=== PATIENT | female | born 1940 | race Caucasian/White ===

== ENCOUNTER → 2016-11-22 | Outpatient (CLI) | payer OTHER ==
[~2016-11-22] MED LIST: CMD/1; CMD1 PO; CTP2 PO; LEVO25TA5; LEVO25TA5 PO; LSX40 PO; METO100T14 PO; POTA20TA13 PO; SIMV80TA2 PO; TRIA0.02 TD; WARF1TAB PO; WARF4TAB44 PO
== END | disposition home or self-care (01) ==
LOC: C.LAB1850 09:23
PROVIDERS: ATTEND Internal Medicine
DX: E03.9 Hypothyroidism, unspecified (principal)

== ENCOUNTER → 2016-12-20 | Outpatient (CLI) | payer OTHER ==
[~2016-12-20] MED LIST changes: +IPRA1AER2 INH
== END | disposition home or self-care (01) ==
LOC: C.LAB1850 10:37
PROVIDERS: ATTEND Physician Assistant Medical
DX: E03.9 Hypothyroidism, unspecified (principal)

== ENCOUNTER → 2017-02-14 | Outpatient (CLI) | payer OTHER | END | disposition home or self-care (01) | LOC: C.LAB1850 09:42 | PROVIDERS: ATTEND Physician Assistant Medical | DX: E03.9 Hypothyroidism, unspecified (principal) ==

== ENCOUNTER → 2017-04-11 | Outpatient (CLI) | payer OTHER | END | disposition home or self-care (01) | LOC: C.LAB1850 10:21 | PROVIDERS: ATTEND Physician Assistant Medical | DX: E03.9 Hypothyroidism, unspecified (principal) ==

== ENCOUNTER 2017-04-20 22:58 | Emergency (ER) | payer OTHER ==
[~2017-04-20] VITALS: Ht 160 cm; Wt 62.9 kg
[~2017-04-20 22:58] MED LIST changes: -CMD/1; -IPRA1AER2 INH; -LEVO25TA5; -LEVO25TA5 PO; -WARF4TAB44 PO
[2017-04-20 23:04] VITALS: TEMP 36.7; Ht 160 cm; Wt 62.9 kg
[2017-04-20] MEDS ORDERED: KETOROLAC TROMETHAMINE 30 MG/ML VIAL IV STA (23:34)
[2017-04-20] MEDS ORDERED: CMD/1 (23:42)
[2017-04-20] MEDS ORDERED: LEVO25TA5 (23:42)
[2017-04-20] MEDS ORDERED: CTP2 PO (23:42)
--- NOTE | 2017-04-20 23:44 | EMERGENCY ROOM VISIT NOTE ---
History Report prepared by Phillip: Wes Hoyos Under the Supervision of: Dr. Carol Gilmore D.O. First contact with patient: 23:09 Chief Complaint: HIP PAIN Stated Complaint: LEFT HIP PAIN History of Present Illness The patient is a 76 year old female who presents to the Emergency Room with complaints of constant left hip pain that started around 1800. She rates her pain as an 8/10 in severity and admits the pain is worsened with movement. The patient states she felt fine today until around 1800 when she was walking through her mobile home and felt her left leg give out. She states that someone caught her before she had a chance to fall on the ground. The patient states that she tried to ambulate following the incident, but she could not ambulate without someone holding her up. She reports that she has had a history of hip problems in the past when she broke her right hip following a falling incident two weeks ago. Per the patient's history, she normally has a walker due to her history of visual impairment. She admits to a history of pneumonia, kidney problems, and thyroid problems. The patient reports that she has been eating and drinking her normal amount. She states that she typically sees Dr. Dickinson, James Sorto, and Dr. Hartmann for medical problems. The patient denies any abdominal pain, groin pain, fevers, and chills. Source of History: patient Onset: 1800 Position: leg (left) Symptom Intensity: 8/10 Timing: constant Modifying Factors (Worsening): movement Associated Symptoms: No fevers, No chills, No abdominal pain Review of Systems See HPI for pertinent positives & negatives. A total of 10 systems reviewed and were otherwise negative. Past Medical & Surgical Medical Problems: (1) Blind (2) Coumadin therapy (3) HTN (hypertension) (4) PE (5) Skin problems Surgical Problems: (1) H/O breast surgery (2) H/O: hysterectomy (3) History of appendectomy (4) History of hip surgery Family History Heart disease Hypertension Lung disease Social History Smoking Status: Former Smoker Alcohol Use: none Marital Status: Housing Status: lives with family Occupation Status: unemployed Current/Historical Medications Scheduled Clonidine HCl (Clonidine HCl), 0.2 MG PO Q12 Furosemide (Furosemide), 40 MG PO DAILY Levothyroxine Sodium (Levothyroxine Sodium), 75 MCG PO 3XWK Levothyroxine Sodium (Levothyroxine Sodium), 50 MCG PO 4XWK Metoprolol Tartrate (Lopressor) (Lopressor), 100 MG PO BID Potassium Chloride Microencaps (Potassium Chloride Er), 20 MEQ PO BID Simvastatin (Zocor), 80 MG PO QPM Warfarin Sodium (Warfarin Sodium), 1 TAB PO 3XWK Warfarin Sodium (Warfarin Sodium), 0.5 TAB PO 4XWK Allergies Coded Allergies: Aspirin (Verified Adverse Reaction, Mild, VOMITING, 04/20/17) Physical Exam Vital Signs Date Time Temp Pulse Resp B/P (MAP) Pulse Ox O2 Delivery O2 Flow Rate FiO2 04/21/17 00:47 72 18 160/89 96 Room Air 04/20/17 23:04 36.7 80 18 182/103 94 Room Air Physical Exam HEENT: Head - normocephalic and atraumatic Pupils are equal, round, and reactive to light. Extraocular eye muscles are intact, and sclera are anicteric. Nose - moist nasal mucosa without discharge. Mouth - moist buccal mucosa. Oropharynx is nonerythematous and there is no tonsillar exudate or edema noted. Neck: Supple; no JVD, nuchal rigidity, cervical lymphadenopathy. Heart: Regular rate and rhythm. There is a normal S1 and S2 with no murmurs, clicks, or gallops appreciated. Lungs: Clear to auscultation bilaterally with no wheezes, rales, or rhonchi. Abdomen: Soft, completely nontender, nondistended, with good bowel sounds. There are no palpable pulsatile masses or hepatosplenomegaly. There is no guarding, rigidity, or rebound noted. Extremities: No evidence of cyanosis, clubbing, or edema. There are easily palpable peripheral pulses. Limited range of motion to left hip secondary to pain. No significant pain with palpation. Skin: warm and dry with good turgor and no rashes. Medical Decision & Procedures ER Provider Diagnostic Interpretation: X-ray results as stated below per interpretation by me: LEFT HIP X-RAY: No obvious fractures, no joint effusion. Laboratory Results 04/20/17 23:40 Red Blood Count 4.41, Mean Corpuscular Volume 92.1, Mean Corpuscular Hemoglobin 29.9, Mean Corpuscular Hemoglobin Concent 32.5, Mean Platelet Volume 10.6, Neutrophils (%) (Auto) 77.3, Lymphocytes (%) (Auto) 13.4, Monocytes (%) (Auto) 8.3, Eosinophils (%) (Auto) 0.5, Basophils (%) (Auto) 0.3, Neutrophils # (Auto) 7.32, Lymphocytes # (Auto) 1.27, Monocytes # (Auto) 0.79, Eosinophils # (Auto) 0.05, Basophils # (Auto) 0.03 04/20/17 23:40 Test 04/20/17 23:40 White Blood Count 9.48 K/uL (4.8-10.8) Red Blood Count 4.41 M/uL (4.2-5.4) Hemoglobin 13.2 g/dL (12.0-16.0) Hematocrit 40.6 % (37-47) Mean Corpuscular Volume 92.1 fL (80-100) Mean Corpuscular Hemoglobin 29.9 pg (25-34) Mean Corpuscular Hemoglobin Concent 32.5 g/dl (32-36) Platelet Count 185 K/uL (130-400) Mean Platelet Volume 10.6 fL (7.4-10.4) Neutrophils (%) (Auto) 77.3 % Lymphocytes (%) (Auto) 13.4 % Monocytes (%) (Auto) 8.3 % Eosinophils (%) (Auto) 0.5 % Basophils (%) (Auto) 0.3 % Neutrophils # (Auto) 7.32 K/uL (1.4-6.5) Lymphocytes # (Auto) 1.27 K/uL (1.2-3.4) Monocytes # (Auto) 0.79 K/uL (0.11-0.59) Eosinophils # (Auto) 0.05 K/uL (0-0.5) Basophils # (Auto) 0.03 K/uL (0-0.2) RDW Standard Deviation 41.9 fL (36.4-46.3) RDW Coefficient of Variation 12.3 % (11.5-14.5) Immature Granulocyte % (Auto) 0.2 % Immature Granulocyte # (Auto) 0.02 K/uL (0.00-0.02) Erythrocyte Sedimentation Rate 39 mm/hr (0-21) Anion Gap 3.0 mmol/L (3-11) Est Creatinine Clear Calc Drug Dose 48.5 ml/min Estimated GFR () 72.0 Estimated GFR (Non- 62.2 BUN/Creatinine Ratio 12.4 (10-20) Calcium Level 9.3 mg/dl (8.5-10.1) C-Reactive Protein < 0.29 mg/dl (0-0.29) Laboratory results per my review. Medications Administered Medications (Trade) Dose Ordered Sig/Dominique Route Start Time Stop Time Status Last Admin Dose Admin Ketorolac Tromethamine (Toradol Inj) 30 mg NOW STAT IV 04/20/17 23:34 04/20/17 23:36 DC 04/20/17 23:45 30 MG Procedure Toradol Injection 30 mg IV ED Course 2325: Past medical records reviewed. The patient was evaluated in room B07. A complete history and physical exam was performed. Laboratory studies were drawn as above. 2334: Toradol Injection 30 mg IV. The patient went for plain films of the left hip as described above. 0058: I reevaluated the patient and she is experiencing significant improvement in pain with the Toradol administration. She will be ambulated soon. I discussed the results and treatment plan with the patient. She agreed and will able to be discharged home if she is able to ambulate. 0103: Nursing informed me that the patient was able to ambulate normally. She was discharged home. Medical Decision The patient is a 76 year old female who presents to the ED with complaints of constant left leg pain that began around 1800. Differential diagnosis includes occult fracture of the hip, tenosynovitis, bursitis, septic joint, hip strain. Lab results showed: Erythrocyte Sedimentation Rate 39, No Leukocytosis, Stable H &H, Glucose 114, Normal Renal function, Normal C reactive protein. The patient had a sudden onset of left hip pain. She denies any trauma. We considered the possibility of tenosynovitis and septic joint. The patient's sedimentation rate is slightly elevated with a normal C-reactive protein. There is no fever or leukocytosis. The patient's symptoms have resolved after Toradol. I've asked the patient to follow-up with her PCP if the discomfort continues. She was told to return here to the emergency department if she developed a fever. Medication Reconcilliation Current Medication List: was personally reviewed by me Blood Pressure Screening Patient's blood pressure: Elevated blood pressure Blood pressure disposition: Elevated BP felt to be situational Secondary to pain. Impression Primary Impression: Left hip pain Scribe Attestation The scribe's documentation has been prepared under my direction and personally reviewed by me in its entirety. I confirm that the note above accurately reflects all work, treatment, procedures, and medical decision making performed by me. Departure Information Dispostion Home / Self-Care Referrals No Doctor, Assigned (PCP) Forms HOME CARE DOCUMENTATION FORM, IMPORTANT VISIT INFORMATION, WORK / SCHOOL INSTRUCTIONS Patient Instructions My [facility] Additional Instructions Rest. Take motrin 600mg every 6 hours with food for pain Follow up with PCP by Monday if pain persists. Return to the ER if pain worsens or you develop a fever.
[2017-04-20] MEDS ORDERED: LEVO25TA5 PO ×2 (23:45)
[2017-04-20] MEDS ORDERED: WARF4TAB44 PO ×2 (23:47)
[2017-04-21 00:06] LABS: BASO % 0.3 %; BASO ABS # 0.03 K/uL (0-0.2); COMPLETE YES; EOS % 0.5 %; HEMATOCRIT 40.6 % (37-47); IG% 0.2 %; LYMPH % 13.4 %; LYMPH ABS # 1.27 K/uL (1.2-3.4); MEAN CELL VOLUME 92.1 fL (80-100); MEAN CORPUSCULAR HEMOGLOBIN 29.9 pg (25-34); MEAN CORPUSCULAR HGB CONC 32.5 g/dl (32-36); MEAN PLATELET VOLUME 10.6 fL (7.4-10.4); MONO % 8.3 %; NEUT % 77.3 %; PLATELET COUNT 185 K/uL (130-400); RED BLOOD COUNT 4.41 M/uL (4.2-5.4); WHITE BLOOD COUNT 9.48 K/uL (4.8-10.8)
[2017-04-21 00:24] LABS: BLOOD UREA NITROGEN 11 mg/dl (7-18); BUN/CREATININE RATIO 12.4 (10-20); CALCIUM 9.3 mg/dl (8.5-10.1); CARBON DIOXIDE 32 mmol/L (21-32); CHLORIDE 105 mmol/L (98-107); CREATININE 0.91 mg/dl (0.60-1.20); GLUCOSE 114 mg/dl (70-99); POTASSIUM 4.3 mmol/L (3.5-5.1); SODIUM 140 mmol/L (136-145)
[2017-04-21 00:25] LABS: C-REACTIVE PROTEIN < 0.29 mg/dl (0-0.29)
[2017-04-21 00:47] VITALS: BP 160/89; PULSE 72; O2SAT 96
--- NOTE | 2017-04-21 07:13 | DIAGNOSTIC IMAGING REPORT ---
LEFT HIP 2 VIEWS CLINICAL HISTORY: Left hip pain. FINDINGS: AP and frog-leg views of left hip are obtained. No prior studies are available for comparison at the time of dictation. The skeletal structures are osteopenic. There is no radiographic evidence of fracture in the left hip or the visualized left hemipelvis. Minimal arthritic change is noted in the left hip. Sclerotic change is seen in the left sacroiliac joint. The overlying soft tissues are within normal limits. Mild atherosclerotic calcification is seen in the left femoral artery. IMPRESSION: 1. There is no radiographic evidence of left hip fracture. 2. Osteopenia and mild arthritic change as above. Electronically signed by: Ruben Collins M.D. 04/21/2017 7:12 AM Dictated Date/Time: 04/21/2017 7:11 AM
== END 2017-04-21 01:09 | disposition home or self-care (01) ==
LOC: EDBD 22:58 → C.EDB 22:59
DX: M25.552 Pain in left hip (principal); H54.0 Blindness, both eyes; I10 Essential (primary) hypertension; Z79.01 Long term (current) use of anticoagulants; I26.99 Other pulmonary embolism without acute cor pulmonale; Z82.49 Family history of ischemic heart disease and other diseases of the circulatory system; Z87.891 Personal history of nicotine dependence

== ENCOUNTER 2017-06-18 23:15 | Inpatient (IN) | payer OTHER ==
[~2017-06-18] VITALS: Ht 165.1 cm; Wt 60.9 kg
[~2017-06-18 23:15] MED LIST changes: -CMD1 PO; +LEVO25TA5 PO; -TRIA0.02 TD; -WARF1TAB PO; +WARF4TAB44 PO
--- NOTE | 2017-06-18 23:43 | EMERGENCY ROOM VISIT NOTE ---
History Report prepared by Phillip: Lex Jean Baptiste Under the Supervision of: Dr. Carol Gilmore D.O. First contact with patient: 23:23 Chief Complaint: RECTAL BLEEDING Stated Complaint: VAGINAL BLEEDING History of Present Illness The patient is a 76 year old female who presents to the Emergency Room for a rectal bleed that she experience shortly prior to arrival. The patient states that she felt like she was going to have a diarrhea-like bowel movement this evening. After going to the restroom she was told by her that there was blood in the toilet, as the patient is blind. She denies having experienced any bloody stools in the past. She has never had a colonoscopy performed. The patient is on Coumadin due to a history of pulmonary emboli. She had her INR checked two weeks ago and it was slightly elevated, but she could not recall the specific number. She has had trouble with her INR levels since she started a new thyroid medication 1 month ago. Source of History: patient Onset: Shortly SCALLOPER Position: other (Gastrointestinal ) Quality: other (GI Bleeding) Associated Symptoms: + diarrhea Review of Systems See HPI for pertinent positives & negatives. A total of 10 systems reviewed and were otherwise negative. Past Medical & Surgical Medical Problems: (1) Blind (2) Coumadin therapy (3) HTN (hypertension) (4) Lower GI bleed (5) PE (6) Skin problems Surgical Problems: (1) H/O breast surgery (2) H/O: hysterectomy (3) History of appendectomy (4) History of hip surgery Family History Heart disease Hypertension Lung disease Social History Smoking Status: Former Smoker Alcohol Use: none Marital Status: Housing Status: lives with family Occupation Status: unemployed Current/Historical Medications Scheduled Clonidine HCl (Clonidine HCl), 0.2 MG PO Q12 Furosemide (Furosemide), 40 MG PO DAILY Levothyroxine Sodium (Levothyroxine Sodium), 75 MCG PO 3XWK Levothyroxine Sodium (Levothyroxine Sodium), 50 MCG PO 4XWK Metoprolol Tartrate (Lopressor) (Lopressor), 100 MG PO BID Potassium Chloride Microencaps (Potassium Chloride Er), 20 MEQ PO BID Simvastatin (Zocor), 80 MG PO QPM Warfarin Sodium (Warfarin Sodium), 1 TAB PO DAILY Allergies Coded Allergies: Aspirin (Verified Adverse Reaction, Mild, VOMITING, 06/18/17) Physical Exam Vital Signs Date Time Temp Pulse Resp B/P (MAP) Pulse Ox O2 Delivery O2 Flow Rate FiO2 06/19/17 01:39 83 23 145/86 93 Room Air 06/19/17 00:34 86 23 154/81 94 Room Air 06/18/17 23:21 36.5 85 24 177/99 95 Room Air Physical Exam HEENT: Head - normocephalic and atraumatic Pupils are equal, round, and reactive to light. Extraocular eye muscles are intact, and sclera are anicteric. Nose - moist nasal mucosa without discharge. Mouth - moist buccal mucosa. Oropharynx is nonerythematous and there is no tonsillar exudate or edema noted. Neck: Supple; no JVD, nuchal rigidity, cervical lymphadenopathy. Heart: Regular rate and rhythm. There is a normal S1 and S2 with no murmurs, clicks, or gallops appreciated. Lungs: Clear to auscultation bilaterally with no wheezes, rales, or rhonchi. Abdomen: Soft, completely nontender, nondistended, with good bowel sounds. There are no palpable pulsatile masses or hepatosplenomegaly. There is no guarding, rigidity, or rebound noted. Extremities: No evidence of cyanosis, clubbing, or edema. There are easily palpable peripheral pulses. Skin: Pale. warm and dry with good turgor and no rashes. Rectal: Moderate amount of blood at the rectum. Obvious external hemorrhoids. Medical Decision & Procedures Laboratory Results 06/18/17 23:49 06/18/17 23:49 Test 06/18/17 23:49 Red Blood Count 4.20 M/uL (4.2-5.4) Mean Corpuscular Volume 92.4 fL (80-100) Mean Corpuscular Hemoglobin 31.9 pg (25-34) Mean Corpuscular Hemoglobin Concent 34.5 g/dl (32-36) RDW Standard Deviation 42.5 fL (36.4-46.3) RDW Coefficient of Variation 12.6 % (11.5-14.5) Mean Platelet Volume 10.7 fL (7.4-10.4) Prothrombin Time 28.6 SECONDS (9.0-12.0) Prothromb Time International Ratio 2.6 (0.9-1.1) Activated Partial Thromboplast Time 36.7 SECONDS (21.0-31.0) Partial Thromboplastin Ratio 1.4 Anion Gap 8.0 mmol/L (3-11) Estimated GFR () 57.3 Estimated GFR (Non- 49.4 BUN/Creatinine Ratio 14.5 (10-20) Calcium Level 9.1 mg/dl (8.5-10.1) Laboratory results per my review. Medications Administered Medications (Trade) Dose Ordered Sig/Dominique Route Start Time Stop Time Status Last Admin Dose Admin Phytonadione 5 mg/ Sodium Chloride 50.5 ml @ 101 mls/hr ONE ONCE IV 06/19/17 01:30 06/19/17 01:59 DC 06/19/17 01:39 101 MLS/HR ECG Indication: other (GI Bleed) Rate (beats per minute): 86 Rhythm: normal sinus Findings: no acute ischemic change, no ectopy ED Course 2325: Past medical records reviewed. The patient was evaluated in room B12. A complete history and physical exam was performed. An IV lock was initiated and labs were drawn as above. 0055: I reevaluated the patient at this time. She is doing well. I discussed her laboratory results. The patient had a large bowel movement with significant amount of blood and blood clots. 0101: I discussed the case with Dr. [facility] Hospitalist, he will evaluate the patient for further treatment. Medical Decision The patient is a 76 year old female who presents to the Emergency Department for a rectal bleed. Differential Diagnosis includes; Hemorrhoidal bleeding, lower gastrointestinal bleeding, supratherapeutic INR, anemia, upper gastrointestinal bleeding. Laboratory results were reviewed and show; Normal white count, normal hemoglobin and hematocrit, normal renal function, normal glucose, and an INR of 2.6. The patient denies any abdominal pain or cramping. She had what she thought was normal bowel movements night with a little bit of diarrhea while in reality there was hematochezia. The patient has never had a colonoscopy. Her H&H are stable. She was hemodynamically stable. I discussed the case with the [facility] Hospitalist and they will evaluate for further management. Medication Reconcilliation Current Medication List: was personally reviewed by me Blood Pressure Screening Patient's blood pressure: Elevated blood pressure Will be evaluated during impatient stay. Consults Time Called: 57 Consulting Physician: Dr. Janusz BRUNO Hospitalist Returned Call: 0101 I discussed the case with Dr. Janusz BRUNO Hospitalist, he will evaluate the patient for further treatment. Impression Primary Impression: Rectal bleeding Scribe Attestation The scribe's documentation has been prepared under my direction and personally reviewed by me in its entirety. I confirm that the note above accurately reflects all work, treatment, procedures, and medical decision making performed by me. Departure Information Dispostion Being Evaluated By Hospitalist Referrals Nemesio Dickinson M.D. (PCP) Patient Instructions My [facility]
[2017-06-18 23:56] LABS: HEMATOCRIT 38.8 % (37-47); MEAN CELL VOLUME 92.4 fL (80-100); MEAN CORPUSCULAR HEMOGLOBIN 31.9 pg (25-34); MEAN CORPUSCULAR HGB CONC 34.5 g/dl (32-36); MEAN PLATELET VOLUME 10.7 fL (7.4-10.4); PLATELET COUNT 176 K/uL (130-400); WHITE BLOOD COUNT 8.13 K/uL (4.8-10.8)
[2017-06-19] VITALS (8 sets, daily range): BP systolic 92–172; BP diastolic 54–98; PULSE 69–86; TEMP 36.4–36.8; O2SAT 94–96; Ht 165.1 cm; Wt 60.9 kg
[2017-06-19 00:07] LABS: INR 2.6 (0.9-1.1); PARTIAL THROMBOPLASTIN RATIO 1.4; PROTHROMBIN TIME (PATIENT) 28.6 SECONDS (9.0-12.0)
[2017-06-19 00:15] LABS: BLOOD UREA NITROGEN 16 mg/dl (7-18); BUN/CREATININE RATIO 14.5 (10-20); CALCIUM 9.1 mg/dl (8.5-10.1); CARBON DIOXIDE 30 mmol/L (21-32); CHLORIDE 103 mmol/L (98-107); GLUCOSE 105 mg/dl (70-99); POTASSIUM 4.2 mmol/L (3.5-5.1); SODIUM 141 mmol/L (136-145)
[2017-06-19] MEDS ORDERED: PHYTONADIONE INJ 5 MG in SODIUM CHLORIDE 0.9% 50ML 50 ML IV ONE (01:30)
--- NOTE | 2017-06-19 01:50 | History and Physical ---
History & Physical Date & Time of Service: Jun 19, 2017 at 01:33 Chief Complaint: Vaginal Bleeding Primary Care Physician: James Sorto P.AEddie History of Present Illness Source: patient, family, spouse 76 y/o F Hx HTN, HPL, CAD, protein S deficiency- PE - on Coumadin. Pt was helped off the toilet by her padmini menezes who noted that the bowl was full of blood and brought her into the hospital therefore. She denies preceding diarrhea, abdominal pain, nausea, vomiting, SOB or lightheadedness. Two additional episodes of hematochezia - bright red blood - were noted while she was in the ER. 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 Coumadin therapy 2) HTN 3) HPL 4) COPD - does not require daily treatment 5) Macular degeneration - legally blind 6) CAD - nonocclusive 7) Psoriasis 8) Chronic lower extremity edema Surgical Problems: (1) H/O breast surgery Status: Resolved (2) H/O: hysterectomy Status: Resolved (3) History of appendectomy Status: Resolved (4) History of hip surgery Status: Resolved Family History Heart disease Hypertension Lung disease Macular degeneration, CAD, COPD Social History Quit smoking 7 years ago - 30 pack history - does not drink - lives with family Smoking Status: Former Smoker Marital Status: Housing status: lives with family Occupational Status: unemployed Immunizations History of Influenza Vaccine: No History of Tetanus Vaccine?: Unknown History of Pneumococcal: No History of Hepatitis B Vaccine: No Multi-Drug Resistant Organisms History of MDRO: No Allergies Coded Allergies: Aspirin (Verified Adverse Reaction, Mild, VOMITING, 06/18/17) Home Medications Scheduled Clonidine HCl (Clonidine HCl), 0.2 MG PO Q12 Furosemide (Furosemide), 40 MG PO DAILY Levothyroxine Sodium (Levothyroxine Sodium), 75 MCG PO 3XWK Levothyroxine Sodium (Levothyroxine Sodium), 50 MCG PO 4XWK Metoprolol Tartrate (Lopressor) (Lopressor), 100 MG PO BID Potassium Chloride Microencaps (Potassium Chloride Er), 20 MEQ PO BID Simvastatin (Zocor), 80 MG PO QPM Warfarin Sodium (Warfarin Sodium), 1 TAB PO DAILY Review of Systems Constitutional: No fever, No chills, No sweats Eyes: + worsening of vision (legally blind) ENT: No hearing loss, No unusual epistaxis, No nasal symptoms Respiratory: No cough, No sputum, No wheezing Cardiovascular: No chest pain, No orthopnea, No PND Abdomen: + GI bleeding, No pain, No nausea, No vomiting Musculoskeletal: No joint pain Genitourinary - Female: No dysuria Neurologic: No memory loss, No paralysis, No weakness Psychiatric: No depression symptoms Endocrine: No fatigue Hematologic / Lymphatic: No abnormal bleeding/bruising Integumentary: + problem reported (Psoriasis is apparent on legs) Allergic / Immunologic: No environmental allergies Physical Exam Vital Signs Date Time Temp Pulse Resp B/P (MAP) Pulse Ox O2 Delivery O2 Flow Rate FiO2 06/19/17 00:34 86 23 154/81 94 Room Air 06/18/17 23:21 36.5 85 24 177/99 95 Room Air General Appearance: WD/WN, no apparent distress Head: normocephalic Eyes: + pertinent finding (lrgally blind) ENT: normal ENT inspection, pharynx normal Neck: supple, no JVD Respiratory/Chest: chest non-tender, lungs clear Cardiovascular: regular rate, rhythm, no edema, no gallop Abdomen/GI: normal bowel sounds, non tender, soft Back: normal inspection, no CVA tenderness, no muscle spasm, normal range of motion Extremities/Musculoskelatal: no calf tenderness, normal capillary refill, normal range of motion, + pedal edema Neurologic/Psych: practice specialist II-XII nml as tested, no motor/sensory deficits, alert, oriented x 3 Skin: warm/dry, + pertinent finding (Area of psoriasis - mild - on lower extrems) Diagnostics Laboratory Results Results Past 24 Hours Test 06/18/17 23:49 Range/Units White Blood Count 8.13 4.8-10.8 K/uL Red Blood Count 4.20 4.2-5.4 M/uL Hemoglobin 13.4 12.0-16.0 g/dL Hematocrit 38.8 37-47 % Mean Corpuscular Volume 92.4 80-100 fL Mean Corpuscular Hemoglobin 31.9 25-34 pg Mean Corpuscular Hemoglobin Concent 34.5 32-36 g/dl RDW Standard Deviation 42.5 36.4-46.3 fL RDW Coefficient of Variation 12.6 11.5-14.5 % Platelet Count 176 130-400 K/uL Mean Platelet Volume 10.7 7.4-10.4 fL Prothrombin Time 28.6 9.0-12.0 SECONDS Prothromb Time International Ratio 2.6 0.9-1.1 Activated Partial Thromboplast Time 36.7 21.0-31.0 SECONDS Partial Thromboplastin Ratio 1.4 Sodium Level 141 136-145 mmol/L Potassium Level 4.2 3.5-5.1 mmol/L Chloride Level 103 98-107 mmol/L Carbon Dioxide Level 30 21-32 mmol/L Anion Gap 8.0 3-11 mmol/L Blood Urea Nitrogen 16 7-18 mg/dl Creatinine 1.10 0.60-1.20 mg/dl Estimated GFR () 57.3 Estimated GFR (Non- 49.4 BUN/Creatinine Ratio 14.5 10-20 Random Glucose 105 70-99 mg/dl Calcium Level 9.1 8.5-10.1 mg/dl Impression Assessment and Plan 76 y/o F Hx HTN, HPL, CAD, protein S deficiency- PE - on Coumadin. Pt was helped off the toilet by her padmini menezes who noted that the bowl was full of blood and brought her into the hospital therefore. She denies preceding diarrhea, abdominal pain, nausea, vomiting, SOB or lightheadedness. Two additional episodes of hematochezia - bright red blood - were noted while she was in the ER. 1) GI bleed - Provided initial dose of vitamin K, serial hemoglobin ordered, GI consult requested - consent for transfusion obtained. Pt kept NPO pending GI eval. Receiving IVF. 2) Protein S deficiency - history of PE - will apply SCDS - should resume anticoagulation at the earliest time as PE was apparently life-threatening. 3) HTN - cont Bblocker, Clonindine with parameters - Lasix held. 4) HPL - cont statin 5) CAD - nonocclusive - cont Statin, Bblocker Full code - SCDs Total time for this admit including review of labs, meds, records - discussion with pt, family, ER attending - 35 min
[2017-06-19] MEDS ORDERED: MoRPHine SULFATE 2 MG/ML CARP IV PRN (02:00)
[2017-06-19] MEDS ORDERED: ONDANSETRON INJ 2 MG/ML 2 ML VIAL IV PRN (02:00)
[2017-06-19] MEDS ORDERED: D5W AND NSS 1,000 ML IV SCH (02:30)
[2017-06-19] MEDS ORDERED: LEVOTHYROXINE 50 MCG TAB PO SCH (06:00)
[2017-06-19] MEDS ORDERED: INFLUENZA ADMINISTRATION CHARGE ONE (08:00)
[2017-06-19] MEDS ORDERED: PNEUMOCOCCAL POLYSACCHARIDES 25 MCG/0.5 ML VIAL/SYR IM. ONE (08:00)
[2017-06-19] MEDS ORDERED: INFLUENZA VACCINE HIGH DOSE 65+ 0.5 ML SYR IM. ONE (08:00)
[2017-06-19] MEDS ORDERED: PNEUMOCOCCAL ADMINISTRATION CHARGE ONE (08:00)
[2017-06-19] MEDS ORDERED: METOPROLOL TARTRATE 100 MG TAB PO SCH (09:00)
[2017-06-19] MEDS ORDERED: CLONIDINE HCL 0.1 MG TAB PO SCH (09:00)
--- NOTE | 2017-06-19 11:47 | Gastrointestinal Consultation ---
Gastrointestinal Consultation Date of Consultation: Jun 19, 2017 Attending Physician: Steve Conn Consulting Physician: Melanie Tenorio Reason for Consultation: Lower GI bleed History of Present Illness Patient is a 76 year old female w PMHx of HTN, hyperlipidemia, CAD, protein S deficiency, PE on Coumadin who presented to ED w rectal bleeding. She was going to take a bath at 11PM, felt the urge to defecate. After having BM, she was helped off toilet by who noticed bowl full of bright red blood and also stool mixed. She denies any associated abd pain, n/v, CP, SOB, light headedness or presyncopal episodes. She was brought to ED and noted 2 more episodes of bloody BMs by 2AM. Labs showed Hgb 13 initially, then dropped to 11.8, but stayed stable in last few hours. CMP unremarkable. INR 2.6 on Coumadin. She denies any family hx of IBD, colorectal ca. She never had a colonoscopy before. Past Medical/Surgical History Medical Problems: (1) Basal pneumonia Status: Acute (2) Left hip pain Status: Acute (3) Rectal bleeding Status: Acute (4) Renal insufficiency Status: Acute (5) Right lower lobe pneumonia Status: Acute (6) URI (upper respiratory infection) Status: Acute Past Medical History: See above. Past Surgical History: Breast sx, hysterectomy, appendectomy, hip surgery Family History Heart disease Hypertension Lung disease Social History Smoking Status: Former Smoker Alcohol Use: none Marital Status: Housing Status: lives with family Occupation Status: unemployed Allergies Coded Allergies: Aspirin (Verified Adverse Reaction, Mild, VOMITING, 06/18/17) Current Medications Home Meds and Scripts Medications Dose Route/Sig Max Daily Dose Days Date Category Dose Instructions Warfarin Sodium 1 Mg Tab 1 Tab PO DAILY 04/20/17 Reported Levothyroxine Sodium 25 Mcg Tab 50 Mcg PO 4XWK 04/20/17 Reported take 2 tablets daily on mon//mon/mon Levothyroxine Sodium 25 Mcg Tab 75 Mcg PO 3XWK 04/20/17 Reported take 3 tablets daily on mon/mon/mon Clonidine HCl 0.2 Mg Tab 0.2 Mg PO Q12 04/20/17 Reported Potassium Chloride Er (Potassium Chloride Microencaps) 20 Meq Tab 20 Meq PO BID 12/11/15 Rx Furosemide 40 Mg Tab 40 Mg PO DAILY 09/24/14 Reported Lopressor (Metoprolol Tartrate) 100 Mg Tab 100 Mg PO BID 03/31/11 Reported Zocor (Simvastatin) 80 Mg Tab 80 Mg PO QPM 03/31/11 Reported Review of Systems Constitutional: No fever, No chills Respiratory: No cough, No shortness of breath Cardiac: No chest pain Abdomen: + see HPI, + GI bleeding, No pain, No nausea, No vomiting Physical Exam Date Time Temp Pulse Resp B/P (MAP) Pulse Ox O2 Delivery O2 Flow Rate FiO2 06/19/17 11:13 36.8 69 15 92/54 (67) 95 Room Air 06/19/17 08:30 94 Room Air 06/19/17 07:48 36.7 84 16 115/75 (88) 94 Room Air 06/19/17 04:19 36.4 79 17 119/68 (85) 96 Room Air 06/19/17 04:00 Room Air 06/19/17 02:22 36.4 86 18 172/98 95 Room Air 06/19/17 02:12 83 23 145/86 94 06/19/17 01:39 83 23 145/86 93 Room Air 06/19/17 00:34 86 23 154/81 94 Room Air 06/18/17 23:21 36.5 85 24 177/99 95 Room Air General Appearance: WD/WN, no apparent distress Eyes: normal inspection, PERRL, EOMI Neck: supple, no JVD, trachea midline Respiratory/Chest: normal breath sounds, no respiratory distress, no accessory muscle use Cardiovascular: regular rate, rhythm, no gallop, no murmur Abdomen: normal bowel sounds, non tender, soft, + pertinent finding (Rectal exam: small non thrombosed ext hemorrhoids, internal exam w/o obvious mass, + dried dark red colored stools) Extremities: normal inspection, no pedal edema, no calf tenderness Neurologic/Psych: alert, normal mood/affect, oriented x 3 Skin: normal color, no jaundice, no rash Laboratory Results Last 24 Hours Test 06/18/17 23:49 06/19/17 04:18 06/19/17 07:36 White Blood Count 8.13 K/uL Red Blood Count 4.20 M/uL Hemoglobin 13.4 g/dL 11.8 g/dL 11.8 g/dL Hematocrit 38.8 % Mean Corpuscular Volume 92.4 fL Mean Corpuscular Hemoglobin 31.9 pg Mean Corpuscular Hemoglobin Concent 34.5 g/dl RDW Standard Deviation 42.5 fL RDW Coefficient of Variation 12.6 % Platelet Count 176 K/uL Mean Platelet Volume 10.7 fL Prothrombin Time 28.6 SECONDS Prothromb Time International Ratio 2.6 Activated Partial Thromboplast Time 36.7 SECONDS Partial Thromboplastin Ratio 1.4 Sodium Level 141 mmol/L Potassium Level 4.2 mmol/L Chloride Level 103 mmol/L Carbon Dioxide Level 30 mmol/L Anion Gap 8.0 mmol/L Blood Urea Nitrogen 16 mg/dl Creatinine 1.10 mg/dl Estimated GFR () 57.3 Estimated GFR (Non- 49.4 BUN/Creatinine Ratio 14.5 Random Glucose 105 mg/dl Calcium Level 9.1 mg/dl Impression Patient is a 76 year old female w painless rectal bleeding last night, none since ED around 2AM. Hgb stayed stable since last few hours. Suspect diverticular bleed vs hemorrhoidal bleed though no signs of obvious ext/int hemorrhoids that had signs of previous bleed. Plan - Monitor H/H and transfuse prn - Advance diet as tolerated - No contraindication for DC by tomorrow if continues to be stable. Will help arrange for outpt colonoscopy eval
--- NOTE | 2017-06-19 14:57 | Discharge Instructions ---
Discharge Instructions Date of Service Jun 19, 2017. Admission Reason for Admission: Lower Gi Bleed Discharge Discharge Diagnosis / Problem: Blood in bowel movements Discharge Goals Goal(s): Improve disease control Activity Recommendations Activity Limitations: resume your previous activity . Instructions / Follow-Up Instructions / Follow-Up You were admitted to [facility] because you passed a large amount of blood in your bowel movements. Because of this, your hemoglobin levels dropped from 13 to 11 while you were here, but have held steady since, and therefore you did not require a blood transfusion. We stopped your warfarin at this time, and would recommend you do not take it until you have had your follow up colonoscopy and appointment with the GI doctors so that they can determine ths source of the bleeding. We also recommend you decrease your home dose of Lasix to 20mg instead of 40mg as your blood pressure was on the lower side during your time here. You can continue all other home medications as prescribed. Please follow up with your PCP as well to monitor your hemoglobin levels. Current Hospital Diet Patient's current hospital diet: AHA Diet (Heart Healthy) Discharge Diet Recommended Diet: AHA Diet (Heart Healthy) Pending Studies Studies pending at discharge: no Medical Emergencies . Who to Call and When: Medical Emergencies: If at any time you feel your situation is an emergency, please call 911 immediately. . Non-Emergent Contact Non-Emergency issues call your: Primary Care Provider . . "Provider Documentation" section prepared by Tuyet Arreola. . VTE Core Measure Inpt VTE Proph given/why not?: SCD's
[2017-06-19] MEDS ORDERED: LSX40 PO (16:25)
--- NOTE | 2017-06-19 16:35 | Discharge Summary ---
Discharge Summary Date of Service Jun 19, 2017. (Tuyet Arreola M.D.) Discharge Summary Admission Date: Jun 19, 2017 at 01:52 Discharge Date: Jun 19, 2017 Discharge Disposition: Home Principal Diagnosis: Hematochezia Immunizations: Have You Had Influenza Vaccine: No History of Tetanus Vaccine?: Unknown History of Pneumococcal: No History of Hepatitis B Vaccine: No (Tuyet Arreola M.D.) Medication Reconciliation Changed Medications: Furosemide (Furosemide) 40 Mg Tab 20 MG PO DAILY, #90 TABS (Changed from: 40 MG) Continued Medications: Clonidine HCl (Clonidine HCl) 0.2 Mg Tab 0.2 MG PO Q12 Levothyroxine Sodium (Levothyroxine Sodium) 25 Mcg Tab 75 MCG PO 3XWK, 1 Refill take 3 tablets daily on mon/mon/mon Levothyroxine Sodium (Levothyroxine Sodium) 25 Mcg Tab 50 MCG PO 4XWK, 3 Refills take 2 tablets daily on mon//mon/mon Metoprolol Tartrate (Lopressor) (Lopressor) 100 Mg Tab 100 MG PO BID, 0 Refills Potassium Chloride Microencaps (Potassium Chloride Er) 20 Meq Tab 20 MEQ PO BID, #60 Simvastatin (Zocor) 80 Mg Tab 80 MG PO QPM, 0 Refills Discontinued Medications: Warfarin Sodium (Warfarin Sodium) 1 Mg Tab 1 TAB PO DAILY Discharge Exam Ms. Ospina reports that she feels well today. She denies any abdominal pain, SOB, chest pain, n/v, or fevers. She states that she has not had any bowel movements since last night, and that she is happy to be followed up in the outpatient setting. Review of Systems: Constitutional: No fever, No chills, No sweats Eyes: + problem reported (longstanding loss of vision - able to see shadows) Respiratory: No cough, No sputum, No shortness of breath, No dyspnea on exertion, No dyspnea at rest Cardiovascular: No chest pain, No orthopnea, No PND Abdomen: + GI bleeding, No pain, No nausea, No vomiting, No diarrhea Genitourinary - Female: No dysuria, No hematuria Physical Exam: General Appearance: WD/WN, no apparent distress Respiratory/Chest: chest non-tender, lungs clear, normal breath sounds, no respiratory distress, no accessory muscle use Cardiovascular: regular rate, rhythm, no gallop, no JVD, no murmur, normal peripheral pulses, + pertinent finding (1+ edema bilaterally in legs) Abdomen / GI: normal bowel sounds, non tender, soft, no organomegaly, no pulsatile mass (Tuyet Arreola M.D.) Hospital Course Ms. Ospina was admitted to [facility] following an episode of hematochezia. She subsequently passed two more bowel movements with the presence of blood and clots. Her hemoglobin dropped from 13.4 to 11 while she was in the hospital, but has held steady at 11, and she has not had any more bowel movements during the day. She was seen by gastroenterology who recommended an outpatient colonoscopy. Her warfarin (for prior PE in 2006 & Protein S deficiency) will be held at this time until she sees gastroenterology in the outpatient setting. Her Lasix dose was also reduced to 20mg daily. She can follow up with her PCP this week to monitor her symptoms and hemoglobin levels. Total Time Spent: Less than 30 minutes This includes examination of the patient, discharge planning, medication reconciliation, and communication with other providers. (Tuyte Arreola M.D.) Resident Physician Supervision Note: I interviewed and examined the patient. Discussed with Dr. Arreola and agree with findings and plan as documented in the note. Any exceptions or clarifications are listed here: None Documented By: Steve Conn feeling better. wants to go home. no further GI bleeding. discussed case w GI - agreed w scope as outpt. pt did not have regular PCP - followed with cardiology regularly but no primary - set up w residency team for f/u. vitals noted nad breathing unlabored no pallor or icterus GI bleed w coumadin likely as amplifying factor, mild acute blood loss anemia -stable -ok to hold coumadin for now - only has ever had one clot - appears to have been in 2010 after knee surgery (and it appears she was still smoking at the time), so despite protein S deficiency, somewhat controversial as to whether she should be on [employer] anticoagulation - will defer to outpt decision making , but certainly appears for all those reasons to be safer to hold anticoagulation for now. bleeding has stopped both clinically and with stability in blood counts. pt wants to go home, and with no time at which she lost hemodynamic stability, appears safe and reasonable for now -PCP on monday, CBC as outpt then -GI f/u and endoscopic w/u over next 1-2 weeks Total Time Spent: Less than 30 minutes (Steve Conn D.O.) Discharge Instructions Please refer to the electronic Patient Visit Report (Discharge Instructions) for additional information. (Tuyet Arreola M.D.) Additional Copies To Melanie Tenorio, DO; Tuyet Arreola M.D. Resident Tracking Resident Involvement: Resident Care Provided Care Provided: [facility] (Tuyet Arreola M.D.)
[2017-06-19] MEDS ORDERED: SIMVASTATIN 80 MG TAB PO SCH (21:00)
== END 2017-06-19 17:01 | disposition home or self-care (01) | DRG 813 ==
LOC: EDBD 23:15 → C.EDB 23:16 → C.2E 06-19 01:52 → EDBEDREQ 06-19 01:55 → ENRESERV 06-19 02:02
PROVIDERS: ADMIT Internal Medicine; ATTEND Family Medicine
DX: D68.32 Hemorrhagic disorder due to extrinsic circulating anticoagulants (principal); K92.1 Melena; D62 Acute posthemorrhagic anemia; D68.59 Other primary thrombophilia; T45.515A Adverse effect of anticoagulants, initial encounter; I10 Essential (primary) hypertension; E78.5 Hyperlipidemia, unspecified; I25.10 Atherosclerotic heart disease of native coronary artery without angina pectoris; Z87.891 Personal history of nicotine dependence; Z86.711 Personal history of pulmonary embolism; Z79.01 Long term (current) use of anticoagulants; Z79.899 Other long term (current) drug therapy; Z82.49 Family history of ischemic heart disease and other diseases of the circulatory system; Z82.5 Family history of asthma and other chronic lower respiratory diseases; Z83.518 Family history of other specified eye disorder

== ENCOUNTER → 2017-06-23 | Outpatient (CLI) | payer OTHER ==
[~2017-06-23] MED LIST changes: +IPRA1AER2 INH; -WARF4TAB44 PO
[2017-06-23 12:10] LABS: HEMATOCRIT 36.5 % (37-47); MEAN CELL VOLUME 92.6 fL (80-100); MEAN CORPUSCULAR HGB CONC 33.4 g/dl (32-36); MEAN PLATELET VOLUME 10.9 fL (7.4-10.4); PLATELET COUNT 172 K/uL (130-400); RED BLOOD COUNT 3.94 M/uL (4.2-5.4); WHITE BLOOD COUNT 7.43 K/uL (4.8-10.8)
== END | disposition home or self-care (01) ==
LOC: C.LAB1850 10:41
PROVIDERS: ATTEND Student in an Organized Health Care Education/Training Program
DX: K92.1 Melena (principal)

== ENCOUNTER 2017-06-28 08:15 | Emergency (ER) | payer OTHER ==
[~2017-06-28 08:15] MED LIST changes: -IPRA1AER2 INH
[2017-06-28 08:16] VITALS: PULSE 90; TEMP 36.7; O2SAT 92
[2017-06-28] MEDS ORDERED: IPRA1AER2 INH (08:51)
--- NOTE | 2017-06-28 09:02 | DIAGNOSTIC IMAGING REPORT ---
CHEST ONE VIEW PORTABLE HISTORY: EVALUATE GI BLEED COMPARISON: Chest 12/10/2015. FINDINGS: The lungs are clear. Cardiac silhouette is normal in size. No pleural effusions. No pneumothorax. Stable blunting of the right lateral costophrenic sulcus. Mild emphysema. Dextroscoliosis of the thoracolumbar spine. IMPRESSION: No significant change compared to the prior study. No acute process. Electronically signed by: Tima Leon M.D. 06/28/2017 9:00 AM Dictated Date/Time: 06/28/2017 8:56 AM
[2017-06-28 09:41] LABS: BASO % 0.7 %; BASO ABS # 0.05 K/uL (0-0.2); COMPLETE YES; HEMATOCRIT 37.8 % (37-47); IG% 0.3 %; LYMPH % 21.4 %; MEAN CORPUSCULAR HEMOGLOBIN 31.6 pg (25-34); MEAN CORPUSCULAR HGB CONC 34.4 g/dl (32-36); MEAN PLATELET VOLUME 10.5 fL (7.4-10.4); MONO % 8.7 %; NEUT % 67.9 %; PLATELET COUNT 184 K/uL (130-400); RED BLOOD COUNT 4.11 M/uL (4.2-5.4); WHITE BLOOD COUNT 7.02 K/uL (4.8-10.8)
[2017-06-28 09:57] VITALS: BP 170/93
[2017-06-28 09:59] LABS: PROTHROMBIN TIME (PATIENT) 10.6 SECONDS (9.0-12.0)
[2017-06-28 10:02] LABS: ALT/SGPT 19 U/L (12-78); AST/SGOT 21 U/L (15-37); BLOOD UREA NITROGEN 11 mg/dl (7-18); BUN/CREATININE RATIO 12.5 (10-20); CALCIUM 9.4 mg/dl (8.5-10.1); CARBON DIOXIDE 31 mmol/L (21-32); CHLORIDE 105 mmol/L (98-107); CREATININE 0.89 mg/dl (0.60-1.20); GLUCOSE 94 mg/dl (70-99); POTASSIUM 3.8 mmol/L (3.5-5.1); SODIUM 143 mmol/L (136-145)
[2017-06-28 10:10] LABS: ALKALINE PHOSPHATASE 120 U/L (45-117)
--- NOTE | 2017-06-28 11:21 | EMERGENCY ROOM VISIT NOTE ---
History Report prepared by Phillip: Cheryl Au Under the Supervision of: Dr. Rebel Oreilly D.O. First contact with patient: 08:26 Stated Complaint: GI ASSESSEMENT History of Present Illness The patient is a 76 year old female who presents to the Emergency Room with complaints of persistent rectal bleeding that began this morning around 0700. The patient states that she has a history of this in the past, noting that she was evaluated in the hospital for it. She states that earlier this morning she had a bowel movement that was diarrhea in consistency. 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 She states that she was previously on Warfarin, but notes that after her previous episode of rectal bleeding, she stopped her Warfarin. The patient states that she is scheduled for a colonoscopy on Monday. She states that she has not taken her normal medications this morning including her blood pressure medications. Source of History: patient Onset: this morning around 0700 Position: other (rectal) Quality: other (bleeding) Timing: other (persistent) Associated Symptoms: + diarrhea Review of Systems See HPI for pertinent positives & negatives. A total of 10 systems reviewed and were otherwise negative. Past Medical & Surgical Medical Problems: (1) Blind (2) Coumadin therapy (3) HTN (hypertension) (4) Lower GI bleed (5) PE (6) Skin problems Surgical Problems: (1) H/O breast surgery (2) H/O: hysterectomy (3) History of appendectomy (4) History of hip surgery Family History Heart disease Hypertension Lung disease Social History Smoking Status: Former Smoker Alcohol Use: none Marital Status: Housing Status: lives with family Occupation Status: unemployed Current/Historical Medications Scheduled Clonidine HCl (Clonidine HCl), 0.2 MG PO Q12 Furosemide (Furosemide), 20 MG PO DAILY Ipratropium-Albuterol (Combivent Respimat), 1 PUFFS INH QID Levothyroxine Sodium (Levothyroxine Sodium), 75 MCG PO 3XWK Levothyroxine Sodium (Levothyroxine Sodium), 50 MCG PO 4XWK Metoprolol Tartrate (Lopressor) (Lopressor), 100 MG PO BID Potassium Chloride Microencaps (Potassium Chloride Er), 20 MEQ PO BID Simvastatin (Zocor), 80 MG PO QPM Allergies Coded Allergies: Aspirin (Verified Adverse Reaction, Mild, VOMITING, 06/28/17) Physical Exam Vital Signs Date Time Temp Pulse Resp B/P (MAP) Pulse Ox O2 Delivery O2 Flow Rate FiO2 06/28/17 09:57 170/93 06/28/17 08:16 36.7 90 20 185/103 92 Room Air Physical Exam CONSTITUTIONAL/VITAL SIGNS: Reviewed / noted above. GENERAL: Non-toxic in appearance. INTEGUMENTARY: Warm, dry, and [place]. HEAD: Normocephalic. EYES: without scleral icterus or trauma. ENT/OROPHARYNX: clear and moist. LYMPHADENOPATHY/NECK: Is supple without lymphadenopathy or meningismus. RESPIRATORY: Lungs clear and equal. CARDIOVASCULAR: Regular rate and rhythm. GI/ABDOMEN: Soft and nontender. No organomegaly or pulsatile mass. No rebound or guarding. Normal bowel sounds. RECTAL: Guaiac positive light brown stool. EXTREMITIES: Warm and well perfused. BACK: No CVA tenderness. NEUROLOGICAL: Intact without focal deficits. PSYCHIATRIC: normal affect. MUSCULOSKELETAL: Normally developed with good muscle tone. Medical Decision & Procedures ER Provider Diagnostic Interpretation: X ray results and stated below per my interpretation and radiology interpretation. CHEST ONE VIEW PORTABLE HISTORY: EVALUATE GI BLEED COMPARISON: Chest 12/10/2015. FINDINGS: The lungs are clear. Cardiac silhouette is normal in size. No pleural effusions. No pneumothorax. Stable blunting of the right lateral costophrenic sulcus. Mild emphysema. Dextroscoliosis of the thoracolumbar spine. IMPRESSION: No significant change compared to the prior study. No acute process. Electronically signed by: Tima Leon M.D. 06/28/2017 9:00 AM Dictated Date/Time: 06/28/2017 8:56 AM Laboratory Results 06/28/17 09:24 Red Blood Count 4.11, Mean Corpuscular Volume 92.0, Mean Corpuscular Hemoglobin 31.6, Mean Corpuscular Hemoglobin Concent 34.4, Mean Platelet Volume 10.5, Neutrophils (%) (Auto) 67.9, Lymphocytes (%) (Auto) 21.4, Monocytes (%) (Auto) 8.7, Eosinophils (%) (Auto) 1.0, Basophils (%) (Auto) 0.7, Neutrophils # (Auto) 4.77, Lymphocytes # (Auto) 1.50, Monocytes # (Auto) 0.61, Eosinophils # (Auto) 0.07, Basophils # (Auto) 0.05 06/28/17 09:24 Test 06/28/17 09:24 White Blood Count 7.02 K/uL (4.8-10.8) Red Blood Count 4.11 M/uL (4.2-5.4) Hemoglobin 13.0 g/dL (12.0-16.0) Hematocrit 37.8 % (37-47) Mean Corpuscular Volume 92.0 fL (80-100) Mean Corpuscular Hemoglobin 31.6 pg (25-34) Mean Corpuscular Hemoglobin Concent 34.4 g/dl (32-36) Platelet Count 184 K/uL (130-400) Mean Platelet Volume 10.5 fL (7.4-10.4) Neutrophils (%) (Auto) 67.9 % Lymphocytes (%) (Auto) 21.4 % Monocytes (%) (Auto) 8.7 % Eosinophils (%) (Auto) 1.0 % Basophils (%) (Auto) 0.7 % Neutrophils # (Auto) 4.77 K/uL (1.4-6.5) Lymphocytes # (Auto) 1.50 K/uL (1.2-3.4) Monocytes # (Auto) 0.61 K/uL (0.11-0.59) Eosinophils # (Auto) 0.07 K/uL (0-0.5) Basophils # (Auto) 0.05 K/uL (0-0.2) RDW Standard Deviation 42.0 fL (36.4-46.3) RDW Coefficient of Variation 12.5 % (11.5-14.5) Immature Granulocyte % (Auto) 0.3 % Immature Granulocyte # (Auto) 0.02 K/uL (0.00-0.02) Prothrombin Time 10.6 SECONDS (9.0-12.0) Prothromb Time International Ratio 1.0 (0.9-1.1) Activated Partial Thromboplast Time 25.9 SECONDS (21.0-31.0) Partial Thromboplastin Ratio 1.0 Anion Gap 7.0 mmol/L (3-11) Estimated GFR () 74.0 Estimated GFR (Non- 63.8 BUN/Creatinine Ratio 12.5 (10-20) Calcium Level 9.4 mg/dl (8.5-10.1) Total Bilirubin 0.7 mg/dl (0.2-1) Direct Bilirubin 0.2 mg/dl (0-0.2) Aspartate Amino Transf (AST/SGOT) 21 U/L (15-37) Alanine Aminotransferase (ALT/SGPT) 19 U/L (12-78) Alkaline Phosphatase 120 U/L (45-117) Total Creatine Kinase 43 U/L (26-192) Creatine Kinase MB < 0.5 ng/ml (0.5-3.6) Creatine Kinase MB Ratio (0-3.0) Troponin I < 0.015 ng/ml (0-0.045) Total Protein 7.8 gm/dl (6.4-8.2) Albumin 3.5 gm/dl (3.4-5.0) Lipase 850 U/L (73-393) Laboratory results as stated above per my review. ECG Indication: other (rectal bleeding) Rate (beats per minute): 78 Rhythm: normal sinus Findings: no acute ischemic change, no ectopy ED Course 0905: Previous medical records were reviewed. The patient was evaluated in room B5. A complete history and physical examination was performed. 1122: I reevaluated the patient and she is resting comfortably. I discussed the exam findings with her and I discussed the treatment plan. She verbalized complete understanding and agreement. She is ready to go home. Medical Decision Differential diagnosis: Etiologies such as diverticulosis, AVM, coagulopathy, colitis, inflammatory bowel disease, malignancy, Maria D-Fink tear, esophagitis, peptic ulcer disease , variceal bleed, gastritis, epistaxis, fissure, hemorrhoids, as well as others were entertained. This is a 76-year-old female who presents to the ED with a chief complaint of some rectal bleeding. The patient states that at 7 AM she had a watery bowel movement. She states that her checked and it was a small amount of blood. She states that she cannot see and therefore the told her that he saw blood. The patient has no active bleeding on her rectal exam today. She did have a bowel movement that was light brown and nonbloody. It was guaiac positive according to the nurse. My rectal exam revealed a no gross blood, light brown stool and guaiac positive. The patient is scheduled to have a colonoscopy on Monday. She had previously been on Coumadin but this is been held for the past 2 weeks for she was in the hospital for the same thing. The patient denies any other symptoms. She states that she feels fine. Her EKG shows a sinus rhythm. Chest x-ray was negative for acute disease. CBC is normal, complete metabolic panel was normal, troponin was negative. The patient was told the results. She is felt to be stable for discharge and outpatient follow-up. Medication Reconcilliation Current Medication List: was personally reviewed by me Blood Pressure Screening Patient's blood pressure: Elevated blood pressure Blood pressure disposition: Elevated BP felt to be situational, Did not require urgent referral Impression Primary Impression: GI bleed Additional Impression: Guaiac + stool Scribe Attestation The scribe's documentation has been prepared under my direction and personally reviewed by me in its entirety. I confirm that the note above accurately reflects all work, treatment, procedures, and medical decision making performed by me. Departure Information Dispostion Home / Self-Care Referrals Tuyet Arreola M.D. (PCP) Forms HOME CARE DOCUMENTATION FORM, IMPORTANT VISIT INFORMATION, WORK / SCHOOL INSTRUCTIONS Patient Instructions My [facility] Additional Instructions Follow-up with your doctors for recheck and for your colonoscopy on Monday. Follow-up with your doctor for further care and evaluation in 1-2 days. Return to the emergency department for worsening or new symptoms or any concerns. You have been examined and treated today on an emergency basis only. This is not a substitute for, or an effort to provide, complete comprehensive medical care. It is impossible to recognize and treat all injuries or illnesses in a single emergency department visit. It is therefore important that you follow up closely with your doctor. Call as soon as possible for an appointment. Problem Qualifiers
== END 2017-06-28 11:42 | disposition home or self-care (01) ==
LOC: EDBD 08:15 → C.EDB 08:16
DX: K92.2 Gastrointestinal hemorrhage, unspecified (principal); R19.5 Other fecal abnormalities; H54.7 Unspecified visual loss; I10 Essential (primary) hypertension; Z86.711 Personal history of pulmonary embolism; Z87.891 Personal history of nicotine dependence; Z82.49 Family history of ischemic heart disease and other diseases of the circulatory system

== ENCOUNTER → 2017-09-14 | Outpatient (CLI) | payer OTHER ==
[~2017-09-14] MED LIST changes: +IPRA1AER2 INH
[2017-09-14 15:14] LABS: BASO % 0.5 %; BASO ABS # 0.04 K/uL (0-0.2); COMPLETE YES; EOS % 1.3 %; HEMATOCRIT 40.3 % (37-47); IG% 0.1 %; LYMPH % 22.9 %; MEAN CELL VOLUME 92.4 fL (80-100); MEAN CORPUSCULAR HEMOGLOBIN 31.4 pg (25-34); MEAN PLATELET VOLUME 11.1 fL (7.4-10.4); MONO % 10.5 %; NEUT % 64.7 %; PLATELET COUNT 154 K/uL (130-400); RED BLOOD COUNT 4.36 M/uL (4.2-5.4); WHITE BLOOD COUNT 8.29 K/uL (4.8-10.8)
[2017-09-14 15:31] LABS: BLOOD UREA NITROGEN 14 mg/dl (7-18); BUN/CREATININE RATIO 18.2 (10-20); CALCIUM 9.2 mg/dl (8.5-10.1); CARBON DIOXIDE 33 mmol/L (21-32); CHLORIDE 103 mmol/L (98-107); CREATININE 0.77 mg/dl (0.60-1.20); GLUCOSE 93 mg/dl (70-99); POTASSIUM 3.9 mmol/L (3.5-5.1); SODIUM 139 mmol/L (136-145)
[2017-09-14 15:49] LABS: CHOLESTEROL 150 mg/dl (0-200); CHOLESTEROL/HDL RATIO 2.1; HDL CHOLESTEROL 72 mg/dl; LDL CHOLESTEROL CALCULATED 61 mg/dl; TRIGLYCERIDES 85 mg/dl (0-150); VERY LOW DENSITY LIPOPROT CALC 17 mg/dl
== END | disposition home or self-care (01) ==
LOC: C.LAB1850 14:20
PROVIDERS: ATTEND Nurse Practitioner Adult Health
DX: I10 Essential (primary) hypertension (principal); I26.99 Other pulmonary embolism without acute cor pulmonale; Z79.01 Long term (current) use of anticoagulants; E78.00 Pure hypercholesterolemia, unspecified; E03.9 Hypothyroidism, unspecified

== ENCOUNTER 2017-11-18 01:54 | Emergency (ER) | payer OTHER ==
[~2017-11-18] VITALS: Ht 165.1 cm; Wt 63.8 kg
[2017-11-18 01:56] VITALS: TEMP 36.7; Ht 165.1 cm; Wt 63.8 kg
[2017-11-18] MEDS ORDERED: ACETAMINOPHEN 500 MG TAB PO STA (02:03)
--- NOTE | 2017-11-18 02:07 | EMERGENCY ROOM VISIT NOTE ---
History Report prepared by Phillip: Wes Hoyos Under the Supervision of: Dr. Gerson Sharp M.D. First contact with patient: 01:56 Chief Complaint: SHORTNESS OF BREATH Stated Complaint: BACK PAIN/BREATHING DIFFICULTY History of Present Illness The patient is a 77 year old female who presents to the Emergency Room with complaints of constant lower back pain that began yesterday. She rates her discomfort as a 2/10 in severity. She reports that upon movement, she becomes short of breath. The patient states that she has also been experiencing rhinorrhea. She denies abdominal pain, chest pain, taking medication for her pain, and a cough. She reports that she has a history of blood clots in her lungs, which she takes Warfarin for. The patient reports she had a colonoscopy a month ago. Source of History: patient Onset: yesterday Position: back (lower) Symptom Intensity: 2/10 Timing: constant Associated Symptoms: + SOB, No cough, No chest pain, No abdominal pain Review of Systems See HPI for pertinent positives & negatives. A total of 10 systems reviewed and were otherwise negative. Past Medical & Surgical Medical Problems: (1) Blind (2) Coumadin therapy (3) HTN (hypertension) (4) Lower GI bleed (5) PE (6) Skin problems Surgical Problems: (1) H/O breast surgery (2) H/O: hysterectomy (3) History of appendectomy (4) History of hip surgery Family History Heart disease Hypertension Lung disease Social History Smoking Status: Former Smoker Alcohol Use: none Marital Status: Housing Status: lives with family Occupation Status: unemployed Current/Historical Medications Scheduled Clonidine HCl (Clonidine HCl), 0.2 MG PO Q12 Furosemide (Lasix), 40 MG PO DAILY Levothyroxine Sodium (Levothyroxine Sodium), 75 MCG PO 3XWK Levothyroxine Sodium (Levothyroxine Sodium), 50 MCG PO 4XWK Metoprolol Tartrate (Lopressor) (Lopressor), 100 MG PO BID Potassium Chloride (Potassium Chloride ER), 20 MEQ PO BID Simvastatin (Zocor), 80 MG PO QPM Warfarin Sod (Coumadin), 1 MG PO 3XWK Warfarin Sod (Coumadin), 0.5 MG PO 4XWK Allergies Coded Allergies: Aspirin (Verified Adverse Reaction, Mild, VOMITING, 06/28/17) Physical Exam Vital Signs Date Time Temp Pulse Resp B/P (MAP) Pulse Ox O2 Delivery O2 Flow Rate FiO2 11/18/17 05:10 77 20 130/78 95 11/18/17 04:07 78 20 139/79 93 Room Air 11/18/17 03:14 81 20 164/100 95 Room Air 11/18/17 01:56 36.7 89 20 171/105 95 Room Air Physical Exam GENERAL: Patient is elderly, well appearing and in mild distress. HEENT: No acute trauma, normocephalic atraumatic, mucous membranes moist, no nasal congestion, no scleral icterus, mild runny nose. NECK: No stridor, no adenopathy, no meningismus, trachea is midline. LUNGS: No dyspnea. Clear to auscultation and equal bilaterally. No wheeze, no rhonchi. HEART: Regular rate and rhythm. No murmurs, rubs, gallops appreciated. ABDOMEN: Soft, nontender, bowel sounds positive, no masses appreciated, no peritonitis. BACK: Sever kyphoscoliosis. No midline tenderness, Vague tenderness of bilateral lower perispinal muscle, no CVA tenderness EXTREMITIES: Normal motion all extremities, no cyanosis, no edema. NEUROLOGIC: Alert and oriented, no acute motor or sensory deficits, no focal weakness, cranial nerves grossly intact. SKIN: No rash, no jaundice, no diaphoresis. Medical Decision & Procedures ER Provider Diagnostic Interpretation: Radiology results and stated below per my interpretation: Lumbar spine 3 view Severe scoliosis with mild compressions throughout. Severe osteoarthritic changes. CHEST 2 VIEW Severe scoliosis/kyphosis. No infiltrate or effusion STAT RAD reviewed by me: CT ABDOMEN & PELVIS With Contrast: Limited by artifact and suboptimal positioning. Axial images only. There is an indeterminate linear density in the distal colon image 53/2. Foreign body not excluded. Distal colon is decompressed. There is fecal distention of the more proximal colon which may represent findings of constipation. No bowel obstruction. Appendix is not identified with confidence. Volume averaging in the pericecal region limits evaluation. Left renal cyst, dilatation of portion of pancreatic duct, postoperative changes right hip and other nonemergent/incidental findings. CT L SPINE: Endplate deformities. These are seen at lower T-spine and L-spine to varying degrees except for L2. May be degenerative though compression deformities of uncertain acuity not excluded. If compression deformities are present, favor these are chronic. No retropulsion Degenerative changes. Scoliosis. Radiologist: Conrad Acosta M.D. Laboratory Results 11/18/17 02:10 Red Blood Count 4.42, Mean Corpuscular Volume 91.0, Mean Corpuscular Hemoglobin 31.4, Mean Corpuscular Hemoglobin Concent 34.6, Mean Platelet Volume 10.6, Neutrophils (%) (Auto) 75.7, Lymphocytes (%) (Auto) 13.4, Monocytes (%) (Auto) 9.3, Eosinophils (%) (Auto) 0.9, Basophils (%) (Auto) 0.4, Neutrophils # (Auto) 8.01, Lymphocytes # (Auto) 1.41, Monocytes # (Auto) 0.98, Eosinophils # (Auto) 0.09, Basophils # (Auto) 0.04 11/18/17 02:10 Test 11/18/17 02:10 11/18/17 02:15 11/18/17 03:05 White Blood Count 10.56 K/uL (4.8-10.8) Red Blood Count 4.42 M/uL (4.2-5.4) Hemoglobin 13.9 g/dL (12.0-16.0) Hematocrit 40.2 % (37-47) Mean Corpuscular Volume 91.0 fL (80-100) Mean Corpuscular Hemoglobin 31.4 pg (25-34) Mean Corpuscular Hemoglobin Concent 34.6 g/dl (32-36) Platelet Count 164 K/uL (130-400) Mean Platelet Volume 10.6 fL (7.4-10.4) Neutrophils (%) (Auto) 75.7 % Lymphocytes (%) (Auto) 13.4 % Monocytes (%) (Auto) 9.3 % Eosinophils (%) (Auto) 0.9 % Basophils (%) (Auto) 0.4 % Neutrophils # (Auto) 8.01 K/uL (1.4-6.5) Lymphocytes # (Auto) 1.41 K/uL (1.2-3.4) Monocytes # (Auto) 0.98 K/uL (0.11-0.59) Eosinophils # (Auto) 0.09 K/uL (0-0.5) Basophils # (Auto) 0.04 K/uL (0-0.2) RDW Standard Deviation 41.0 fL (36.4-46.3) RDW Coefficient of Variation 12.3 % (11.5-14.5) Immature Granulocyte % (Auto) 0.3 % Immature Granulocyte # (Auto) 0.03 K/uL (0.00-0.02) Prothrombin Time 29.0 SECONDS (9.0-12.0) Prothromb Time International Ratio 2.8 (0.9-1.1) Activated Partial Thromboplast Time 38.5 SECONDS (21.0-31.0) Partial Thromboplastin Ratio 1.5 Anion Gap 7.0 mmol/L (3-11) Est Creatinine Clear Calc Drug Dose 43.7 ml/min Estimated GFR () 63.8 Estimated GFR (Non- 55.1 BUN/Creatinine Ratio 18.3 (10-20) Calcium Level 9.3 mg/dl (8.5-10.1) Troponin I < 0.015 ng/ml (0-0.045) Influenza Type A Antigen Neg for Influ A (NEG) Influenza Type B Antigen Neg for Influ B (NEG) Urine Color YELLOW Urine Appearance CLEAR (CLEAR) Urine pH 5.0 (4.5-7.5) Urine Specific [place] 1.017 (1.000-1.030) Urine Protein NEG (NEG) Urine Glucose (UA) NEG (NEG) Urine Ketones NEG (NEG) Urine Occult Blood 1+ (NEG) Urine Nitrite NEG (NEG) Urine Bilirubin NEG (NEG) Urine Urobilinogen NEG (NEG) Urine Leukocyte Esterase NEG (NEG) Urine WBC (Auto) 1-5 /hpf (0-5) Urine RBC (Auto) 0-4 /hpf (0-4) Urine Hyaline Casts (Auto) 1-5 /lpf (0-5) Urine Epithelial Cells (Auto) 5-10 /lpf (0-5) Urine Bacteria (Auto) NEG (NEG) Laboratory results as reviewed by me. Medications Administered Medications (Trade) Dose Ordered Sig/Dominique Route Start Time Stop Time Status Last Admin Dose Admin Acetaminophen (Tylenol Tab) 1,000 mg NOW STAT PO 11/18/17 02:03 11/18/17 02:05 DC 11/18/17 02:18 1,000 MG ECG Per My Interpretation Indication: SOB/dyspnea Rate (beats per minute): 81 Findings: no acute ischemic change, no ectopy, other (Normal QTC of 429) ED Course 0158: The patient was evaluated in room B03B. A complete history and physical exam was performed. 0315: I reevaluated the patient and her is now in the room. He states the pain started yesterday and worsened over the last 48 hours. He states the patient usually sits for long amounts of time does not complain of back pain. Medical Decision Elderly appearing 77 yr old female with severe kyphoscoliosis arrives for evaluation of worsening low back pain over last 48 hours which her relates to her having been sitting for too long one day. Also notes mild shob/ runny nose. Flu negative, lung clear and CXR clear thus I feel this is likely viral URI. With therapeutic INR I do not feel this is PE. No evidence this was ACS related as EKG OK as well. UA clear. Lumbar xrays poor and with coumadin use and sudden onset low back pain felt ct reasonable. Constipation noted and arthritic changes in lumbar spine. No acute findings. Suspect this is lumbar strain/pain from her severe arthritic issues. She had resolution of pain with Tylenol which I have advised she continue at home as needed. I have stressed follow up with PCP in next few days. Patient and note that constipation is normal for patient and without abdominal pain/vomiting I do not feel that laxative necessary at this time. Both she and happy with this plan. Medication Reconcilliation Current Medication List: was personally reviewed by me Blood Pressure Screening Patient's blood pressure: Elevated blood pressure Impression Primary Impression: Acute low back pain Additional Impressions: Constipation Shortness of breath Scribe Attestation The scribe's documentation has been prepared under my direction and personally reviewed by me in its entirety. I confirm that the note above accurately reflects all work, treatment, procedures, and medical decision making performed by me. Departure Information Dispostion Home / Self-Care Referrals Yoli Zhang CRNP (PCP) Patient Instructions My [facility] Additional Instructions Rest though avoid sitting in one position for long periods of time. Avoid falls, injuries, trauma. Use Tylenol as needed for discomfort. If severe worsening of pain, weakness in legs, or loss of bowel/bladder control , return for further evaluation. Monitor for worsening cough, difficulty breathing, fevers, or other concerns as well and return or call 911 if these develop. Follow up with your primary provider in the next few days for repeat evaluation. We are always here to help. Problem Qualifiers
[2017-11-18 02:19] LABS: BASO % 0.4 %; BASO ABS # 0.04 K/uL (0-0.2); EOS % 0.9 %; EOS ABS # 0.09 K/uL (0-0.5); HEMATOCRIT 40.2 % (37-47); HEMOGLOBIN 13.9 g/dL (12.0-16.0); IG# 0.03 K/uL (0.00-0.02); LYMPH % 13.4 %; LYMPH ABS # 1.41 K/uL (1.2-3.4); MEAN CORPUSCULAR HEMOGLOBIN 31.4 pg (25-34); MEAN CORPUSCULAR HGB CONC 34.6 g/dl (32-36); MEAN PLATELET VOLUME 10.6 fL (7.4-10.4); MONO % 9.3 %; MONO ABS # 0.98 K/uL (0.11-0.59); NEUT % 75.7 %; NEUT ABS # 8.01 K/uL (1.4-6.5); PLATELET COUNT 164 K/uL (130-400); RED CELL DISTRIBUTION WIDTH CV 12.3 % (11.5-14.5); WHITE BLOOD COUNT 10.56 K/uL (4.8-10.8)
[2017-11-18] MEDS ORDERED: FRS/40 PO (02:20)
[2017-11-18] MEDS ORDERED: MCRK/20 PO (02:26)
[2017-11-18] MEDS ORDERED: CMD1 PO ×2 (02:28→02:30)
[2017-11-18 02:29] LABS: INR 2.8 (0.9-1.1); PTT PATIENT 38.5 SECONDS (21.0-31.0)
[2017-11-18 02:37] LABS: BLOOD UREA NITROGEN 18 mg/dl (7-18); CALCIUM 9.3 mg/dl (8.5-10.1); CARBON DIOXIDE 30 mmol/L (21-32); GLUCOSE 109 mg/dl (70-99); SODIUM 137 mmol/L (136-145)
[2017-11-18 03:14] LABS: INFLUENZA B ANTIGEN Neg for Influ B (NEG)
[2017-11-18] MEDS ORDERED: OPTIRAY 320 IV PRN (03:30)
[2017-11-18 05:10] VITALS: BP 130/78; PULSE 77; O2SAT 95
--- NOTE | 2017-11-18 07:33 | DIAGNOSTIC IMAGING REPORT ---
LUMBAR SPINE WITHOUT CLINICAL HISTORY: 77 years-old Female presenting with severe scoliosis with acute low back pain. TECHNIQUE: Multidetector CT of the lumbar spine was performed without the use of intravenous contrast. IV contrast: None. A dose lowering technique was used consistent with the principles of ALARA (as low as reasonably achievable). COMPARISON: Plain radiograph from 11/18/2017. CT DOSE (mGy.cm): The estimated cumulative dose is 466.85. FINDINGS: Assistant Manager Trainee topogram: Intramedullary nail fixation of the right femoral neck and proximal metadiaphysis with interlocking screw. Osteopenia. Dextroscoliotic curvature centered at L2. Otherwise normal lumbar lordosis. Mild endplate concavity is diffusely likely consequence of osteoporosis. More anterior wedging deformity of L1 with approximately 25% height loss anteriorly. Multilevel degenerative changes are evident with vacuum disc phenomenon and mild disc height loss at several levels. Disc bulge suggested at L1-2. Additional disc bulges likely evident to varying degrees at every level. Facet arthropathy most severe in the lower lumbar spine. Neural foraminal narrowing suggested at multiple levels in part due to scoliotic curvature. Evaluation limited by patient body habitus. Paraspinal musculature mildly atrophic. Atherosclerosis noted. Prominent left renal cyst. IMPRESSION: 1. Multilevel neural foraminal narrowing secondary to degenerative change and scoliosis. 2. Osteopenia with endplate deformities characteristic of osteoporosis. Mild anterior wedging deformity of L1 could represent an age-indeterminate compression fracture. Correlate with point tenderness. Electronically signed by: Serge Allen M.D. 11/18/2017 7:32 AM Dictated Date/Time: 11/18/2017 7:13 AM
--- NOTE | 2017-11-18 07:42 | DIAGNOSTIC IMAGING REPORT ---
ABD/PELVIS IV CONTRAST ONLY CLINICAL HISTORY: 77 years-old Female presenting with acute onset low back pain, constipation, on blood thinner. TECHNIQUE: Multidetector CT of the abdomen and pelvis was performed after the administration of intravenous contrast. IV contrast: 93 mL of Optiray 320. A dose lowering technique was used consistent with the principles of ALARA (as low as reasonably achievable). COMPARISON: None. CT DOSE (mGy.cm): The estimated cumulative dose is 466.85 mGy.cm. FINDINGS: Nursery Teacher topogram: Intramedullary fixation of the right femoral neck and proximal metadiaphysis. Lung bases: Lungs and pleural spaces clear. Normal heart size. Coronary artery calcification. No pericardial or pleural effusion. Liver: Normal morphology. No liver lesion. Patent hepatic vasculature. Biliary: No intrahepatic or extrahepatic biliary ductal dilatation. Normal gallbladder. Pancreas: Prominence of the pancreatic duct in the tail, with dilatation of terminating in a subcentimeter cystic lesion (series 3 image 132). Overall parenchyma mildly atrophic. Spleen: Normal. Adrenal glands: Normal. Kidneys and ureters: Prominent simple appearing upper pole cyst in the left kidney. Few additional hypodensities in the. Left kidney to small to characterize but likely cysts. No nephrolithiasis. No hydronephrosis. Limited visualization of the ureters in the mid to distal portions. Bladder: Incompletely evaluated secondary to underdistention. Pelvic organs: Uterus surgically absent. No adnexal masses. Bowel: Linear metallic foreign body in the upper rectum may represent a resolution clip in the setting of recent endoscopy. Marked stool burden in the distended colon from the cecum to the transverse colon. The appendix is not visualized. Fecal material in the distal small bowel. No bowel obstruction. Peritoneal cavity: No free fluid or intraperitoneal gas. Lymph nodes: No enlarged lymph nodes in the abdomen or pelvis. Vasculature: Atherosclerosis of the normal caliber abdominal aorta. IVC patent. Abdominal wall: Normal. Musculoskeletal: Intramedullary nail fixation of the right femoral neck and proximal metadiaphysis. Osteopenia. Degenerative changes of the spine. Anterior wedging deformity of L1. IMPRESSION: 1. Findings consistent with constipation. 2. No acute intra-abdominal pathology. 3. Subcentimeter cystic lesions suggested in the pancreatic tail with pancreatic duct dilatation in the tail. This may represent an intraductal papillary mucinous neoplasm or mucinous cyst. This could be further evaluated with dedicated cross-sectional imaging of the pancreas are nonurgent basis of clinically indicated. 4. Linear metallic foreign body in the upper rectum may represent a resolution clip in the setting of recent endoscopy. Correlate with history. Electronically signed by: Serge Allen M.D. 11/18/2017 7:41 AM Dictated Date/Time: 11/18/2017 7:32 AM
--- NOTE | 2017-11-18 07:43 | DIAGNOSTIC IMAGING REPORT ---
CHEST 2 VIEWS ROUTINE CLINICAL HISTORY: 77 years-old Female presenting with cough, shob. TECHNIQUE: Portable upright AP view of the chest was obtained. COMPARISON: 06/28/2017. FINDINGS: The patient is [place] rotated. Atherosclerosis of the aortic arch. Cardiac silhouette normal in size. Heterogeneity of lung parenchyma. Persistent elevation of the hemidiaphragms. No new focal infiltrate. No large effusion or pneumothorax. Osteopenia suspected. Scoliotic curvature of the spine. Gaseous distention of the splenic flexure. IMPRESSION: 1. No acute cardiopulmonary disease. Electronically signed by: Serge Allen M.D. 11/18/2017 7:42 AM Dictated Date/Time: 11/18/2017 7:41 AM
--- NOTE | 2017-11-18 07:45 | DIAGNOSTIC IMAGING REPORT ---
LUMBAR SPINE 2 OR 3 VIEWS CLINICAL HISTORY: 77 years-old Female presenting with low back pain. TECHNIQUE: Frontal, lateral, and coned in lateral views of the lumbar spine were obtained. COMPARISON: Correlation made to subsequently performed CT of the lumbar spine. FINDINGS: Osteopenia. DEXA scoliotic curvature centered at L2. Otherwise normal lumbar lordosis. Multiple endplate concavity is consistent with osteoporosis. Mild anterior wedging deformity suggested at L1. Vertebral bodies are better assessed on cross-sectional imaging given the severe degree of osteopenia. Multilevel degenerative changes also noted. Resolution clip projects over the pelvis. Marked stool burden. Partially visualized intramedullary nail fixation in the right femoral neck and proximal metadiaphysis. IMPRESSION: 1. Multilevel degenerative changes with scoliosis. 2. Severe osteopenia with osteoporotic deformities. 3. Anterior wedging deformity of L1, age-indeterminate compression fracture. Correlate with point tenderness. Electronically signed by: Serge Allen M.D. 11/18/2017 7:44 AM Dictated Date/Time: 11/18/2017 7:42 AM
== END 2017-11-18 05:25 | disposition home or self-care (01) ==
LOC: EDBD 01:54 → C.EDB 01:55
DX: M41.9 Scoliosis, unspecified (principal); M46.96 Unspecified inflammatory spondylopathy, lumbar region; J34.89 Other specified disorders of nose and nasal sinuses; R06.02 Shortness of breath; K59.00 Constipation, unspecified; I10 Essential (primary) hypertension; Z87.891 Personal history of nicotine dependence; Z79.01 Long term (current) use of anticoagulants; Z88.6 Allergy status to analgesic agent; Z86.711 Personal history of pulmonary embolism; Z82.49 Family history of ischemic heart disease and other diseases of the circulatory system; Z83.6 Family history of other diseases of the respiratory system

== ENCOUNTER 2020-07-02 20:30 | Inpatient (IN) ==
[~2020-07-02 20:30] MED LIST changes: -CTP2 PO; -IPRA1AER2 INH; -LEVO25TA5 PO; -LSX40 PO; -METO100T14 PO; -POTA20TA13 PO; +RAPID SEQUENCE INDUCTION BAG ONE; -SIMV80TA2 PO
[2020-07-02] MEDS ORDERED: DEXAMETHASONE SOD INJ 10 MG/ML VIAL IV ONE (20:35)
[2020-07-02] MEDS ORDERED: ALBUT/IPRATROP 3MG/0.5MG NEB 3 ML VIAL NEB STA (20:35)
--- NOTE | 2020-07-02 21:28 | Emergency Department Note ---
Impression & Plan Respiratory failure, Pneumonia, Acute respiratory acidosis ED Provider Note NAME: MICHAEL IRWIN AGE: 79 SEX: F : 1940 ARRIVES VIA: Ambulance INFORMANT: Patient, prehospital personnel ED PROVIDER(S): Nemesio Ricci DO CHIEF COMPLAINT: Difficulty breathing HPI: The patient is a 79-year-old female who presented to the emergency department for an evaluation of difficulty breathing. The patient has been having difficulty breathing throughout the last 24 hours. History was obtained from the the prehospital personnel. The patient was found to have significant hypoxia prior to arrival. She is had a cough which is not been productive. The patient has a history of pulmonary embolism and is on oral anticoagulants. She also has a history of severe kyphoscoliosis and has severe restrictive lung disease. She states that she has had no falls recently. She has had no fever but does have a nonproductive cough. The patient has no lower extremity edema worse than usual. She denies having any abdominal pain or vomiting. The patient was placed on supplemental oxygen prior to arrival with only minimal improvement of her symptoms. ROS: See above HPI for pertinent positives & negatives. A total of 10 systems reviewed and were otherwise negative. PAST MEDICAL HISTORY: See Below PAST SURGICAL HISTORY: See Below FAMILY HISTORY: See Below SOCIAL HISTORY: See Below HOME MEDICATIONS: See Below ALLERGIES: See Below VITALS: See Below PHYSICAL EXAMINATION: GENERAL: The patient is listless and slow to respond to questions. She appears to be in extremis. EYES: The conjunctivae are clear. The pupils are round and reactive. EARS, NOSE, MOUTH AND THROAT: The nose is without any evidence of any deformity. NECK: The neck is nontender and supple. RESPIRATORY: Shallow and ineffective respirations were noted. Scattered rhonchi were noted throughout. Retractions were noted. CARDIOVASCULAR: Regular rate and rhythm noted there no murmurs rubs or gallops normal S1 normal S2. GASTROINTESTINAL: The abdomen is soft. Abdomen is nontender. BACK: Severe kyphoscoliosis was noted. MUSCULOSKELETAL/EXTREMITIES: There is no evidence of gross deformity full range of motion is noted in the hips and shoulders. SKIN: Pedal edema was noted bilaterally with venous stasis changes. NEUROLOGIC: The patient is listless but does respond to some questioning. She follows commands slowly. MEDICAL DECISION MAKING: The patient is a 79-year-old female who presented to the emergency department by ambulance for shortness of breath. The patient has had ongoing shortness of breath symptoms over the last 24 hours. She started to become lethargic and her significant other called 911 this evening. The patient was found to have significant hypoxia as well as respiratory distress prior to arrival. She was treated with supplemental oxygen bronchodilator therapy high flow nasal cannula and steroids. She was also switched over to BiPAP. I discussed the patient's laboratory and radiographic studies with her. I also discussed her case with the [facility] hospitalist. He is agreed to evaluate the patient in the emergency department for further management and disposition. I discussed the patient's condition with her daughter, Leeanne. She is aware of how ill the patient is. I was unable to discuss the patient's condition with her significant other, Sheldon. At this time the patient's daughter states that she is a full code and would want all necessary treatments. I did discuss how ill her mother is and that she may progress to requiring intubation. The patient does have a history of pulmonary embolism. At this time her INR is therapeutic. Triage Nursing notes reviewed. Prior medical records reviewed Vital Signs: reviewed and remarkable for hypoxia, tachypnea. Differential diagnosis: Reactive airway disease, pneumonia, pneumothorax, COPD, CHF, infections, cardiac ischemia, pulmonary embolism, musculoskeletal, gastrointestinal, as well as other pathologies. ER treatment provided: See below Diagnostics interpreted by me: ECG: EKG was obtained in the emergency department. My interpretation is normal sinus rhythm at 77 bpm. There is no ectopy. There is no acute ST segment abnormalities noted. Cardiac Monitoring: An order was placed for continuous cardiac monitoring. The monitor shows a rate of 82 bpm with sinus rhythm. Laboratory studies: As stated above and show below. Imaging studies: See below Consultation(s): [id number]: I discussed this case with Dr. Elliott. ED COURSE: Procedures: none PDMP:reviewed and no issues Critical Care: I have personally spent greater than 60 minutes of critical care time in the direct management of this patient. This includes bedside care, interpretation of diagnostic studies, and testing, discussion with consultants, patient, and family members, and other required patient management activities. This 60 minutes is in excess of all separately billable procedures. Past Med/Surg History Medical History Blind HTN (hypertension) Hypertension Lower GI bleed Surgical History H/O breast surgery H/O: hysterectomy History of appendectomy History of hip surgery Social History Smoking Status: Unknown if ever smoked Visual Impairment: Blindness Feels Safe at Home: Yes Allergies Allergies Allergy/AdvReac Type Severity Reaction Status Date / Time ibuprofen [From Advil] Allergy Unknown Verified 06/20/19 11:44 aspirin AdvReac Mild VOMITING Verified 06/20/19 11:44 Home Meds Previous Rx's Medication Instructions Recorded furosemide 40 mg tablet 40 mg PO DAILY #90 tab 07/18/19 metoprolol tartrate 100 mg tablet 100 mg PO BID #180 tab 07/18/19 potassium chloride 20 mEq 40 meq PO DAILY #180 tab 07/18/19 tablet,extended release(part/cryst) simvastatin 80 mg tablet 80 mg PO HS #90 tab 07/18/19 warfarin 1 mg tablet 1 mg PO UD #60 tab 07/18/19 clonidine HCl 0.2 mg tablet 0.2 mg PO Q12H #180 tab 05/26/20 levothyroxine 25 mcg tablet See Rx Instructions PO DIRECTED 06/29/20 #240 tab Results & Data (ED) Vital Signs Vital Signs - 24 hr 07/02/20 20:44 07/02/20 20:46 07/02/20 20:49 Temperature Temperature Source Pulse Rate 96 H 95 H 95 H Pulse Rate [Apical] Pulse Rate from SpO2 Sensor 95 H 95 H Pulse Rhythm Regular Respiratory Rate 35 H Respiratory Effort / Characteristics Spontaneous Short of Breath Respiratory Depth Shallow Respiratory Pattern Tachypnea Blood Pressure 150/80 H 155/80 H Blood Pressure Mean 103 97 Blood Pressure Position Sitting Pulse Oximetry 95 95 95 Oxygen Delivery Method Non-rebreather Non-rebreather Oxygen Flow Rate 15 15 Fraction of Inspired Oxygen Sepsis Recent Fever Within 48 Hours No Sepsis New/Unexplained Change in Mental Status Yes Sepsis Action Taken by Nursing MD Previously Notified Oxygen Flow Rate - Titration Fraction of Inspired Oxygen - Titration Pulse Oximetry Post Tiitration 07/02/20 20:50 07/02/20 20:59 07/02/20 21:00 Temperature Temperature Source Pulse Rate 94 H Pulse Rate [Apical] 97 H Pulse Rate from SpO2 Sensor 94 H Pulse Rhythm Respiratory Rate 20 Respiratory Effort / Characteristics Spontaneous Respiratory Depth Respiratory Pattern Blood Pressure 140/77 Blood Pressure Mean 92 Blood Pressure Position Pulse Oximetry 94 93 92 Oxygen Delivery Method High Flow Nasal Cannula High Flow Nasal Cannula High Flow Nasal Cannula Oxygen Flow Rate 30 30 30 Fraction of Inspired Oxygen 80 80 80 Sepsis Recent Fever Within 48 Hours Sepsis New/Unexplained Change in Mental Status Sepsis Action Taken by Nursing Oxygen Flow Rate - Titration Fraction of Inspired Oxygen - Titration Pulse Oximetry Post Tiitration 07/02/20 21:13 07/02/20 21:14 07/02/20 21:15 Temperature 36.5 C Temperature Source Oral Pulse Rate 94 H Pulse Rate [Apical] Pulse Rate from SpO2 Sensor 94 H Pulse Rhythm Respiratory Rate 36 H Respiratory Effort / Characteristics Spontaneous Short of Breath Respiratory Depth Respiratory Pattern Blood Pressure 144/74 H Blood Pressure Mean 88 Blood Pressure Position Pulse Oximetry 88 L 88 L Oxygen Delivery Method High Flow Nasal Cannula High Flow Nasal Cannula Oxygen Flow Rate 30 30 Fraction of Inspired Oxygen 80 80 Sepsis Recent Fever Within 48 Hours Sepsis New/Unexplained Change in Mental Status Sepsis Action Taken by Nursing Oxygen Flow Rate - Titration Fraction of Inspired Oxygen - Titration Pulse Oximetry Post Tiitration 07/02/20 21:16 07/02/20 21:30 07/02/20 21:45 Temperature Temperature Source Pulse Rate 93 H 86 84 Pulse Rate [Apical] Pulse Rate from SpO2 Sensor 93 H 87 84 Pulse Rhythm Respiratory Rate 32 H Respiratory Effort / Characteristics Spontaneous Labored Respiratory Depth Respiratory Pattern Blood Pressure 126/95 126/60 Blood Pressure Mean 101 75 Blood Pressure Position Pulse Oximetry 88 L 92 94 Oxygen Delivery Method High Flow Nasal Cannula High Flow Nasal Cannula Oxygen Flow Rate 40 40 Fraction of Inspired Oxygen 100 100 Sepsis Recent Fever Within 48 Hours Sepsis New/Unexplained Change in Mental Status Sepsis Action Taken by Nursing Oxygen Flow Rate - Titration 40 Fraction of Inspired Oxygen - Titration 100 Pulse Oximetry Post Tiitration 92 07/02/20 22:00 07/02/20 22:01 07/02/20 22:15 Temperature Temperature Source Pulse Rate 77 77 74 Pulse Rate [Apical] Pulse Rate from SpO2 Sensor 77 77 74 Pulse Rhythm Respiratory Rate 26 H Respiratory Effort / Characteristics Non-Labored Spontaneous Respiratory Depth Respiratory Pattern Blood Pressure 110/47 L 86/63 L Blood Pressure Mean 70 69 Blood Pressure Position Pulse Oximetry 96 96 96 Oxygen Delivery Method High Flow Nasal Cannula High Flow Nasal Cannula High Flow Nasal Cannula Oxygen Flow Rate 40 40 40 Fraction of Inspired Oxygen 100 100 100 Sepsis Recent Fever Within 48 Hours Sepsis New/Unexplained Change in Mental Status Sepsis Action Taken by Nursing Oxygen Flow Rate - Titration Fraction of Inspired Oxygen - Titration Pulse Oximetry Post Tiitration 07/02/20 22:20 07/02/20 22:21 Temperature Temperature Source Pulse Rate 81 Pulse Rate [Apical] Pulse Rate from SpO2 Sensor 81 Pulse Rhythm Respiratory Rate 28 H Respiratory Effort / Characteristics Non-Labored Spontaneous Respiratory Depth Respiratory Pattern Blood Pressure 121/62 Blood Pressure Mean 64 Blood Pressure Position Pulse Oximetry 96 97 Oxygen Delivery Method High Flow Nasal Cannula High Flow Nasal Cannula Oxygen Flow Rate 40 40 Fraction of Inspired Oxygen 100 100 Sepsis Recent Fever Within 48 Hours Sepsis New/Unexplained Change in Mental Status Sepsis Action Taken by Nursing Oxygen Flow Rate - Titration Fraction of Inspired Oxygen - Titration Pulse Oximetry Post Tiitration Home Medications Current Medication List: was personally reviewed by me Laboratory Data Attestation: I reviewed the patient's lab results. Result diagrams: 07/02/20 21:24 07/02/20 21:24 Lab Results 07/02/20 07/02/20 07/02/20 Range/Units 20:45 20:45 20:45 WBC (4.8-10.8) K/uL RBC (4.2-5.4) M/uL Hgb (12.0-16.0) g/dL Hct (37-47) % MCV (80-100) fL MCH (25-34) pg MCHC (32-36) g/dL RDW Std Deviation (36.4-46.3) fL RDW Coeff of Kwadwo (11.5-14.5) % Plt Count (130-400) K/uL MPV (7.4-10.4) fL Immature Gran % (Auto) % Neut % (Auto) % Lymph % (Auto) % Bacon % (Auto) % Eos % (Auto) % Baso % (Auto) % Neut # (Auto) (1.4-6.5) K/uL Lymph # (Auto) (1.2-3.4) K/uL Bacon # (Auto) (0.11-0.59) K/uL Eos # (Auto) (0-0.5) K/uL Baso # (Auto) (0-0.2) K/uL Immature Gran # (Auto) (0.00-0.02) K/uL ESR (0-21) mm/hr PT (9.0-12.0) Seconds INR (0.9-1.1) APTT (21.0-31.0) Seconds PTT Ratio VBG pH (7.36-7.41) VBG pCO2 (38-50) mmHg VBG pO2 mmHg VBG HCO3 mmol/L VBG O2 Saturation % VBG Base Excess mEq/L Barometric Pressure mm/Hg Sodium (136-145) mmol/L Potassium (3.5-5.1) mmol/L Chloride (98-107) mmol/L Carbon Dioxide (21-32) mmol/L Anion Gap (3-11) BUN (7-18) mg/dl Creatinine (0.6-1.2) mg/dl Est Cr Clr Drug Dosing Est GFR ( Amer) Est GFR (Non-Af Amer) BUN/Creatinine Ratio (10-20) Glucose (70-99) mg/dl Lactate (0.4-2.0) mmol/L Calcium (8.5-10.1) mg/dl Magnesium (1.8-2.4) mg/dl Total Bilirubin (0.2-1) mg/dl AST (15-37) U/L ALT (12-78) U/L Alkaline Phosphatase (45-117) U/L Troponin I (0-0.045) ng/ml C-Reactive Protein (0-0.29) mg/dl Total Protein (6.4-8.2) gm/dl Albumin (3.4-5.0) gm/dl Globulin (2.5-4.0) gm/dl Albumin/Globulin Ratio (0.9-2) Procalcitonin (0-0.5) ng/ml COVID-19 Eval Order Covid19 Done at [facility] COVID-19 PCR NEGATIVE (Negative) Influ A Molecular Assay Negative (Negative) Influ B Molecular Assay Negative (Negative) 07/02/20 07/02/20 07/02/20 Range/Units 21:24 21:24 21:24 WBC (4.8-10.8) K/uL RBC (4.2-5.4) M/uL Hgb (12.0-16.0) g/dL Hct (37-47) % MCV (80-100) fL MCH (25-34) pg MCHC (32-36) g/dL RDW Std Deviation (36.4-46.3) fL RDW Coeff of Kwadwo (11.5-14.5) % Plt Count (130-400) K/uL MPV (7.4-10.4) fL Immature Gran % (Auto) % Neut % (Auto) % Lymph % (Auto) % Bacon % (Auto) % Eos % (Auto) % Baso % (Auto) % Neut # (Auto) (1.4-6.5) K/uL Lymph # (Auto) (1.2-3.4) K/uL Bacon # (Auto) (0.11-0.59) K/uL Eos # (Auto) (0-0.5) K/uL Baso # (Auto) (0-0.2) K/uL Immature Gran # (Auto) (0.00-0.02) K/uL ESR 34 H (0-21) mm/hr PT (9.0-12.0) Seconds INR (0.9-1.1) APTT (21.0-31.0) Seconds PTT Ratio VBG pH (7.36-7.41) VBG pCO2 (38-50) mmHg VBG pO2 mmHg VBG HCO3 mmol/L VBG O2 Saturation % VBG Base Excess mEq/L Barometric Pressure mm/Hg Sodium 134 L (136-145) mmol/L Potassium 4.6 (3.5-5.1) mmol/L Chloride 98 (98-107) mmol/L Carbon Dioxide 34 H (21-32) mmol/L Anion Gap 2.0 L (3-11) BUN 20 H (7-18) mg/dl Creatinine 1.00 (0.6-1.2) mg/dl Est Cr Clr Drug Dosing Not Reportable Est GFR ( Amer) 62.9 Est GFR (Non-Af Amer) 54.3 BUN/Creatinine Ratio 19.6 (10-20) Glucose 167 H (70-99) mg/dl Lactate (0.4-2.0) mmol/L Calcium 10.1 (8.5-10.1) mg/dl Magnesium 2.2 (1.8-2.4) mg/dl Total Bilirubin 0.8 (0.2-1) mg/dl AST 17 (15-37) U/L ALT 19 (12-78) U/L Alkaline Phosphatase 91 (45-117) U/L Troponin I < 0.015 (0-0.045) ng/ml C-Reactive Protein 10.20 H (0-0.29) mg/dl Total Protein 7.1 (6.4-8.2) gm/dl Albumin 3.2 L (3.4-5.0) gm/dl Globulin 3.9 (2.5-4.0) gm/dl Albumin/Globulin Ratio 0.8 L (0.9-2) Procalcitonin 0.18 (0-0.5) ng/ml COVID-19 Eval Order COVID-19 PCR (Negative) Influ A Molecular Assay (Negative) Influ B Molecular Assay (Negative) 07/02/20 07/02/20 07/02/20 Range/Units 21:24 21:24 21:25 WBC 18.02 H (4.8-10.8) K/uL RBC 4.54 (4.2-5.4) M/uL Hgb 14.6 (12.0-16.0) g/dL Hct 44.3 (37-47) % MCV 97.6 (80-100) fL MCH 32.2 (25-34) pg MCHC 33.0 (32-36) g/dL RDW Std Deviation 44.8 (36.4-46.3) fL RDW Coeff of Kwadwo 12.6 (11.5-14.5) % Plt Count 143 (130-400) K/uL MPV 11.8 H (7.4-10.4) fL Immature Gran % (Auto) 0.4 % Neut % (Auto) 88.9 % Lymph % (Auto) 2.8 % Bacon % (Auto) 7.8 % Eos % (Auto) 0.0 % Baso % (Auto) 0.1 % Neut # (Auto) 16.03 H (1.4-6.5) K/uL Lymph # (Auto) 0.50 L (1.2-3.4) K/uL Bacon # (Auto) 1.41 H (0.11-0.59) K/uL Eos # (Auto) 0.00 (0-0.5) K/uL Baso # (Auto) 0.01 (0-0.2) K/uL Immature Gran # (Auto) 0.07 H (0.00-0.02) K/uL ESR (0-21) mm/hr PT 30.8 H (9.0-12.0) Seconds INR 3.1 H (0.9-1.1) APTT 40.4 H (21.0-31.0) Seconds PTT Ratio 1.4 VBG pH 7.13 L (7.36-7.41) VBG pCO2 111 H (38-50) mmHg VBG pO2 31 mmHg VBG HCO3 36 mmol/L VBG O2 Saturation < 60.0 % VBG Base Excess 2.4 mEq/L Barometric Pressure 730.7 mm/Hg Sodium (136-145) mmol/L Potassium (3.5-5.1) mmol/L Chloride (98-107) mmol/L Carbon Dioxide (21-32) mmol/L Anion Gap (3-11) BUN (7-18) mg/dl Creatinine (0.6-1.2) mg/dl Est Cr Clr Drug Dosing Est GFR ( Amer) Est GFR (Non-Af Amer) BUN/Creatinine Ratio (10-20) Glucose (70-99) mg/dl Lactate (0.4-2.0) mmol/L Calcium (8.5-10.1) mg/dl Magnesium (1.8-2.4) mg/dl Total Bilirubin (0.2-1) mg/dl AST (15-37) U/L ALT (12-78) U/L Alkaline Phosphatase (45-117) U/L Troponin I (0-0.045) ng/ml C-Reactive Protein (0-0.29) mg/dl Total Protein (6.4-8.2) gm/dl Albumin (3.4-5.0) gm/dl Globulin (2.5-4.0) gm/dl Albumin/Globulin Ratio (0.9-2) Procalcitonin (0-0.5) ng/ml COVID-19 Eval Order COVID-19 PCR (Negative) Influ A Molecular Assay (Negative) Influ B Molecular Assay (Negative) 07/02/20 Range/Units 21:25 WBC (4.8-10.8) K/uL RBC (4.2-5.4) M/uL Hgb (12.0-16.0) g/dL Hct (37-47) % MCV (80-100) fL MCH (25-34) pg MCHC (32-36) g/dL RDW Std Deviation (36.4-46.3) fL RDW Coeff of Kwadwo (11.5-14.5) % Plt Count (130-400) K/uL MPV (7.4-10.4) fL Immature Gran % (Auto) % Neut % (Auto) % Lymph % (Auto) % Bacon % (Auto) % Eos % (Auto) % Baso % (Auto) % Neut # (Auto) (1.4-6.5) K/uL Lymph # (Auto) (1.2-3.4) K/uL Bacon # (Auto) (0.11-0.59) K/uL Eos # (Auto) (0-0.5) K/uL Baso # (Auto) (0-0.2) K/uL Immature Gran # (Auto) (0.00-0.02) K/uL ESR (0-21) mm/hr PT (9.0-12.0) Seconds INR (0.9-1.1) APTT (21.0-31.0) Seconds PTT Ratio VBG pH (7.36-7.41) VBG pCO2 (38-50) mmHg VBG pO2 mmHg VBG HCO3 mmol/L VBG O2 Saturation % VBG Base Excess mEq/L Barometric Pressure mm/Hg Sodium (136-145) mmol/L Potassium (3.5-5.1) mmol/L Chloride (98-107) mmol/L Carbon Dioxide (21-32) mmol/L Anion Gap (3-11) BUN (7-18) mg/dl Creatinine (0.6-1.2) mg/dl Est Cr Clr Drug Dosing Est GFR ( Amer) Est GFR (Non-Af Amer) BUN/Creatinine Ratio (10-20) Glucose (70-99) mg/dl Lactate 2.0 (0.4-2.0) mmol/L Calcium (8.5-10.1) mg/dl Magnesium (1.8-2.4) mg/dl Total Bilirubin (0.2-1) mg/dl AST (15-37) U/L ALT (12-78) U/L Alkaline Phosphatase (45-117) U/L Troponin I (0-0.045) ng/ml C-Reactive Protein (0-0.29) mg/dl Total Protein (6.4-8.2) gm/dl Albumin (3.4-5.0) gm/dl Globulin (2.5-4.0) gm/dl Albumin/Globulin Ratio (0.9-2) Procalcitonin (0-0.5) ng/ml COVID-19 Eval Order COVID-19 PCR (Negative) Influ A Molecular Assay (Negative) Influ B Molecular Assay (Negative) Administered Medications Sodium Chloride (Nss 1000ml) 1,000 mls @ 999 mls/hr IV .[id number] ONE Stop: 07/02/20 23:23 Last Admin: 07/02/20 22:34 Dose: 999 mls/hr Documented by: [id number] Discontinued Medications Albuterol (Albut/Ipratrop 3mg/0.5mg Neb 3 Ml Vial) 3 ml NEB NOW STA Stop: 07/02/20 20:36 Last Admin: 07/02/20 22:34 Dose: Not Given Documented by: [id number] Dexamethasone (Dexamethasone Sod Inj 10 Mg/Ml Vial) 6 mg IV NOW ONE Stop: 07/02/20 20:36 Last Admin: 07/02/20 21:08 Dose: 6 mg Documented by: [id number] Piperacillin Sod/Tazobactam Sod (Zosyn) 4.5 gm in 120 mls @ 240 mls/hr IV NOW ONE Stop: 07/02/20 22:12 Last Infusion: 07/02/20 22:20 Dose: 0 mls/hr Documented by: [id number] Admin: 07/02/20 21:56 Dose: 240 mls/hr Documented by: [id number] Imaging Data Attestation: I personally reviewed and interpreted this imaging study as follows: My Impression: Chest x-ray was obtained in the emergency department. 1 view of the chest was obtained however multiple views were obtained by the tech given the patient's severe kyphoscoliosis. There are some dilated nonspecific bowel g as noted. No free air was noted. There was a small pleural effusion on the right lower lung field with an infiltrate at the right base. This was compared to a previous chest x-ray. The findings at the right base are new compared to the previous. Blood Pressure Blood Pressure Findings: Normal blood pressure Discharge Plan Visit Data Chief Complaint: Respiratory Problems Stated Complaint: cough, PUI ED Provider: Nemesio Ricci Discharge Problem: Respiratory failure, Pneumonia, Acute respiratory acidosis Patient Disposition: Being Evaluated by Hospitalist Condition: Good Forms Stand Alone Forms: My [facility] Mgv Prescriptions Prescriptions: No Action clonidine HCl 0.2 mg tablet 0.2 mg PO Q12H Qty: 180 RF: 3 levothyroxine 25 mcg tablet See Rx Instructions PO DIRECTED Qty: 240 RF: 3 furosemide 40 mg tablet 40 mg PO DAILY Qty: 90 RF: 3 metoprolol tartrate 100 mg tablet 100 mg PO BID Qty: 180 RF: 3 potassium chloride 20 mEq tablet,ER particles/crystals 40 meq PO DAILY Qty: 180 RF: 3 simvastatin 80 mg tablet 80 mg PO HS Qty: 90 RF: 3 warfarin 1 mg tablet 1 mg PO UD Qty: 60 RF: 3 Referrals Referrals: PCP,NO [Primary Care Provider] - Discharge Problem: Respiratory failure Qualifiers: Chronicity: acute Respiratory failure complication: hypoxia and hypercapnia Qualified Code(s): J96.01 - Acute respiratory failure with hypoxia Pneumonia Qualifiers: Pneumonia type: due to unspecified organism Laterality: right Lung location: lower lobe of lung Qualified Code(s): J18.9 - Pneumonia, unspecified organism
[2020-07-02 21:40] LABS: Base Excess VBG 2.4 mEq/L; HCO3 VBG 36 mmol/L; Oxygen Saturation VBG < 60.0 %; PCO2 VBG 111 mmHg (38-50); PO2 VBG 31 mmHg; pH VBG 7.13 (7.36-7.41)
[2020-07-02] MEDS ORDERED: PIPERACILLIN/TAZOBACTAM 4.5 GM/120 ML BAG IV ONE (21:43)
[2020-07-02] MEDS ORDERED: PIPERACILL/TAZOBAC CONSULT ACTIVE PRN (21:43)
[2020-07-02 21:44] LABS: Influenza A virus by PCR Negative (Negative); Influenza B virus by PCR Negative (Negative)
[2020-07-02 21:47] LABS: Basophils # (auto) 0.01 K/uL (0-0.2); Basophils % (auto) 0.1 %; Hematocrit (blood only) 44.3 % (37-47); Hemoglobin 14.6 g/dL (12.0-16.0); Immature Granulocytes # (auto) 0.07 K/uL (0.00-0.02); Immature Granulocytes % (auto) 0.4 %; Lymphocytes % (auto) 2.8 %; Mean Corpuscular Hemoglobin 32.2 pg (25-34); Mean Corpuscular Volume 97.6 fL (80-100); Mean Platelet Volume 11.8 fL (7.4-10.4); Monocytes # (auto) 1.41 K/uL (0.11-0.59); Monocytes % (auto) 7.8 %; Neutrophils # (auto) 16.03 K/uL (1.4-6.5); Neutrophils % (auto) 88.9 %; Platelet Count 143 K/uL (130-400); RDW Coefficient of Variation 12.6 % (11.5-14.5); RDW Standard Deviation 44.8 fL (36.4-46.3); Red Blood Count 4.54 M/uL (4.2-5.4); White Blood Count 18.02 K/uL (4.8-10.8)
[2020-07-02 21:51] LABS: INR 3.1 (0.9-1.1); Partial Thromboplastin Ratio 1.4; Partial Thromboplastin Time 40.4 Seconds (21.0-31.0); Prothrombin Time 30.8 Seconds (9.0-12.0)
[2020-07-02 21:55] LABS: Alanine Aminotransferase 19 U/L (12-78); Albumin Level 3.2 gm/dl (3.4-5.0); Aspartate Aminotransferase 17 U/L (15-37); BUN Creatinine Ratio 19.6 (10-20); Blood Urea Nitrogen 20 mg/dl (7-18); Calcium 10.1 mg/dl (8.5-10.1); Carbon Dioxide 34 mmol/L (21-32); Chloride 98 mmol/L (98-107); Est GFR (African American) 62.9; Est GFR (Non-African American) 54.3; Glucose 167 mg/dl (70-99); Magnesium 2.2 mg/dl (1.8-2.4); Potassium 4.6 mmol/L (3.5-5.1); Sodium 134 mmol/L (136-145)
[2020-07-02 21:59] LABS: Albumin Globulin Ratio 0.8 (0.9-2); Alkaline Phosphatase 91 U/L (45-117); Bilirubin,Total 0.8 mg/dl (0.2-1); Globulin 3.9 gm/dl (2.5-4.0); Total Protein 7.1 gm/dl (6.4-8.2); Troponin I < 0.015 ng/ml (0-0.045)
[2020-07-02] MEDS ORDERED: SODIUM CHLORIDE 0.9% 1000ML 1,000 ML IV ONE (22:23)
[2020-07-02] MEDS ORDERED: ALBUT/IPRATROP 3MG/0.5MG NEB 3 ML VIAL NEB ONE (22:27)
[2020-07-03] MEDS ORDERED: WARFARIN SOD 1 MG TAB PO SCH (02:36)
[2020-07-03] MEDS ORDERED: ICU PROTOCOL FOR HYPERGLYCEMIA PRN (02:36)
--- NOTE | 2020-07-03 02:47 | Critical Care Consultation ---
Date of Consultation July 03, 2020 Assessment & Plan (1) Admitted to intensive care unit: Reason Critically Ill: 79-year-old female with acute hypoxic respiratory failure with hypercapnia requiring close monitoring and possible need for emergent endotracheal intubation and what appears to be an extremely difficult airway. NEURO - * CAM ICU: NEGATIVE * Encephalopathy: * Likely secondary to CO2 narcosis. * Mentation has improved with BiPAP. CARDIAC/VASCULAR - * Hypertension: * Hold antihypertensives currently. * EKG: NSR@95bpm. No ST/T-wave changes noted. QTc 412ms. * Monitor on telemetry. RESPIRATORY - * Acute hypoxic respiratory failure with hypercapnia resulting in respiratory acidosis: * Likely in the setting of developing pneumonia as well as poor anatomy secondary to impressive kyphosis. * Has improved somewhat with BiPAP. * Will continue to utilize BiPAP. Repeat ABG for assessment for possible need for intubation. * Would recommend refraining from intubation if absolutely possible given patient's complex anatomy secondary to severe kyphosis. * Cover with antibiotics in the form of Zosyn. Will change to cefepime and Flagyl secondary to Zosyn allergy. * Patient is with history of pulmonary embolism, however patient displays no other concerning exam findings including profound tachycardia, profound hypotension, or leak troponin despite current findings. Certainly would consider CTA, however at this point, I do not feel the patient would tolerate laying flat with BiPAP in place. We will consider if patient does not show improvement. Currently anticoagulated on Coumadin at therapeutic levels. GI/NUTRITION - * NPO. * Prophylaxis: Famotidine RENAL/LYTES - * No significant electrolyte derangements * IVF: Hold on IV fluids secondary to concerns for pulmonary edema. * Clinically, patient appears volume overloaded. * Will add IV dose of Lasix. - * Odell in place - Strict I&Os. ENDO - * No history of diabetes or thyroid disease. * BSGs per unit protocol. ISS --> gtt per unit policy. HEME - * Stable H&H. ID - * Pneumonia: * Concerns for possible aspiration with infiltrative changes in the RIGHT lower lobe. * Initially treated with Zosyn. Patient apparently developed rash after receiving medication. Will change to cefepime and Flagyl. * COVID-19 negative LINES/IV ACCESS - * PIVs x2 * Odell DVT PROPHYLAXIS - * Patient currently anticoagulated with Coumadin secondary to prior history of pulmonary emboli. * SCDs I have personally spent 45 minutes of critical care time in the direct management of this patient. This is a life/limb threatening event. This includes time spent evaluating patient, direct bedside care, chart review, placing orders, interpretation of diagnostic studies, discussion with consultants, patient, and family members, as well as other required patient management activities. This time is exclusive of all separately billable procedures, and teaching time and separate from and in addition to any other critical care service time. Thank you for allowing us to participate in the care of this patient. Please refer to my attending physician's documentation for any further recommendations. 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 Patient was reportedly having worsening shortness of breath and decreased level of consciousness over the last 24 hours prompting contact of EMS to bring the patient to the emergency department. Upon arrival, the patient was noted to be severely hypoxic. She was placed on high levels of oxygen and eventually placed on BiPAP. Laboratory assessment concerning for moderate leukocytosis. Chest x-ray, while difficult to interpret secondary to anatomy, demonstrates possible developing pulmonary edema versus infiltrative changes. Patient covered with IV Zosyn in the emergency department. She was placed on BiPAP which did improve oxygenation and per hospitalist, did appear to improve patient's mentation. Upon arrival in the ICU, the patient is awake. She is alert. She answers yes and no questions. She does have some difficulty with breathing, however she is tolerating BiPAP well. History of present illness limited secondary to patient's acuity of illness. Allergies Allergy/AdvReac Type Severity Reaction Status Date / Time ibuprofen [From Advil] Allergy Mild Rash Verified 07/02/20 23:21 piperacillin [From Zosyn] Allergy Mild Rash Verified 07/02/20 23:21 tazobactam [From Zosyn] Allergy Mild Rash Verified 07/02/20 23:21 aspirin AdvReac Mild VOMITING Verified 07/02/20 23:21 Home Medications Home Medications Medication Instructions Recorded Confirmed Type furosemide 40 mg tablet 40 mg PO DAILY #90 tab 07/18/19 07/02/20 Rx metoprolol tartrate 100 mg tablet 100 mg PO BID #180 tab 07/18/19 07/02/20 Rx potassium chloride 20 mEq 40 meq PO DAILY #180 tab 07/18/19 07/02/20 Rx tablet,extended release(part/cryst) simvastatin 80 mg tablet 80 mg PO HS #90 tab 07/18/19 07/02/20 Rx warfarin 1 mg tablet 1 mg PO UD #60 tab 07/18/19 07/02/20 Rx clonidine HCl 0.2 mg tablet 0.2 mg PO Q12H #180 tab 05/26/20 07/02/20 Rx levothyroxine 25 mcg tablet See Rx Instructions PO DIRECTED 06/29/20 07/02/20 Rx #240 tab Patient History Medical History Blind HTN (hypertension) Hypertension Lower GI bleed Surgical History H/O breast surgery H/O: hysterectomy History of appendectomy History of hip surgery Social History Smoking Status: Unknown if ever smoked Preferred Language: Nepalese Communication Ability: Impaired Communication Ability Comment: blind Visual Impairment: Blindness Advisory Internship Required: No Beliefs That Will Affect Care: None Current Living Situation: Spouse Current Living Situation Comment: lives w/ Feels Safe at Home: Yes Assistive Devices: BiPap Review of Systems Review of Systems: A complete 10 point review of systems was reviewed with the patient with pertinent positives and negatives as per history of present illness. All else were negative. Physical Exam Physical Exam: VITAL SIGNS - Vital signs and nursing notes were reviewed. GENERAL - 79-year-old female appearing her stated age who is in mild respiratory distress. Communicates appropriately with yes/no answers. HEAD - NC/AT. EYES - PERRL with EOMI bilaterally. Sclera anicteric. EARS - No deformities of external structures noted on gross examination bilaterally. NOSE - Midline and without cyanosis. No epistaxis or purulent drainage noted. MOUTH/OROPHARYNX - Without perioral cyanosis. Buccal mucosa pink and moist and without leukoplakia. NECK -profound kyphosis. LUNGS -difficult to assess secondary to poor inspiratory effort. CARDIAC - RRR with S1/S2. No murmur, rubs, or gallops appreciated. No reproducible tenderness to palpation appreciated over the anterior chest wall. ABDOMEN - Abdominal contour flat without pulsations or visible masses. BS normoactive all four quadrants. No tenderness, palpable masses, hepatosplenomegaly, or ascites noted. EXTREMITIES - No clubbing or peripheral cyanosis. Moderate pretibial edema present. +3/5 radial and dorsalis pedis pulses palpated throughout. +4/5 strength noted in UE/LE bilaterally. NEUROLOGIC - Cranial nerves II through XII grossly intact. Sensory intact to light touch throughout. PSYCH - A&O and cooperates fully with examiner. Answers yes/no questions appropriately. Results & Data Results & Data ([facility]) Vital Signs (Past 12 Hours) Vital Signs Temp Pulse Pulse Resp BP BP Pulse Ox 07/03/20 02:04 80 22 105/64 96 07/03/20 01:30 78 20 111/58 L 97 07/03/20 01:04 75 20 98/61 L 97 07/03/20 00:39 82 20 108/55 L 96 07/03/20 00:12 88 22 108/72 96 07/02/20 23:34 81 24 117/68 96 07/02/20 22:56 82 24 131/62 96 07/02/20 22:45 84 84 30 H 95 07/02/20 22:43 30 H 94 07/02/20 22:31 84 97 07/02/20 22:30 84 143/70 H 97 07/02/20 22:22 78 97 07/02/20 22:21 81 121/62 97 07/02/20 22:20 28 H 96 07/02/20 22:15 74 86/63 L 96 07/02/20 22:01 77 26 H 110/47 L 96 07/02/20 22:00 77 96 07/02/20 21:45 84 126/60 94 07/02/20 21:30 86 32 H 126/95 92 07/02/20 21:16 93 H 88 L 07/02/20 21:15 94 H 144/74 H 88 L 10/15/20 21:14 36 H 88 L 07/02/20 21:13 36.5 C 07/02/20 21:00 94 H 140/77 92 07/02/20 20:59 93 07/02/20 20:50 97 H 20 94 07/02/20 20:49 95 H 95 07/02/20 20:46 95 H 155/80 H 95 07/02/20 20:44 96 H 35 H 150/80 H 95 Coding Level of Care Code Critical Care 1st 30-74 mins Diagnoses Admitted to intensive care unit Z78.9 Respiratory failure J96.01; J96.02 Chronicity: acute Respiratory failure complication: hypoxia and hypercapnia Hypoxia R09.02 Acute respiratory acidosis E87.2 Pneumonia J18.9 Laterality: right Lung location: lower lobe of lung Pneumonia type: due to unspecified organism [facility] current use of anticoagulants with INR goal of 2.0-3.0 Z79.01 HTN (hypertension) I10 Hypokalemia E87.6 Time Spent (min) 45 (1) Respiratory failure Chronicity: acute Respiratory failure complication: hypoxia and hypercapnia Qualified Code(s): J96.01 - Acute respiratory failure with hypoxia; J96.02 - Acute respiratory failure with hypercapnia (2) Pneumonia Laterality: right Lung location: lower lobe of lung Pneumonia type: due to unspecified organism Qualified Code(s): J18.9 - Pneumonia, unspecified organism
[2020-07-03] MEDS ORDERED: PATIENT'S HEIGHT AND/OR WEIGHT NEEDED SCH (03:00)
[2020-07-03] MEDS ORDERED: FUROSEMIDE 40 MG in SYRINGE 0 ML IV ONE ×2 (03:33→14:00)
[2020-07-03] MEDS: metroNIDAZOLE 500 MG/100 ML BAG IV SCH ×3 (03:50→20:09)
[2020-07-03] MEDS ORDERED: CEFEPIME 2,000 MG in SYRINGE 0 ML IV SCH (04:00)
[2020-07-03] MEDS ORDERED: PIPERACILLIN/TAZOBACTAM 3.375 GM in DEXTROSE 5% 100 ML IV SCH (04:00)
[2020-07-03 04:09] LABS: Appearance Urine Clear (Clear); Bacteria Urine Automated Negative (Negative); Bilirubin Urine Negative (Negative); Blood Urine Negative (Negative); Color Urine Dark Yellow; Glucose Urine UA Negative (Negative); Ketones Urine Negative (Negative); Leukocyte Esterase Urine Negative (Negative); Nitrite Urine Negative (Negative); Protein Urine 1+ (Negative); RBC Urine Automated 0-4 /hpf (0-4); Specific Gravity Urine 1.028 (1.000-1.030); Urobilinogen Urine Negative (Negative)
[2020-07-03 04:35] LABS: Cast Urine Automated >30 /lpf (0-5)
[2020-07-03 04:48] LABS: Basophils # (auto) 0.01 K/uL (0-0.2); Basophils % (auto) 0.1 %; Hematocrit (blood only) 45.5 % (37-47); Hemoglobin 14.7 g/dL (12.0-16.0); Immature Granulocytes % (auto) 0.6 %; Lymphocytes # (auto) 0.42 K/uL (1.2-3.4); Lymphocytes % (auto) 2.7 %; Mean Corpuscular Hemoglobin 31.9 pg (25-34); Mean Corpuscular Hgb Conc 32.3 g/dL (32-36); Mean Corpuscular Volume 98.7 fL (80-100); Mean Platelet Volume 11.9 fL (7.4-10.4); Monocytes # (auto) 0.84 K/uL (0.11-0.59); Monocytes % (auto) 5.4 %; Neutrophils # (auto) 14.18 K/uL (1.4-6.5); Neutrophils % (auto) 91.2 %; Platelet Count 136 K/uL (130-400); RDW Coefficient of Variation 12.8 % (11.5-14.5); RDW Standard Deviation 46.3 fL (36.4-46.3); Red Blood Count 4.61 M/uL (4.2-5.4); White Blood Count 15.55 K/uL (4.8-10.8)
--- NOTE | 2020-07-03 04:55 | History & Physical Report ---
Date of Service July 03, 2020 Assessment & Plan (1) Respiratory failure: 79 year old woman who presents with acute on chronic respiratory failure and severe respiratory acidosis Respiratory Failure From XR appears to be secondary to aspiration vs pneumonia, patient's family are difficult historians, will cover with broad spectrum antibiotics and anaerobe coverage with cefipime and metronidazole Covid negative Patient On Bipap for now, thought to be a difficult intubation secondary to contorted anatomy, If patient is aspirating this could make worse, but given no family history of coughing or choking during drinking or eating and no coughing with us tongiht and presumed difficulty with intubating this patient benefits were thought to outweigh risks in this patient. Will admit to ICU and try to increase ventilation to improve respiratory acidosis Per family patient would like absolutely everything done possible to remain alive Given 40 mg IV lasix and duonebs and 6 mg dexamethasone CAD Continuing metoprolol and simvastatin History of VTE Continuing warfarin therapeutic at present HTN Continuing clonidine DVT PPx: Warfarin F/E/N: NPO Dispo: admit to ICU for close monitoring possible need for intubation if respiratory status does not improve appropriately with BIPAP Full Code (2) Pneumonia: (3) Acute respiratory acidosis: (4) Long-term (current) use of anticoagulants, INR goal 2.5-3.5: (5) Pulmonary embolism: Admission and Anticipated Discharge Date Admission Date: July 03, 2020 History of Present Illness Chief Complaint: Hypoxemic respiratory failure, respiratory acidosis Primary Care Provider: NO PCP Melanie Ospina is a 79 year old woman with a past medical history significant for severe kyphoscoliosis, 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 Patient has been getting short of breath over the course of the last month but it has come to a head today. She has been ambulating on her own with a walker to and from the bathroom her tells me until the afternoon of 07/02. Several family members had been urging him to take her in to be seen due to her concerning breathing but he was resistant because she has trouble getting around and is blind and didn't want to put her through too much. On presentation to ED patient is hypoxic requiring high flow nasal cannula and steroids. An ABG was obtained showing severe respiratory acidosis, ph of 7.1 bicarb of 33 co2 in the 90's. Labwork significant for elevated white count of 15.55, ESR of 34,INR therapeutic at 3.0, potassium elevated to 5.3, CRP of 10.2 BNP of 3546, albumin 3.2. Chest X ray showing right lower lobe infiltrate vs aspiration and what appears to be a large hiatal hernia. Patient was put on BiPap, intubation was discussed but given her anatomy and improvement in mentation on bipap decision was made to continue bipap. Case discussed with ICU who accepted patient. Allergies Allergy/AdvReac Type Severity Reaction Status Date / Time ibuprofen [From Advil] Allergy Mild Rash Verified 07/02/20 23:21 piperacillin [From Zosyn] Allergy Mild Rash Verified 07/02/20 23:21 tazobactam [From Zosyn] Allergy Mild Rash Verified 07/02/20 23:21 aspirin AdvReac Mild VOMITING Verified 07/02/20 23:21 Home Medications Home Medications Medication Instructions Recorded Confirmed Type furosemide 40 mg tablet 40 mg PO DAILY #90 tab 07/18/19 07/02/20 Rx metoprolol tartrate 100 mg tablet 100 mg PO BID #180 tab 07/18/19 07/02/20 Rx potassium chloride 20 mEq 40 meq PO DAILY #180 tab 07/18/19 07/02/20 Rx tablet,extended release(part/cryst) simvastatin 80 mg tablet 80 mg PO HS #90 tab 07/18/19 07/02/20 Rx warfarin 1 mg tablet 1 mg PO UD #60 tab 07/18/19 07/02/20 Rx clonidine HCl 0.2 mg tablet 0.2 mg PO Q12H #180 tab 05/26/20 07/02/20 Rx levothyroxine 25 mcg tablet See Rx Instructions PO DIRECTED 06/29/20 07/02/20 Rx #240 tab Past Med/Surg History Medical History Blind HTN (hypertension) Hypertension Lower GI bleed Surgical History H/O breast surgery H/O: hysterectomy History of appendectomy History of hip surgery Social History Smoking Status: Unknown if ever smoked Preferred Language: Cymro Communication Ability: Unable Communication Ability Comment: blind Visual Impairment: Blindness Dispute Resolution Specialist Required: No Beliefs That Will Affect Care: None Current Living Situation: Spouse Current Living Situation Comment: lives w/ Feels Safe at Home: Yes Assistive Devices: BiPap Review of Systems Review of Systems: All systems reviewed & are unremarkable except as noted in HPI & below and Unobtainable due to cognitive status Physical Exam Constitutional: + acute distress, + ill appearing, + intoxicated appearing, + altered mental status and + physical limitations (Severe kyphoscoliosis) Eyes: PERRL, conjunctivae normal, anicteric sclerae ENMT: external ear and nose normal, oropharynx normal Neck: trachea midline, no thyromegaly Respiratory: + respiratory distress, + labored breathing, + retractions and + uses accessory muscles; + abnormal respiratory effort Auscultation: + breath sounds absent (Particularly right lower lobe but decreased globally), + crackles and + rales; + lungs not clear to auscultation Cardiovascular: Rate/Rhythm: regular rate and regular rhythm Heart Sounds: + murmur Gastrointestinal (Abdomen): normal bowel sounds, soft, nontender, no hepatosplenomegaly Musculoskeletal: no cyanosis or clubbing, extremities motor strength 5/5 Skin: no rashes, warm and dry Neurologic: patellar DTR's 2+ bilat, sensation intact + confused and + obtunded Cranial Nerves: PERRL and EOM intact bilaterally Results & Data Results & Data ([facility]) Vital Signs (Past 12 Hours) Vital Signs Temp Pulse Pulse Resp BP BP Pulse Ox 07/03/20 04:00 97 H 37 H 130/71 95 07/03/20 03:36 99 H 38 H 163/88 H 93 07/03/20 03:01 36.6 C 91 H 36 H 126/91 94 07/03/20 02:35 85 30 H 95 07/03/20 02:04 80 22 105/64 96 07/03/20 01:30 78 20 111/58 L 97 07/03/20 01:04 75 20 98/61 L 97 07/03/20 00:39 82 20 108/55 L 96 07/03/20 00:12 88 22 108/72 96 07/02/20 23:34 81 24 117/68 96 07/02/20 22:56 82 24 131/62 96 07/02/20 22:45 84 84 30 H 95 07/02/20 22:43 30 H 94 07/02/20 22:31 84 97 07/02/20 22:30 84 143/70 H 97 07/02/20 22:22 78 97 07/02/20 22:21 81 121/62 97 07/02/20 22:20 28 H 96 07/02/20 22:15 74 86/63 L 96 07/02/20 22:01 77 26 H 110/47 L 96 07/02/20 22:00 77 96 07/02/20 21:45 84 126/60 94 07/02/20 21:30 86 32 H 126/95 92 07/02/20 21:16 93 H 88 L 07/02/20 21:15 94 H 144/74 H 88 L 07/02/20 21:14 36 H 88 L 07/02/20 21:13 36.5 C 07/02/20 21:00 94 H 140/77 92 07/02/20 20:59 93 07/02/20 20:50 97 H 20 94 07/02/20 20:49 95 H 95 07/02/20 20:46 95 H 155/80 H 95 07/02/20 20:44 96 H 35 H 150/80 H 95 Code Status & VTE Plan VTE Prophylaxis Plan VTE Prophylaxis will be ordered: Yes Critical Care Time Critical Care Time: Yes Total Critical Care Time: 50 Supervising Physician Co-Signing Physician Notes Attending addendum: I have physically seen this patient, have supervised the medical residents activities, and agree with the H&P unless as otherwise noted. Assessment and Plan: Acute respiratory failure with hypoxia and hypercapnia/right lower lobe pneumonia, presumptively aspiration- Admitted to intensive care unit with pH 7.14, PCO2 change on BiPAP from 111-98 and improving PO2. Patient not intubated in ED due to severe kyphotic posture and intubation would likely be very traumatic. In ED patient was given dexamethasone 6 mg IV, furosemide 40 mg IV and DuoNeb's. Placed on vancomycin IV and Zosyn IV per pharmacokinetic monitoring. Duonebs every 4 hours while awake and every 2 hours when necessary. CAD/hypertension- The patient will be admitted to the ICU for serial cardiac enzymes, serial EKG's, cardiac rhythm monitoring and a 2-D echocardiogram with Dopplers. Continue current regimen of clonidine and metoprolol tartrate. History of venous thromboembolism- Subtherapeutic on warfarin. Placed on Lovenox subcu therapeutic for bridge in the interim Hyperlipidemia- Continue simvastatin 80 mg at bedtime. Should consider a change to atorvastatin 40 mg or rosuvastatin 20 mg due to increased side effect potential of simvastatin 80 mg. Hypothyroidism- Continue levothyroxine 25 mcg daily Remaining orders and notations as noted Resident Activity Tracking Resident Involvement: Resident Care Provided Care Provided: Adult Hospital Medicine (1) Respiratory failure Chronicity: acute Respiratory failure complication: hypoxia and hypercapnia Qualified Code(s): J96.01 - Acute respiratory failure with hypoxia; J96.02 - Acute respiratory failure with hypercapnia (2) Pneumonia Laterality: right Lung location: lower lobe of lung Pneumonia type: due to unspecified organism Qualified Code(s): J18.9 - Pneumonia, unspecified organism
[2020-07-03 05:00] LABS: Prothrombin Time 30.1 Seconds (9.0-12.0)
[2020-07-03] MEDS: LEVOTHYROXINE SODIUM 75 MCG TABLET PO SCH (05:13)
[2020-07-03 05:14] LABS: BUN Creatinine Ratio 21.1 (10-20); Calcium 9.3 mg/dl (8.5-10.1); Creatinine Clr Calc Pharmacy 45.4 ml/min; Magnesium 2.1 mg/dl (1.8-2.4); Phosphorus 3.4 mg/dl (2.5-4.9); Potassium 5.3 mmol/L (3.5-5.1)
--- NOTE | 2020-07-03 07:07 | XRay Report ---
XR chest 1V portable CLINICAL HISTORY: Sepsis. COMPARISON STUDY: Chest radiograph October 10, 2018. FINDINGS: Evaluation is suboptimal given difficulty positioning. There is no pneumothorax. A moderate right pleural effusion is noted. There is a small left pleural effusion. Bibasilar opacities, greate r on the right, have developed. There is pulmonary vascular congestion with suspected mild pulmonary edema. Cardiomediastinal silhouette is stable. There is suspected gaseous distention of the stomach. IMPRESSION: 1. Exam compromised given difficulty positioning. 2. Moderate right and small left pleural effusions with bibasilar opacities that could reflect atelec tasis or consolidation. Radiographic follow-up is recommended. 3. Mild pulmonary edema. 4. Suspected gaseous distention of the stomach. ACT 112: Negative or not required by law. Electronically signed by: Charles Lopez M.D. 07/03/2020 7:05 AM
--- NOTE | 2020-07-03 07:08 | XRay Report ---
KUB CLINICAL HISTORY: Abdominal Distension COMPARISON STUDY: CT of the abdomen and pelvis November 18, 2017. FINDINGS: Right femoral internal fixation hardware is partially imaged. Apparent foreshortening of th e left femoral neck is likely positional. A large amount stool within the colon is noted. There is no evidence for a bowel obstruction. Evaluation is suboptimal given difficulty positioning. IMPRESSION: 1. Large amount stool within the colon. 2. No convincing evidence for a bowel obstruction. ACT 112: Negative or not required by law. Electronically signed by: Charles Lopez M.D. 07/03/2020 7:07 AM
[2020-07-03 07:23] LABS: iSTAT Allen Test Pass; iSTAT Art Bld Gas pCO2 Correct 82 mmHg (35-46); iSTAT Art Bld Gas pH Corrected 7.216 (7.35-7.45); iSTAT Arterial Blood Gas HCO3 34 meg/L (19-24); iSTAT Arterial Blood Gas pCO2 84 mmHg (35-46); iSTAT Arterial Blood Gas pH 7.21 (7.35-7.45); iSTAT Arterial Blood Gas pO2 57 mmHg (80-95); iSTAT Arterial Blood Gas pO2 C 55; iSTAT Carbon Dioxide 36 mmol/L (24-31); iSTAT FiO2 100 %; iSTAT Hematocrit 44 % (37-47); iSTAT Potassium 4.3 mmol/L (3.3-5.0); iSTAT Site R Radial; iSTAT Sodium 138 mmol/L (135-144)
[2020-07-03] MEDS ORDERED: PHYTONADIONE 2.5 MG in SODIUM CHLORIDE 0.9% 50 ML IV ONE (08:15)
[2020-07-03] MEDS ORDERED: POTASSIUM CHLORIDE CRTAB 20 MEQ TABCR PO SCH (09:00)
[2020-07-03] MEDS ORDERED: cloNIDine HCL 0.1 MG TAB PO SCH (09:00)
[2020-07-03] MEDS ORDERED: METOPROLOL TARTRATE 100 MG TAB PO SCH (09:00)
[2020-07-03] MEDS ORDERED: FUROSEMIDE 40 MG TAB PO SCH (09:00)
--- NOTE | 2020-07-03 09:24 | Critical Care Progress Note ---
Date of Service July 03, 2020 Assessment & Plan (1) Acute on chronic respiratory failure with hypoxia and hypercapnia: Chest x-ray 07/02/2020 personally reviewed: Portable film, right-sided pleural effusion with right-sided consolidative process appreciated. Left costophrenic angle is the also mildly blunted. -- Acute on chronic Hypoxic Hypercapnic respiratory failure Multifactorial likely component of diastolic CHF with right-sided pneumonia as well as ventilatory failure from severe kyphosis Continue with antibiotics, bronchodilators Maintain SPO2 between 88 to 92% Continue with BiPAP Follow-up septic work-up COVID-19 PCR - 07/02/2020, procalcitonin 0.25 BNP at the time of presentation 3546 Keep the patient n.p.o. for the time being. Nasal MRSA negative. Continue with cefepime and Flagyl. --Right-sided pleural effusion Patient will definitely benefit from thoracentesis We will perform it once the INR is less than 1.7 --Bilateral lower extremity edema Likely from diastolic CHF Follow-up 2D echo Continue with diuretics Strict in and out --History of PE Diagnosed 2010 INR therapeutic We will hold warfarin for the time being --Hypertension Hold all p.o. medications Give metoprolol 5 mg every 6 hours as needed systolic blood pressure greater than 150 --Hypothyroidism Follow-up TSH and free T4 --Prophylaxis VTE: Warfarin GI: Pepcid Lines: Peripheral Diet: N.p.o. Plan: In/out +521, urine output 675 AB.21/84/57 100% FiO2 I increase the BiPAP to 20/10 100%. Patient is in respiratory distress requiring 100% FiO2. Given that she has severe kyphosis if she gets intubated it will be under fiberoptic with the help of a bronchoscope. Chances of her requiring a trach will be high because I do think there is a high component of her hypercapnia from her musculoskeletal disease Patient will benefit from right-sided pleural effusion thoracentesis but INR is 3.1. Will give vitamin K 2.5 IV to see if there is any improvement and try to do thoracentesis may be tomorrow. We will repeat PT/INR in the evening. Increase Lasix to 40 mg twice daily with first dose given around 2 PM. Patient already got 1 dose of Lasix 40 at around 4 AM today. Follow-up 2D echo I spoke with patient's daughter to see if there is any advanced directive from the patient. Daughter is not aware of anything as such. Patient herself is not sure whether she will want intubation. She got emotional when I asked the question. I did reassure her that we will do everything needed including intubation. Currently we will keep the patient full code. I have personally spent 34 minutes of critical care time in the direct management of this patient. This is a life/limb threatening event. This includes time spent evaluating patient, direct bedside care, chart review, placing orders, interpretation of diagnostic studies, discussion with consultants, patient, and family members, as well as other required patient management activities. This time is exclusive of all separately billable procedures, and teaching time and separate from and in addition to any other critical care service time. Please note the above document was generated using voice recognition software. It may contain grammatical, syntax or spelling errors. (2) Diastolic CHF: (3) Pleural effusion: (4) Pneumonia: (5) Pulmonary embolism: Admission and Anticipated Discharge Date Admission Date: July 03, 2020 Subjective Patient seen and examined at bedside. Patient is on BiPAP continuous 17/8 100% saturating 89-90% Breathing in mid to high 30s. Denies any chest pain, no headache, no nausea or vomiting Denies any fever or chills. No dysuria, no diarrhea. Review of Systems Review of Systems: All systems reviewed & are unremarkable except as noted in Subjective Physical Exam Physical Exam: Constitutional: In respiratory distress HEENT: EOMI, PERRLA, cataract appreciated, severe kyphosis Respiratory system: Decreased air entry bilaterally, more decreased on the right side, positive crackles bilateral lower lobes, mild rhonchi, no wheeze CVS: S1-S2 positive, no murmurs or gallops, tachycardia Abdomen: Soft, nontender, nondistended, positive bowel sounds x4 Extremities: +2 pulses bilaterally radialis/ dorsalis pedis, no cyanosis, +3 pitting edema bilateral lower extremity Neuro: Awake alert oriented x3 Psych: Normal mood and affect G/U: Positive Odell Skin: no rashes, warm and dry Lymphatic: no cervical or axillary lymphadenopathy Results & Data Results & Data ([facility]) Vital Signs (Past 12 Hours) Vital Signs Temp Pulse Pulse Resp BP BP Pulse Ox 07/03/20 09:00 108 H 41 H 89 L 07/03/20 08:36 106 H 43 H 138/75 85 L 07/03/20 08:30 111 H 42 H 81 L 07/03/20 08:00 36.6 C 108 H 34 H 90 07/03/20 07:36 102 H 31 H 147/71 H 87 L 07/03/20 07:30 100 H 28 H 88 L 07/03/20 07:18 98 H 38 H 87 L 07/03/20 07:00 99 H 40 H 88 L 07/03/20 06:46 101 H 32 H 130/77 93 07/03/20 05:36 75 29 H 114/74 92 07/03/20 04:00 97 H 37 H 130/71 95 07/03/20 03:36 99 H 38 H 163/88 H 93 07/03/20 03:01 36.6 C 91 H 36 H 126/91 94 07/03/20 02:35 85 30 H 95 07/03/20 02:04 80 22 105/64 96 07/03/20 01:30 78 20 111/58 L 97 07/03/20 01:04 75 20 98/61 L 97 07/03/20 00:39 82 20 108/55 L 96 07/03/20 00:12 88 22 108/72 96 07/02/20 23:34 81 24 117/68 96 07/02/20 22:56 82 24 131/62 96 07/02/20 22:45 84 84 30 H 95 07/02/20 22:43 30 H 94 07/02/20 22:31 84 97 07/02/20 22:30 84 143/70 H 97 07/02/20 22:22 78 97 07/02/20 22:21 81 121/62 97 07/02/20 22:20 28 H 96 07/02/20 22:15 74 86/63 L 96 07/02/20 22:01 77 26 H 110/47 L 96 07/02/20 22:00 77 96 07/02/20 21:45 84 126/60 94 07/02/20 21:30 86 32 H 126/95 92 07/03/20 04:14 07/03/20 04:14 Coding Level of Care Code Critical Care ea addt'l 30 min Diagnoses Acute on chronic respiratory failure with hypoxia and hypercapnia J96.21; J96.22 Diastolic CHF I50.30 Pleural effusion J90 Pneumonia J18.9 Laterality: right Lung location: lower lobe of lung Pneumonia type: due to unspecified organism Pulmonary embolism I26.99 Time Spent (min) 33 (1) Pneumonia Laterality: right Lung location: lower lobe of lung Pneumonia type: due to unspecified organism Qualified Code(s): J18.9 - Pneumonia, unspecified organism
--- NOTE | 2020-07-03 09:25 | Hospitalist Progress Note ---
Date of Service July 03, 2020 Assessment & Plan (1) Respiratory failure: 79 year old woman who presents with acute on chronic respiratory failure and severe respiratory acidosis. Acute on chronic hypoxic respiratory failure: from XR appears to be secondary to aspiration vs pneumonia -continue cefepime IV -continue metronidazole IV -continue bronchodilators -continue bipap -covid negative, nasal MRSA negative Right-sided pleural effusion -ICU plans to perform thoracentesis when INR is less than 1.7 History of PE in 2010 -INR therapeutic -holding warfarin to prepare for thoracentesis Lower extremity edema: likely from diastolic CHF -f/u echo -continue diuretics -strict I/O's CAD -continue metoprolol -continue simvastatin HTN -continue metoprolol -continue clonidine FENGI: NPO DVT prophylaxis: holding warfarin before thoracentesis Code status: full code Dispo: ICU (2) Pneumonia: (3) Acute respiratory acidosis: (4) Long-term (current) use of anticoagulants, INR goal 2.5-3.5: (5) Pulmonary embolism: Admission and Anticipated Discharge Date Admission Date: July 03, 2020 Supervising Physician Co-Signing Physician Notes I personally examined the patient and verified all eastman points of history and exam, discussed case, and agree with decision making with Dr Isidro. no meaningful HPI or ROS obtainable. family present, updated to the best of my ability and answered questions to her satisfaction vitals noted sedate, laying on side, on bipap, heent nc at mmm breathing unlabored no accessory muscles good effort skin no rashes no pallor or icterus acute mixed hypoxic and hypercapnic respiratory failure - possible aspiration pneumonia and COPD--continue current care, follow closely. otherwise as above Subjective Patient seen at bedside this morning. She is on bipap and is unable to communic ate beyond brief vocalizations in response to my questioning. She indicated she is not in pain but was unable to provide any meaningful ROS beyond this. Review of Systems Review of Systems: Unobtainable due to bipap Physical Exam Constitutional: + ill appearing Respiratory: Auscultation: + rales Crackles and rales heard bilaterally, more prominent in the lower lung connell. Labored breathing, using accessory muscles. Cardiovascular: Rate/Rhythm: regular rhythm and + tachycardic Unable to appreciate the presence of any murmurs over the volume of bipap Gastrointestinal (Abdomen): Percussion/Palpation: abdomen soft; abdomen nontender, no guarding and abdomen not rigid Results & Data Results & Data ([facility]) Vital Signs (Past 12 Hours) Vital Signs Temp Pulse Pulse Resp BP BP Pulse Ox 07/03/20 09:00 108 H 41 H 89 L 07/03/20 08:36 106 H 43 H 138/75 85 L 07/03/20 08:30 111 H 42 H 81 L 07/03/20 08:00 36.6 C 108 H 34 H 90 07/03/20 07:36 102 H 31 H 147/71 H 87 L 07/03/20 07:30 100 H 28 H 88 L 07/03/20 07:18 98 H 38 H 87 L 07/03/20 07:00 99 H 40 H 88 L 07/03/20 06:46 101 H 32 H 130/77 93 07/03/20 05:36 75 29 H 114/74 92 07/03/20 04:00 97 H 37 H 130/71 95 07/03/20 03:36 99 H 38 H 163/88 H 93 07/03/20 03:01 36.6 C 91 H 36 H 126/91 94 07/03/20 02:35 85 30 H 95 07/03/20 02:04 80 22 105/64 96 07/03/20 01:30 78 20 111/58 L 97 07/03/20 01:04 75 20 98/61 L 97 07/03/20 00:39 82 20 108/55 L 96 07/03/20 00:12 88 22 108/72 96 07/02/20 23:34 81 24 117/68 96 07/02/20 22:56 82 24 131/62 96 07/02/20 22:45 84 84 30 H 95 07/02/20 22:43 30 H 94 07/02/20 22:31 84 97 07/02/20 22:30 84 143/70 H 97 07/02/20 22:22 78 97 07/02/20 22:21 81 121/62 97 07/02/20 22:20 28 H 96 07/02/20 22:15 74 86/63 L 96 07/02/20 22:01 77 26 H 110/47 L 96 07/02/20 22:00 77 96 07/02/20 21:45 84 126/60 94 07/02/20 21:30 86 32 H 126/95 92 Resident Activity Tracking Resident Involvement: Resident Care Provided Care Provided: Adult Hospital Medicine (1) Respiratory failure Chronicity: acute Respiratory failure complication: hypoxia and hypercapnia Qualified Code(s): J96.01 - Acute respiratory failure with hypoxia; J96.02 - Acute respiratory failure with hypercapnia (2) Pneumonia Laterality: right Lung location: lower lobe of lung Pneumonia type: due to unspecified organism Qualified Code(s): J18.9 - Pneumonia, unspecified organism
[2020-07-03] MEDS ORDERED: METOPROLOL TARTRATE 1 MG/ML VIAL IV PRN (10:03)
--- NOTE | 2020-07-03 10:28 | Electrocardiogram Report ---
Test Reason : Blood Pressure : / mmHG Vent. Rate : 095 BPM Atrial Rate : 095 BPM P-R Int : 170 ms QRS Dur : 090 ms QT Int : 328 ms P-R-T Axes : 044 069 028 degrees QTc Int : 412 ms Normal sinus rhythm Normal ECG When compared with ECG of 10-OCT-2018 11:07, No significant change was found Confirmed by Nemesio Dickinson ([id number]) on 07/03/2020 10:28:32 AM Referred By: REFERRED SELF Confirmed By:Nemesio Dickinson
[2020-07-03] MEDS: PANTOprazole 40 MG in SYRINGE 0 ML IV SCH (10:46)
[2020-07-03 11:57] LABS: iSTAT Arterial Blood Gas HCO3 33 meg/L (19-24); iSTAT Arterial Blood Gas pCO2 98 mmHg (35-46); iSTAT Arterial Blood Gas pH 7.14 (7.35-7.45); iSTAT Arterial Blood Gas pO2 94 mmHg (80-95); iSTAT Carbon Dioxide 36 mmol/L (24-31)
--- NOTE | 2020-07-03 12:21 | XCELERA ---
[id number] \\[id number]
[2020-07-03] MEDS: CEFEPIME 2,000 MG in SYRINGE 0 ML IV SCH (15:47)
[2020-07-03 16:41] LABS: INR 1.6 (0.9-1.1); Prothrombin Time 16.3 Seconds (9.0-12.0)
--- NOTE | 2020-07-03 16:43 | Billing Data ---
Date of Service July 03, 2020 Coding Level of Care Code 93250 Subseq Hosp Care Lvl 2
[2020-07-03 17:28] LABS: iSTAT Allen Test Pass; iSTAT Arterial Blood Gas HCO3 32 meg/L (19-24); iSTAT Arterial Blood Gas pCO2 81 mmHg (35-46); iSTAT Arterial Blood Gas pH 7.21 (7.35-7.45); iSTAT Arterial Blood Gas pO2 80 mmHg (80-95); iSTAT Carbon Dioxide 35 mmol/L (24-31); iSTAT FiO2 80 %; iSTAT Site R Radial
[2020-07-03 18:55] LABS: INR 1.4 (0.9-1.1); Prothrombin Time 14.7 Seconds (9.0-12.0)
[2020-07-03 19:03] LABS: BUN Creatinine Ratio 18.1 (10-20); Calcium 9.9 mg/dl (8.5-10.1); Creatinine Clr Calc Pharmacy 27.8 ml/min; Est GFR (African American) 44.2; Est GFR (Non-African American) 38.1; Phosphorus 3.7 mg/dl (2.5-4.9); Potassium 4.6 mmol/L (3.5-5.1)
[2020-07-03] MEDS: ICU ELECTROLYTE REPLACEMENT PROTOCOL SCH (19:12)
[2020-07-03] MEDS ORDERED: FUROSEMIDE 40 MG in SYRINGE 0 ML IV SCH (21:00)
[2020-07-03] MEDS ORDERED: SIMVASTATIN 80 MG TAB PO SCH (21:00)
[2020-07-03] MEDS ORDERED: METOPROLOL TARTRATE 1 MG/ML VIAL IV STA ×2 (23:07→23:13)
[2020-07-03] MEDS ORDERED: STAT IV Infusion **Titration per Protocol STA (23:22)
[2020-07-03] MEDS ORDERED: ALBUMIN 25% 100 ML IV ONE (23:22)
[2020-07-03] MEDS ORDERED: DIGOXIN 250 MCG in SYRINGE 9 ML IV STA (23:35)
[2020-07-03] MEDS: ESMOLOL / NSS 2,500 MG/250 ML BAG IV SCH (23:39)
--- NOTE | 2020-07-03 23:46 | Communication Note ---
Date of Service: July 03, 2020 I was called to bedside by nursing staff as the patient had converted to a rapid A. fib with RVR with rates into the 180s. Patient initially received IV doses of metoprolol totaling 10 mg with minimal relief of tachycardia. Given the patient's home dosing of beta-dudley, this was felt to be most appropriate course of action. Despite metoprolol dosing and heart rates in the 140s, the patient remained with labile blood pressures in the 80s to 90s. Orders were placed for albumin as well as esmolol. Patient's heart rate remained in the 130s to 140s despite this administration, however her blood pressures continue to drop. At this point, orders were placed for phenylephrine. I did place a call to my attending provider as it was concern for need for cardioversion secondary to instability. I did reach out to emergency medicine colleague for assistance in the event of need for emergent airway intervention secondary to significant anatomical abnormalities which would make airway management difficult. Arterial line was placed for close hemodynamic monitoring. ER colleague did present at bedside. Patient received 1 mg IV Versed and with appropriate sedation, the patient was cardioverted with 50 J. She did remain in sinus rhythm with a rate in the 80s for a few minutes before converting back into the rapid A. fib. At this point, esmolol was discontinued and orders were placed for amiodarone. Prior to full admission of bolus of amiodarone, the patient converted to a sinus rhythm. Her blood pressures did respond appropriately. Orders were placed for continuation of amiodarone at this time. The patient became more wakeful and did not lose oxygen saturations throughout cardioversion. Patient will remain with BiPAP in place. Will titrate down phenylephrine as tolerated. Will remain on amiodarone. I have personally spent 74 minutes of critical care time in the direct management of this patient. This is a life/limb threatening event. This includes time spent evaluating patient, direct bedside care, chart review, placing orders, interpretation of diagnostic studies, discussion with consultants, patient, and family members, as well as other required patient management activities. This time is exclusive of all separately billable procedures, and teaching time and separate from and in addition to any other critical care service time. Coding Level of Care Code Critical Care ea addt'l 30 min Time Spent (min) 51
[2020-07-04] MEDS ORDERED: STAT IV Infusion **Titration per Protocol STA ×2 (00:14→00:56)
[2020-07-04] MEDS ORDERED: PHENYLEPHRINE HCL 20 MG in DEXTROSE 5% 500 ML IV SCH (00:15)
[2020-07-04] MEDS ORDERED: NORMOSOL-R 250 ML IV ONE (00:15)
[2020-07-04] MEDS ORDERED: MIDAZOLAM BOLUS FROM BAG IV PRN (00:18)
[2020-07-04] MEDS ORDERED: MIDAZOLAM HCL 1 MG/ML 2ML VIAL ONE (00:24)
[2020-07-04 00:26] LABS: iSTAT Arterial Blood Gas HCO3 32 meg/L (19-24); iSTAT Arterial Blood Gas pCO2 65 mmHg (35-46); iSTAT Arterial Blood Gas pO2 66 mmHg (80-95); iSTAT Carbon Dioxide 34 mmol/L (24-31); iSTAT FiO2 65 %; iSTAT Site Art Line
[2020-07-04] MEDS ORDERED: RAPID SEQUENCE INDUCTION BAG ONE (00:27)
[2020-07-04] MEDS ORDERED: AMIODARONE 150MG / 100ML D5W IV ONE (00:40)
[2020-07-04 00:44] LABS: Hematocrit (blood only) 36.1 % (37-47)
[2020-07-04] MEDS ORDERED: AMIODARONE / D5W 150 MG/100 ML BAG IV STA (00:56)
[2020-07-04] MEDS ORDERED: 0.2 MICRON FILTER SET 1 EA IV ONE (00:56)
[2020-07-04] MEDS ORDERED: AMIODARONE / D5W 360 MG/200 ML BAG IV ONE (00:56)
[2020-07-04] MEDS ORDERED: AMIODARONE IV BOLUS & DRIP IV STA (00:56)
[2020-07-04] MEDS ORDERED: AMIODARONE 360MG / 200ML D5W IV ONE (00:57)
--- NOTE | 2020-07-04 00:58 | Emergency Department Note ---
ED Visit Note This Patient was discussed with the Landon Valadez PA-C. The pertinent historical and physical exam findings were confirmed. I agree with the studies ordered and with the interpretations of these studies. I agree with the disposition and care plan. I was called to the ICU as the patient was experiencing rapid atrial fibrillation with hypotension. She became unstable. She was receiving IV beta- blockers. The decision was made to electively cardiovert the patient. The patient was treated with some medication for anxiety prior to procedure. Please see Landon Valadez's note for procedure details. The patient tolerated the procedure well. She was cardioverted to sinus rhythm. Blood pressure was improved. The patient remains in critical condition at this time. . : Respiratory failure Qualifiers: Chronicity: acute Respiratory failure complication: hypoxia and hypercapnia Qualified Code(s): J96.01 - Acute respiratory failure with hypoxia Pneumonia Qualifiers: Pneumonia type: due to unspecified organism Laterality: right Lung location: lower lobe of lung Qualified Code(s): J18.9 - Pneumonia, unspecified organism
[2020-07-04 01:06] LABS: BUN Creatinine Ratio 22.2 (10-20); Calcium 8.8 mg/dl (8.5-10.1); Creatinine Clr Calc Pharmacy 30.8 ml/min; Est GFR (Non-African American) 43.1; Magnesium 2.1 mg/dl (1.8-2.4); Potassium 4.6 mmol/L (3.5-5.1)
--- NOTE | 2020-07-04 01:06 | Procedure Note ---
Procedure Note Date of Service July 04, 2020 Procedure: Arterial Line Placement Attending: Dr. Orellana APC: Landon Valadez PA-C Indication: Monitoring on Pressors Anesthesia: Lidocaine 1% Emergent consent implied in the setting of worsening hemodynamics and need for close monitoring during cardioversion procedure and possible need for emergent endotracheal intubation. A time-out was completed verifying correct patient, procedure, site, positioning, and implant(s) or special equipment if applicable. Allens test was performed to ensure adequate perfusion. Patients LEFT wrist was prepped and draped in the usual sterile fashion. Ultrasound guidance was used to aid needle placement. A 20g Arrow arterial line was introduced into the LEFT Radial artery. Catheter was threaded, and the needle was removed with appropriate blood return. Good waveform was observed. The patient tolerated the procedure well. Confirmation of placement with ultrasound. Blood Loss: Minimal Complications: None Procedural Ultrasound Guidance: Procedure Date: 07/04/2020 Indication: Pressors, frequent ABGs, Need for close hemodynamic monitoring Attending: Dr. Orellana APC: Landon Valadez PA-C Artery Identified: YES Line confirmed in Artery with ultrasound: YES Complications: NONE Patient tolerated procedure: WELL Coding CPT Codes Tubes, Drains, and Vasc Access - Tubes, Drains, and Vasc Access: [id number] Place Catheter In Artery ([id number]) [facility] [place] Procedure Codes (Charges) Tubes, Drains, and Vasc Access Procedure 1: Tubes, Drains, and Vasc Access: [id number] Place Catheter In Artery
[2020-07-04] MEDS: CEFEPIME 2,000 MG in SYRINGE 0 ML IV SCH (03:28)
[2020-07-04] MEDS: metroNIDAZOLE 500 MG/100 ML BAG IV SCH (03:28)
[2020-07-04 04:58] LABS: Hematocrit (blood only) 33.6 % (37-47); Hemoglobin 11.1 g/dL (12.0-16.0); Immature Granulocytes # (auto) 0.03 K/uL (0.00-0.02); Immature Granulocytes % (auto) 0.2 %; Lymphocytes # (auto) 0.41 K/uL (1.2-3.4); Mean Corpuscular Hemoglobin 31.4 pg (25-34); Mean Corpuscular Volume 95.2 fL (80-100); Mean Platelet Volume 11.6 fL (7.4-10.4); Monocytes % (auto) 9.6 %; Neutrophils # (auto) 11.81 K/uL (1.4-6.5); Neutrophils % (auto) 87.2 %; Platelet Count 114 K/uL (130-400); RDW Coefficient of Variation 12.8 % (11.5-14.5); RDW Standard Deviation 43.9 fL (36.4-46.3); Red Blood Count 3.53 M/uL (4.2-5.4); White Blood Count 13.55 K/uL (4.8-10.8)
[2020-07-04 05:06] LABS: INR 1.2 (0.9-1.1)
[2020-07-04 05:28] LABS: Albumin Level 2.6 gm/dl (3.4-5.0); BUN Creatinine Ratio 25.1 (10-20); Calcium 8.7 mg/dl (8.5-10.1); Creatinine Clr Calc Pharmacy 33.3 ml/min; Est GFR (African American) 54.9; Est GFR (Non-African American) 47.3; Magnesium 2.1 mg/dl (1.8-2.4); Potassium 4.2 mmol/L (3.5-5.1)
[2020-07-04 05:33] LABS: Bilirubin Direct 0.3 mg/dl (0-0.2); Bilirubin,Total 0.6 mg/dl (0.2-1); Phosphorus 2.3 mg/dl (2.5-4.9); Total Protein 5.6 gm/dl (6.4-8.2)
[2020-07-04] MEDS ORDERED: SODIUM PHOSPHATE 3 MMOL/1 ML INFUSION IV STA (05:48)
[2020-07-04] MEDS ORDERED: DIGOXIN 250 MCG in SYRINGE 9 ML IV SCH (06:00)
[2020-07-04] MEDS ORDERED: SODIUM PHOSPHATE 15 MMOL in SODIUM CHLORIDE 0.9% 250 ML IV ONE (06:00)
[2020-07-04 06:11] LABS: iSTAT Arterial Blood Gas HCO3 35 meg/L (19-24); iSTAT Arterial Blood Gas pCO2 73 mmHg (35-46); iSTAT Arterial Blood Gas pH 7.29 (7.35-7.45); iSTAT Arterial Blood Gas pO2 69 mmHg (80-95); iSTAT Carbon Dioxide 37 mmol/L (24-31); iSTAT FiO2 22 %; iSTAT Site Art Line
[2020-07-04] MEDS: ICU ELECTROLYTE REPLACEMENT PROTOCOL SCH ×2 (06:17→17:17)
[2020-07-04] MEDS: AMIODARONE / D5W 360 MG/200 ML BAG IV SCH ×2 (06:26→18:46)
--- NOTE | 2020-07-04 06:39 | Procedure Note ---
Procedure Note Date of Service July 04, 2020 Electrocardioversion Given patient's instability if hemodynamics despite aggressive interventions with beta-blockers and volume expansion, patient now requires emergent electrocardioversion to correct A. fib with rapid ventricular response. Patient is currently BiPAP dependent. Backup rate on the BiPAP was set at 20/min. Patient received 1 mg IV Versed. Appropriate level of sedation was achieved without drop in respiratory rate or oxygenation. Pacer pads have been placed prior to need for intervention. After discussion with all staff members at bedside, the patient was thoroughly assessed and felt to be all clear. Orders were given to cardiovert patient using 50 J. Patient successfully cardioverted with 1 shock at 50 J. She did convert back to A. fib RVR shortly after. Please see remaining notes. Patient tolerated procedure well. No immediate adverse outcomes appreciated. Coding CPT Codes Resuscitation - Resuscitation: [id number] Cardioversion electric, ext ([id number]) [facility] [place] Procedure Codes (Charges) Resuscitation Resuscitation: [id number] Cardioversion electric, ext
--- NOTE | 2020-07-04 07:22 | XRay Report ---
XR chest 1V portable CLINICAL HISTORY: Respiratory difficulty COMPARISON STUDY: 07/02/2020 FINDINGS: The heart is normal in size. There is radiographic evidence of mild congestive failure/flui d overload. There is a persistent right pleural effusion. There are right basilar opacities, possibly representing a pneumonia although compressive atelectasis could appear similar. IMPRESSION: 1. Mild congestive failure/fluid overload 2. Right pleural effusion 3. Right basilar opacities, pneumonia versus atelectasis ACT 112: Negative or not required by law. Electronically signed by: Christopher Looney M.D. 07/04/2020 7:21 AM
[2020-07-04] MEDS: ESMOLOL / NSS 2,500 MG/250 ML BAG IV SCH (08:43)
[2020-07-04] MEDS ORDERED: LEVOTHYROXINE SODIUM IV SCH (09:00)
[2020-07-04] MEDS ORDERED: hydrALAZINE HCL 20 MG/ML VIAL IV PRN (09:52)
--- NOTE | 2020-07-04 09:54 | Critical Care Progress Note ---
Date of Service July 04, 2020 Assessment & Plan (1) Acute on chronic respiratory failure with hypoxia and hypercapnia: Impression: 79-year-old female with severe kyphosis and known coronary disease admitted to the ICU with hypoxemic and hypercarbic respiratory failure requiring noninvasive positive pressure ventilation. 24-hour events: Overnight the patient developed atrial fibrillation with rapid ventricular response. She is hemodynamically unstable requiring initiation of Dudley-Synephrine. Eventually decision was made to cardiovert. Was initially treated with esmolol as well. Cardioversion was successful and the patient was started on amiodarone. Hemodynamics have improved with hindu of normal sinus rhythm. Patient is maintained on fullface BiPAP overnight. Recommendations: 1. Neurologic: Metabolic encephalopathy related to hypercarbia which appears to be improving. Continue to follow. 2. Cardiovascular: Atrial fibrillation with rapid ventricular response. Converted with amiodarone. Currently on 0.5 mg/h. We will continue IV until she can take oral. Will need to start anticoagulation at some point however the patient may require procedures so we will hold off full anticoagulation for now. She does have diastolic dysfunction which likely was aggravated by her tachycardia. Continue blood pressure control and gentle diuresis. BNP was elevated. 3. Pulmonary: Hypercarbic respiratory failure likely due to restrictive lung disease due to. Will decrease the patient's BiPAP down to 17/5 as she requires driving pressure and not necessarily increased mean airway pressure. Tidal vol umes appear to be between 350 and 420 on the settings. We will check a blood gas in about an hour to ensure she is going in the right direction. If we can get her pH above 7.3, I would consider giving her a break off BiPAP and seeing how she does. Agree with assessment of other providers that intubation in this patient would be problematic and liberation from mechanical ventilation would be difficult at best and may require tracheostomy. I discussed this with the patient. She is not sure she wants to pursue that route but I do not think we are an imminent danger of needing to pursue that route urgently. Radiology notes right pleural effusion however on ultrasound this effusion is trivi al/small and the abnormality mostly represents consolidative lung changes. Would continue to follow this point time and not pursue thoracentesis. Okay to start heparin infusion 4. GI: Keep n.p.o. for now pending improvement in the patient's respiratory status. 5. Renal: Patient was initially diuresed with increase in serum creatinine, improving today. Will place on low-dose diuretics and see how she does 6. Endocrine: Glycemic control per protocol. Continue Synthroid once able to take oral 7. Heme-onc: Leukocytosis improved today. She is mildly anemic but does not warrant transfusion. Continue to trend. Anticoagulation with Coumadin was reversed. There is a remote history of PE in 2010 with reported history of protein S deficiency on lifelong Coumadin. she has atrial fibrillation which gives her a second issue to require anticoagulation. On hold for procedures today (possible thoracentesis) 8. Infectious disease: Is currently receiving Flagyl and cefepime. Appears antibiotics were initiated for aspiration. Will discontinue cefepime and Flagyl and replace with rocephin. Review of the patient's chart indicates that she is blind at baseline and ambulates with the assistance of. Initial notes indicated that reluctant to undergo significant interventions. I think putting her through CPR in the event of a cardiac arrest or intubating her in the event of a respiratory arrest would likely not significantly improve her overall quality of life this is a 79-year- old debilitated patient. We will try and update family and patient as appropriate. Palliative care consultation to assist patient and family in defining goals of therapy would be appropriate (2) Pleural effusion: (3) Diastolic CHF: (4) Admitted to intensive care unit: (5) Hypoxia: Admission and Anticipated Discharge Date Admission Date: July 03, 2020 Subjective Patient seen and examined. Discussed with critical care RAUL as well as off going cold mill operator and ICU bedside nurse. The patient remains on full face BiPAP. She denies pain. She does state that it is slightly uncomfortable to breathe with the mask in place. 24-hour events noted. Review of Systems Review of Systems: Unobtainable due to reduced consciousness Physical Exam 2 Constitutional: + thin, + physical limitations, + frail appearing and + lethargic Full face BiPAP in place Neck: Severe kyphosis with an almost 90 degree angle tween her lower lumbar spine and upper cervical spine Respiratory: + labored breathing, + retractions and + uses accessory muscles Auscultation: + crackles; no wheezes Crackles at the right base with decreased breath sounds Cardiovascular: RRR, no murmur, no edema Gastrointestinal (Abdomen): normal bowel sounds, soft, nontender, no hepatosplenomegaly Musculoskeletal: Extremities: extremities normal to inspection Skin: no rashes, warm and dry Neurologic: Nonfocal exam Lymphatic: no cervical lymphadenopathy Results & Data Results & Data ([facility]) Vital Signs (Past 12 Hours) Vital Signs Temp Pulse Resp BP Pulse Ox 07/04/20 08:39 36.7 C 94 H 33 H 134/67 93 07/04/20 08:30 97 H 31 H 91 07/04/20 08:09 77 26 H 132/61 94 07/04/20 08:00 82 21 94 07/04/20 07:39 93 H 28 H 131/62 90 07/04/20 07:30 94 H 30 H 91 07/04/20 07:09 84 21 125/79 93 07/04/20 07:00 86 28 H 91 07/04/20 06:45 83 24 92 07/04/20 06:09 28 H 137/68 92 07/04/20 05:09 85 28 H 110/59 L 94 07/04/20 04:10 36.6 C 93 H 30 H 122/62 91 07/04/20 03:52 85 24 92 07/04/20 03:39 91 H 29 H 128/67 92 07/04/20 02:39 100 H 34 H 137/71 92 07/04/20 02:09 83 24 105/57 L 94 07/04/20 01:39 129 H 19 122/84 07/04/20 01:07 77 21 105/55 L 94 07/04/20 01:05 75 20 119/54 L 94 07/04/20 01:03 77 20 99/71 L 93 07/04/20 01:01 78 18 93 07/04/20 01:00 75 21 92 07/04/20 00:59 74 20 91/51 L 93 07/04/20 00:57 80 17 97/58 L 93 07/04/20 00:55 78 20 83/50 L 92 07/04/20 00:53 78 20 85/50 L 92 07/04/20 00:51 85 23 86/52 L 91 07/04/20 00:48 86 20 84/54 L 90 07/04/20 00:47 90 20 84/45 L 90 07/04/20 00:46 90 22 77/46 L 89 L 07/04/20 00:45 36.6 C 92 H 24 69/45 L 89 L 07/04/20 00:43 156 H 20 63/44 L 88 L 07/04/20 00:41 157 H 20 66/48 L 88 L 07/04/20 00:39 152 H 22 88/37 L 89 L 07/04/20 00:38 151 H 20 81/39 L 90 07/04/20 00:35 90 22 86/53 L 90 07/04/20 00:33 150 H 19 98/68 L 91 07/04/20 00:31 151 H 26 H 107/62 90 07/04/20 00:28 130 H 24 90/52 L 90 07/04/20 00:23 156 H 25 H 92/53 L 91 07/04/20 00:18 151 H 26 H 90 07/04/20 00:13 151 H 30 H 68/38 L 91 07/04/20 00:08 159 H 32 H 91 07/04/20 00:05 138 H 07/04/20 00:03 172 H 35 H 100/61 91 07/04/20 00:00 163 H 24 92 07/03/20 23:58 157 H 33 H 91/66 L 87 L 07/03/20 23:56 165 H 32 H 97/54 L 88 L 07/03/20 23:53 158 H 31 H 91 07/03/20 23:48 157 H 31 H 114/46 L 92 07/03/20 23:43 146 H 33 H 124/65 92 07/03/20 23:38 169 H 28 H 81/59 L 92 07/03/20 23:33 159 H 34 H 113/86 93 07/03/20 23:29 162 H 96/65 L 07/03/20 23:28 158 H 28 H 96/65 L 92 07/03/20 23:27 154 H 07/03/20 23:26 167 H 07/03/20 23:20 163 H 32 H 103/50 L 93 07/03/20 23:11 176 H 31 H 104/54 L 93 07/03/20 23:07 105 H 24 110/65 93 07/03/20 23:00 105 H 29 H 94 07/03/20 22:56 110 H 31 H 113/63 95 07/03/20 22:08 95 H 23 106/53 L 91 07/03/20 21:56 80 24 92 Laboratory Results 07/04/20 04:37 07/04/20 04:37 INR 1.2 07/02/20 21:25 VBG pH 7.13 L VBG pCO2 111 H VBG pO2 31 VBG HCO3 36 VBG O2 Saturation < 60.0 VBG Base Excess 2.4 Diagnostic Findings Chest x-ray from today was independently reviewed. Mild cardiomegaly with small right-sided pleural effusion and right basilar opacities. Echo from 07/03/2020 showed normal circular systolic function with concentric LVH and EF of 65 to 70% with mild tricuspid regurgitation. Right atrial pressur e estimated at 3. E to E prime ratio of 13.5 consistent with diastolic dysfunction Coding Level of Care Code Critical Care 1st 30-74 mins Diagnoses Acute on chronic respiratory failure with hypoxia and hypercapnia J96.21; J96.22 Pleural effusion J90 Diastolic CHF I50.30 Admitted to intensive care unit Z78.9 Hypoxia R09.02
[2020-07-04] MEDS ORDERED: METOPROLOL TARTRATE 25 MG TAB PO SCH (10:00)
[2020-07-04 10:35] LABS: Base Excess ABG 3.6 mEq/L (-9-1.8); HCO3 ABG 32 mmol/L (19-24); Oxygen Saturation ABG 92.1 % (90-95); PCO2 ABG 67 mmHg (35-46); PO2 ABG 67 mmHg (80-95); pH ABG 7.29 (7.35-7.45)
[2020-07-04 10:36] LABS: Allen Test Pos (Pos)
[2020-07-04] MEDS: cefTRIAXone SODIUM 1,000 MG in DEXTROSE 5% 50 ML IV SCH (11:28)
[2020-07-04] MEDS: PANTOprazole 40 MG in SYRINGE 0 ML IV SCH (11:29)
[2020-07-04] MEDS: HEPARIN SODIUM/DEXTROSE 25,000 UNITS/500 ML BAG IV SCH (11:29)
[2020-07-04] MEDS ORDERED: FUROSEMIDE 20 MG in SYRINGE 0 ML IV ONE (11:30)
--- NOTE | 2020-07-04 17:03 | Billing Data ---
Date of Service July 04, 2020 Coding Level of Care Code 79144 Subseq Hosp Care Lvl 2
[2020-07-04] MEDS: METOPROLOL TARTRATE 25 MG TAB PO SCH ×2 (17:16→20:57)
[2020-07-04 18:22] LABS: Partial Thromboplastin Ratio 3.1
--- NOTE | 2020-07-04 18:38 | Hospitalist Progress Note ---
Date of Service July 04, 2020 Assessment & Plan (1) Respiratory failure: 79 year old woman who presents with acute on chronic respiratory failure and severe respiratory acidosis. Acute on chronic hypoxic respiratory failure: from XR appears to be secondary to aspiration vs pneumonia -continue cefepime IV -continue metronidazole IV -continue bronchodilators -continue bipap -covid negative, nasal MRSA negative -ICU considering tracheostomy Right-sided pleural effusion -ICU plans to perform thoracentesis when INR is less than 1.7 Atrial fibrillation with RVR -electrocardioverted last night -continue amiodarone History of PE in 2010 -INR therapeutic -holding warfarin to prepare for thoracentesis Lower extremity edema: likely from diastolic CHF -f/u echo -continue diuretics -strict I/O's CAD -continue metoprolol -continue simvastatin HTN -continue metoprolol -continue clonidine FENGI: NPO DVT prophylaxis: holding warfarin before thoracentesis Code status: full code Dispo: ICU (2) Pneumonia: (3) Acute respiratory acidosis: (4) Long-term (current) use of anticoagulants, INR goal 2.5-3.5: (5) Pulmonary embolism: Admission and Anticipated Discharge Date Admission Date: July 03, 2020 Supervising Physician Co-Signing Physician Notes I personally examined the patient and verified all eastman points of history and exam, discussed case, and agree with decision making with Dr Isidro. no meaningful HPI or ROS obtainable. d/w nursing extensively vitals noted sedate, laying on side, on bipap, heent nc at mmm breathing unlabored no accessory muscles good effort skin no rashes no pallor or icterus acute mixed hypoxic and hypercapnic respiratory failure - possible aspiration pneumonia and COPD--continue current care, follow closely. appreciate ICU management. otherwise as above Subjective Patient was seen at the bedside this morning. She was somnolent and largely unable to communicate through her bipap machine. She went into afib with RVR yesterday evening and was cardioverted back to normal sinus rhythm. Review of Systems Review of Systems: Unobtainable due to bipap Physical Exam Constitutional: + ill appearing Respiratory: Auscultation: + rales Cardiovascular: Rate/Rhythm: + tachycardic Gastrointestinal (Abdomen): Percussion/Palpation: abdomen soft; abdomen nontender, no guarding and abdomen not rigid Results & Data Results & Data ([facility]) Vital Signs (Past 12 Hours) Vital Signs Temp Pulse Resp BP Pulse Ox 07/04/20 11:45 36.7 C 101 H 28 H 92 07/04/20 11:39 103 H 28 H 130/61 91 07/04/20 11:32 103 H 28 H 92 07/04/20 11:30 95 H 28 H 93 07/04/20 11:15 100 H 28 H 93 07/04/20 11:09 100 H 29 H 131/68 94 07/04/20 11:00 102 H 30 H 94 07/04/20 10:45 84 25 H 93 07/04/20 10:39 101 H 26 H 132/60 94 07/04/20 10:30 86 23 93 07/04/20 10:15 86 25 H 93 07/04/20 10:09 100 H 27 H 132/67 93 07/04/20 10:00 103 H 33 H 94 07/04/20 09:45 94 H 30 H 94 07/04/20 09:39 95 H 27 H 129/64 93 07/04/20 09:30 101 H 27 H 94 07/04/20 09:15 93 H 27 H 94 07/04/20 09:09 96 H 29 H 134/62 93 07/04/20 09:00 92 H 33 H 94 07/04/20 08:45 94 H 33 H 93 07/04/20 08:39 36.7 C 94 H 33 H 134/67 93 07/04/20 08:30 97 H 31 H 91 07/04/20 08:09 77 26 H 132/61 94 07/04/20 08:00 82 21 94 07/04/20 07:39 93 H 28 H 131/62 90 07/04/20 07:30 94 H 30 H 91 07/04/20 07:19 92 H 30 H 92 07/04/20 07:09 84 21 125/79 93 07/04/20 07:00 86 28 H 91 07/04/20 06:45 83 24 92 Resident Activity Tracking Resident Involvement: Resident Care Provided Care Provided: Adult Hospital Medicine (1) Respiratory failure Chronicity: acute Respiratory failure complication: hypoxia and hypercapnia Qualified Code(s): J96.01 - Acute respiratory failure with hypoxia; J96.02 - Acute respiratory failure with hypercapnia (2) Pneumonia Laterality: right Lung location: lower lobe of lung Pneumonia type: due to unspecified organism Qualified Code(s): J18.9 - Pneumonia, unspecified organism
[2020-07-04 18:40] LABS: Partial Thromboplastin Time 86.5 Seconds (21.0-31.0)
--- NOTE | 2020-07-04 19:50 | Billing Data ---
Date of Service July 04, 2020 Coding Level of Care Code Critical Care 1st - mins
[2020-07-05 01:17] LABS: Partial Thromboplastin Ratio 2.7
[2020-07-05 01:20] LABS: Partial Thromboplastin Time 74.9 Seconds (21.0-31.0)
[2020-07-05] MEDS ORDERED: METOPROLOL TARTRATE 1 MG/ML VIAL IV STA (03:25)
[2020-07-05] MEDS ORDERED: METOPROLOL TARTRATE 1 MG/ML VIAL IV ONE (03:28)
[2020-07-05] MEDS ORDERED: 0.2 MICRON FILTER SET 1 EA IV ONE (03:36)
[2020-07-05] MEDS ORDERED: AMIODARONE / D5W 150 MG/100 ML BAG IV STA (03:36)
[2020-07-05 04:16] LABS: Hematocrit (blood only) 36.6 % (37-47); Hemoglobin 12.2 g/dL (12.0-16.0); Immature Granulocytes # (auto) 0.02 K/uL (0.00-0.02); Immature Granulocytes % (auto) 0.2 %; Lymphocytes # (auto) 0.37 K/uL (1.2-3.4); Lymphocytes % (auto) 3.3 %; Mean Corpuscular Hemoglobin 31.6 pg (25-34); Mean Corpuscular Hgb Conc 33.3 g/dL (32-36); Mean Corpuscular Volume 94.8 fL (80-100); Mean Platelet Volume 11.1 fL (7.4-10.4); Monocytes # (auto) 1.16 K/uL (0.11-0.59); Monocytes % (auto) 10.2 %; Neutrophils % (auto) 86.3 %; Platelet Count 117 K/uL (130-400); RDW Coefficient of Variation 12.7 % (11.5-14.5); RDW Standard Deviation 43.4 fL (36.4-46.3); Red Blood Count 3.86 M/uL (4.2-5.4); White Blood Count 11.35 K/uL (4.8-10.8)
[2020-07-05 04:44] LABS: BUN Creatinine Ratio 28.9 (10-20); Calcium 8.8 mg/dl (8.5-10.1); Creatinine Clr Calc Pharmacy 36.2 ml/min; Est GFR (African American) 60.7; Est GFR (Non-African American) 52.4; Magnesium 2.1 mg/dl (1.8-2.4); Phosphorus 2.4 mg/dl (2.5-4.9); Potassium 3.2 mmol/L (3.5-5.1)
[2020-07-05] MEDS ORDERED: POTASSIUM CHLORIDE CRTAB 20 MEQ TABCR PO SCH (05:15)
[2020-07-05] MEDS ORDERED: POTASSIUM PHOS 3 MMOL/1 ML INFUSION IV STA (05:24)
[2020-07-05] MEDS ORDERED: POTASSIUM PHOSPHATE 21 MMOL in SODIUM CHLORIDE 0.9% 500 ML IV ONE (05:30)
[2020-07-05 05:43] LABS: iSTAT Art Bld Gas pCO2 Correct 63 mmHg (35-46); iSTAT Art Bld Gas pH Corrected 7.374 (7.35-7.45); iSTAT Arterial Blood Gas HCO3 37 meg/L (19-24); iSTAT Arterial Blood Gas pCO2 63 mmHg (35-46); iSTAT Arterial Blood Gas pH 7.37 (7.35-7.45); iSTAT Arterial Blood Gas pO2 49 mmHg (80-95); iSTAT Arterial Blood Gas pO2 C 48; iSTAT Carbon Dioxide 38 mmol/L (24-31); iSTAT Hematocrit 34 % (37-47); iSTAT Hemoglobin 11.6 g/dl (12.0-16.0); iSTAT Potassium 3.1 mmol/L (3.3-5.0); iSTAT Site Art Line; iSTAT Sodium 140 mmol/L (135-144)
[2020-07-05] MEDS: POT PHOSPHATE MONOBASIC W/ SOD TAB PO SCH ×2 (05:47→09:47)
[2020-07-05] MEDS: ICU ELECTROLYTE REPLACEMENT PROTOCOL SCH ×2 (05:48→18:22)
[2020-07-05] MEDS: POTASSIUM CHLORIDE / WTR 10 MEQ/100 ML PLCT IV SCH ×4 (05:48→08:45)
[2020-07-05] MEDS: AMIODARONE / D5W 360 MG/200 ML BAG IV SCH (06:43)
--- NOTE | 2020-07-05 06:53 | Hospitalist Progress Note ---
Date of Service July 05, 2020 Assessment & Plan (1) Respiratory failure: 79 year old woman who presents with acute on chronic respiratory failure and severe respiratory acidosis. Acute on chronic hypoxic respiratory failure: from XR appears to be secondary to aspiration vs pneumonia -continue cefepime IV -continue metronidazole IV -continue bronchodilators -continue bipap -covid negative, nasal MRSA negative -ICU considering tracheostomy Right-sided pleural effusion -ICU plans to perform thoracentesis when INR is less than 1.7 Atrial fibrillation with RVR -electrocardioverted last night -continue amiodarone History of PE in 2010 -INR therapeutic -holding warfarin to prepare for thoracentesis Lower extremity edema: likely from diastolic CHF -f/u echo -continue diuretics -strict I/O's CAD -continue metoprolol -continue simvastatin HTN -continue metoprolol -continue clonidine FENGI: NPO DVT prophylaxis: holding warfarin before thoracentesis Code status: full code Dispo: ICU (2) Pneumonia: (3) Acute respiratory acidosis: (4) Long-term (current) use of anticoagulants, INR goal 2.5-3.5: (5) Pulmonary embolism: Admission and Anticipated Discharge Date Admission Date: July 03, 2020 Subjective Patient was seen at the bedside this morning. She was somnolent and largely unable to communicate through her bipap machine. She went into afib with RVR yesterday evening and was cardioverted back to normal sinus rhythm. Review of Systems Review of Systems: Unobtainable due to bipap Results & Data Results & Data ([facility]) Vital Signs (Past 12 Hours) Vital Signs Temp Pulse Resp BP Pulse Ox 07/05/20 06:12 37.1 C 88 32 H 132/65 88 L 07/05/20 05:12 81 37 H 131/69 90 07/05/20 04:12 36.8 C 72 26 H 113/66 93 07/05/20 03:57 145 H 07/05/20 03:24 135 H 20 115/75 92 07/05/20 03:18 137 H 32 H 105/75 90 07/05/20 03:12 93 H 36 H 131/64 89 L 07/05/20 02:12 85 28 H 138/67 90 07/05/20 01:12 69 20 140/70 94 07/05/20 00:12 36.7 C 75 14 118/64 95 07/04/20 23:59 77 07/04/20 23:12 69 24 135/68 95 07/04/20 22:10 36.7 C 86 26 H 139/66 93 07/04/20 22:06 87 26 H 92 07/04/20 21:40 87 29 H 140/68 91 07/04/20 20:59 85 36 H 137/66 82 L 07/04/20 20:10 36.7 C 88 27 H 145/69 H 88 L 07/04/20 20:00 83 07/04/20 19:42 89 34 H 90 07/04/20 19:40 85 25 H 136/80 91 07/04/20 19:10 90 31 H 141/72 H 87 L (1) Respiratory failure Chronicity: acute Respiratory failure complication: hypoxia and hypercapnia Qualified Code(s): J96.01 - Acute respiratory failure with hypoxia; J96.02 - Acute respiratory failure with hypercapnia (2) Pneumonia Laterality: right Lung location: lower lobe of lung Pneumonia type: due to unspecified organism Qualified Code(s): J18.9 - Pneumonia, unspecified organism
[2020-07-05 07:32] LABS: Partial Thromboplastin Ratio 2.2
[2020-07-05 07:34] LABS: Partial Thromboplastin Time 62.1 Seconds (21.0-31.0)
--- NOTE | 2020-07-05 07:55 | Critical Care Progress Note ---
Date of Service July 05, 2020 Assessment & Plan (1) Acute on chronic respiratory failure with hypoxia and hypercapnia: Impression: 79-year-old female with severe kyphosis and known coronary disease admitted to the ICU with hypoxemic and hypercarbic respiratory failure requiring noninvasive positive pressure ventilation. 24-hour events: Thoracic ultrasound performed yesterday. Very small right-sided effusion noted with mostly compressive atelectasis. No thoracentesis conducted or planned. She remained on BiPAP overnight. Her blood gas this morning is better. Her cough is very rattly. She had an episode of atrial fibrillation with rapid ventricular response again requiring a repeat bolus of amiodarone her beta-dudley has been restarted. She is hemodynamically stable. Extended discussions were held with the family and I attempted to broach CODE STATUS. They took it under advisement but have not yet made a decision Recommendations: 1. Neurologic: Metabolic encephalopathy related to hypercarbia which appears to be improving. Continue to follow. 2. Cardiovascular: Atrial fibrillation with rapid ventricular response. Converted with amiodarone. Currently on 0.5 mg/h. Okay to transition to oral 200 mg daily. We will increase her beta-dudley. Continue diuretics. Anticoagulated on heparin 3. Pulmonary: Hypercarbic respiratory failure likely due to restrictive lung disease due to thoracic cage abnormalities with probable fluid overload and potential aspiration pneumonia. No plans for thoracentesis unless pleural effusion significantly increases. Continue BiPAP 15/5 nightly and when sl eeping. I did advise the family that patients with this kind of thoracic cage abnormality and hypercarbic and hypoxemic respiratory failure typically have issues with aspiration and pneumonia, and this is often the cause of their ultimate demise. 4. GI: She is tolerating p.o. medications. Speech therapy evaluation and advance diet based on speech evaluation 5. Renal: Patient was initially diuresed with increase in serum creatinine, improving today. Continue low-dose diuretics. Potassium replacement per protocol 6. Endocrine: Glycemic control per protocol. Continue Synthroid once able to take oral 7. Heme-onc: Leukocytosis improved today. She is mildly anemic but does not warrant transfusion. Continue to trend. Anticoagulation with Coumadin was reversed. There is a remote history of PE in 2010 with reported history of protein S deficiency on lifelong Coumadin. she has atrial fibrillation which gives her a second issue to require anticoagulation. She is currently on a heparin infusion. May consider restarting oral anticoagulation depending on clinical stability 8. Infectious disease: Continue rocephin for presumed pneumonia. Review of the patient's chart indicates that she is blind at baseline and ambulates with the assistance of a wheeled walker. According to her family, the patient ambulates to the restroom and then spends the majority of the day sittin g or sleeping on the couch. I strongly recommended considering CODE STATUS and not intubating this patient as I think intubating her would likely potentially result in tracheostomy which would significantly impact the quality of life which previously was declining. CPR or additional ACLS are also unlikely to be of any benefit in improving this patient's quality of life. They have taken it under advisement but have not yet made a decision. We will try and resolve grow back with them today. Palliative care consultation will be entered to try and define goals of therapy (2) Pleural effusion: (3) Diastolic CHF: (4) Admitted to intensive care unit: (5) Hypoxia: Admission and Anticipated Discharge Date Admission Date: July 03, 2020 Subjective Patient seen and examined. She is sitting up in a chair. She remains somnolent. She denies pain. She states her breathing is somewhat labored. Review of Systems Review of Systems: Unobtainable due to reduced consciousness Physical Exam Constitutional: + thin, + physical limitations, + frail appearing and + lethargic Respiratory: + labored breathing, + retractions and + uses accessory muscles Auscultation: + crackles; no wheezes Cardiovascular: RRR, no murmur, no edema Gastrointestinal (Abdomen): normal bowel sounds, soft, nontender, no hepatosplenomegaly Musculoskeletal: Extremities: extremities normal to inspection Skin: no rashes, warm and dry Lymphatic: no cervical lymphadenopathy Results & Data Results & Data ([facility]) Vital Signs (Past 12 Hours) Vital Signs Temp Pulse Resp BP Pulse Ox 07/05/20 07:19 84 156/61 H 07/05/20 06:12 37.1 C 88 32 H 132/65 88 L 07/05/20 05:12 81 37 H 131/69 90 07/05/20 04:12 36.8 C 72 26 H 113/66 93 07/05/20 03:57 145 H 07/05/20 03:24 135 H 20 115/75 92 07/05/20 03:18 137 H 32 H 105/75 90 07/05/20 03:12 93 H 36 H 131/64 89 L 07/05/20 02:12 85 28 H 138/67 90 07/05/20 01:12 69 20 140/70 94 07/05/20 00:12 36.7 C 75 14 118/64 95 07/04/20 23:59 77 07/04/20 23:12 69 24 135/68 95 07/04/20 22:10 36.7 C 86 26 H 139/66 93 07/04/20 22:06 87 26 H 92 07/04/20 21:40 87 29 H 140/68 91 07/04/20 20:59 85 36 H 137/66 82 L 07/04/20 20:10 36.7 C 88 27 H 145/69 H 88 L 07/04/20 20:00 83 Laboratory Results 07/05/20 03:57 07/05/20 03:57 Diagnostic Findings Chest x-ray today is severely rotated. There are basilar airspace opacities again identified. Potential small right effusion Coding Level of Care Code 84499 Subseq Hosp Care Lvl 3 Diagnoses Acute on chronic respiratory failure with hypoxia and hypercapnia J96.21; J96.22 Pleural effusion J90 Diastolic CHF I50.30 Admitted to intensive care unit Z78.9 Hypoxia R09.02
--- NOTE | 2020-07-05 08:19 | XRay Report ---
XR chest 1V portable CLINICAL HISTORY: Abnormal chest x-ray. Shortness of breath. COMPARISON STUDY: 07/04/2020 FINDINGS: The current study is significantly rotated. There is radiographic evidence of congestive fa ilure/fluid overload. There is a small right pleural effusion. There are persistent right basilar opa [place] atelectasis versus pneumonia. There is developing left lung opacity. This could represent a po sterior layering pleural effusion or parenchymal disease. Radiographic follow-up is recommended.[ IMPRESSION: 1. Rotated study 2. Radiographic evidence of congestive failure/fluid overload 3. Right pleural effusion with right lower lobe opacities, pneumonia versus atelectasis 4. Developing left lung opacity, posterior layering pleural effusion versus parenchymal disease. Clin ical and radiographic follow-up recommended ACT 112: Negative or not required by law. Electronically signed by: Christopher Looney M.D. 07/05/2020 8:18 AM
[2020-07-05] MEDS: cefTRIAXone SODIUM 1,000 MG in DEXTROSE 5% 50 ML IV SCH (09:45)
[2020-07-05] MEDS: AMIODARONE 200 MG TAB PO SCH (09:45)
[2020-07-05] MEDS: FUROSEMIDE 20 MG in SYRINGE 0 ML IV SCH (09:45)
[2020-07-05] MEDS: METOPROLOL TARTRATE 50 MG TAB PO SCH ×3 (09:45→20:52)
--- NOTE | 2020-07-05 09:53 | Electrocardiogram Report ---
Test Reason : Blood Pressure : / mmHG Vent. Rate : 171 BPM Atrial Rate : 156 BPM P-R Int : 000 ms QRS Dur : 074 ms QT Int : 270 ms P-R-T Axes : 000 080 -25 degrees QTc Int : 455 ms Atrial fibrillation with rapid ventricular response Nonspecific ST and T wave abnormality Abnormal ECG When compared with ECG of 02-JUL-2020 20:39, Atrial fibrillation has replaced Sinus rhythm Vent. rate has increased BY [address] now depressed in Anterior leads Nonspecific T wave abnormality, worse in Inferior leads Nonspecific T wave abnormality now evident in Lateral leads Confirmed by Guanakito Coronel ([id number]) on 07/05/2020 9:52:57 AM Referred By: REFERRED SELF Confirmed By:Guanakito Coronel
[2020-07-05] MEDS: PANTOprazole 40 MG in SYRINGE 0 ML IV SCH (11:37)
[2020-07-05] MEDS: HEPARIN SODIUM/DEXTROSE 25,000 UNITS/500 ML BAG IV SCH (15:36)
--- NOTE | 2020-07-05 16:22 | Hospitalist Progress Note ---
Date of Service July 05, 2020 Assessment & Plan (1) Acute on chronic respiratory failure with hypoxia and hypercapnia: Acute on chronic hypoxic respiratory failure: from XR appears to be secondary to aspiration vs pneumonia -off bipap, continue current care, appreciate ICU management Right-sided pleural effusion -possible thoracentesis depending on progress Atrial fibrillation with RVR -electrocardioverted earlier in hospital stay, rates now good -continue amiodarone History of PE in 2010 -currently warfarin on hold - is on heparin gtt Lower extremity edema: likely from diastolic CHF -f/u echo -continue diuretics -strict I/O's CAD -continue current meds HTN -continue current management DVT prophylaxis: anticoagulated w warfearin Code status: full code Dispo: ICU Admission and Anticipated Discharge Date Admission Date: July 03, 2020 Subjective no HPI or ROS obtainable, sitting up in chair w mask O2 on Review of Systems Review of Systems: Unobtainable due to cognitive status Physical Exam Physical Exam: sitting up in chair breathign w oxymask on appearing fatigued but comfortable no tachypnea at the time i see her. leaning to the R as has been her norm. no pallor Results & Data Results & Data ([facility]) Vital Signs (Past 12 Hours) Vital Signs Temp Pulse Resp BP Pulse Ox 07/05/20 16:05 79 26 H 91 07/05/20 15:22 82 122/66 07/05/20 11:30 80 151/62 H 07/05/20 07:19 84 156/61 H 07/05/20 06:12 98.8 F 88 32 H 132/65 88 L 07/05/20 05:12 81 37 H 131/69 90 PG Care Time/CCT Total # of Minutes Spent Total Time Spent with Patient: Total time spent is greater than 50% in coordination of care (as documented) at patient's floor/unit and/or counseling patient: Coding Level of Care Code 92809 Subseq Hosp Care Lvl 1 Diagnoses Acute on chronic respiratory failure with hypoxia and hypercapnia J96.21; J96.22
[2020-07-06 04:21] LABS: Hematocrit (blood only) 37.1 % (37-47); Immature Granulocytes # (auto) 0.02 K/uL (0.00-0.02); Immature Granulocytes % (auto) 0.2 %; Lymphocytes # (auto) 0.31 K/uL (1.2-3.4); Lymphocytes % (auto) 3.6 %; Mean Corpuscular Hemoglobin 31.3 pg (25-34); Mean Corpuscular Hgb Conc 32.3 g/dL (32-36); Mean Corpuscular Volume 96.6 fL (80-100); Monocytes # (auto) 1.06 K/uL (0.11-0.59); Monocytes % (auto) 12.3 %; Neutrophils # (auto) 7.25 K/uL (1.4-6.5); Neutrophils % (auto) 83.9 %; Platelet Count 121 K/uL (130-400); RDW Coefficient of Variation 12.7 % (11.5-14.5); RDW Standard Deviation 44.4 fL (36.4-46.3); Red Blood Count 3.84 M/uL (4.2-5.4); White Blood Count 8.64 K/uL (4.8-10.8)
[2020-07-06 04:43] LABS: Partial Thromboplastin Ratio 2.3
[2020-07-06 04:44] LABS: BUN Creatinine Ratio 33.3 (10-20); Calcium 8.8 mg/dl (8.5-10.1); Creatinine Clr Calc Pharmacy 42.3 ml/min; Est GFR (African American) 73.5; Est GFR (Non-African American) 63.4; Magnesium 2.2 mg/dl (1.8-2.4); Phosphorus 2.6 mg/dl (2.5-4.9); Potassium 3.4 mmol/L (3.5-5.1)
[2020-07-06 04:45] LABS: Partial Thromboplastin Time 64.6 Seconds (21.0-31.0)
[2020-07-06] MEDS ORDERED: POTASSIUM CHLORIDE CRTAB 20 MEQ TABCR PO STA (05:44)
[2020-07-06 05:45] LABS: iSTAT Arterial Blood Gas HCO3 37 meg/L (19-24); iSTAT Arterial Blood Gas pCO2 64 mmHg (35-46); iSTAT Arterial Blood Gas pH 7.37 (7.35-7.45); iSTAT Arterial Blood Gas pO2 77 mmHg (80-95); iSTAT Carbon Dioxide 39 mmol/L (24-31); iSTAT FiO2 65 %; iSTAT Site Art Line
[2020-07-06] MEDS: POTASSIUM CHLORIDE / WTR 10 MEQ/100 ML PLCT IV SCH ×3 (06:23→08:29)
[2020-07-06] MEDS: ICU ELECTROLYTE REPLACEMENT PROTOCOL SCH ×2 (06:49→18:46)
--- NOTE | 2020-07-06 06:52 | XRay Report ---
XR chest 1V portable HISTORY: 79 years-old Female f/u follow-up study in a patient with shortness of breath COMPARISON: Chest radiograph 07/05/2020 TECHNIQUE: Portable AP view of the chest FINDINGS: Limited exam secondary to positioning. The mid and upper right lung are obscured by the patient's chi n. Cardiomegaly. Pulmonary vascular congestion with persistent interstitial coarsening. No pneumothor ax. Unchanged bilateral pleural effusions. Bibasilar opacities with moderately improved aeration of t he left lung. Degenerative changes of the shoulders and spine. IMPRESSION: 1. Limited exam secondary to positioning. 2. Cardiomegaly with persistent pulmonary edema. 3. Bilateral pleural effusions with bibasilar opacities suggestive of atelectasis versus pneumonitis. 4. Moderately improved aeration of the left lung. ACT 112: Negative or not required by law. The above report was generated using voice recognition software. It may contain grammatical, syntax o r spelling errors. Electronically signed by: Tobin Means M.D. 07/06/2020 6:51 AM
--- NOTE | 2020-07-06 07:13 | Hospitalist Progress Note ---
Date of Service July 06, 2020 Assessment & Plan (1) Respiratory failure: 79 y/o F w/ hx of protein S deficiency and severe kyphoscoliosis who presents w/ acute on chronic respiratory failure and severe respiratory acidosis. Acute on chronic hypoxic respiratory failure w/ resulting metabolic encephalopathy - ? secondary to pneumonia with underlying chronic restrictive/mechanical contribution from severe kyphoscoliosis - continue bipap at night and oxymask 10L during day. Afternoon update: patient desatted to low 80s, so was placed on bipap during rest of day. Pneumonia - from admission XR appears to be secondary to aspiration vs pneumonia -covid negative, nasal MRSA negative 07/06 CXR: Cardiomegaly with persistent pulmonary edema. Bilateral pleural effusions with bibasilar opacities suggestive of atelectasis versus pneumonitis. Moderately improved aeration of the left lung. -continue 7 day course of IV rocephin per ICU team for presumed pneumonia. previously was on IV cefepime and metronidazole -continue bronchodilators. Bilateral pleural effusion - no plans for thoracentesis at this time Atrial fibrillation with RVR s/p emergent electrocardioversion 07/04/20 and amiodarone chemical cardioversion - continue amiodarone History of PE in 2010 -INR therapeutic, restarted warfarin. f/u PT/INR Lower extremity edema: likely from diastolic CHF -echo 07/03/20:65-70%. normal systolic fxn. mild lvh. -continue diuretics and strict I/O's CAD - continue metoprolol and simvastatin HTN - continue metoprolol and clonidine. hydralazine PRN FENGI: NPO DVT prophylaxis: restarted home warfarin, 3mg given this AM Code status: full code Dispo: ICU Goals of care Spoke w/ sister and on phone about goals of care. Brother and sister have different opinions. They will have further family discussion and let the team know tomorrow evening. Reiterated that they should make choice in best interest of the patient. (2) Pneumonia: (3) Acute respiratory acidosis: (4) Long-term (current) use of anticoagulants, INR goal 2.5-3.5: (5) Pulmonary embolism: (6) Counseling regarding goals of care: (7) HTN (hypertension): (8) CAD (coronary artery disease): (9) Protein S deficiency: Admission and Anticipated Discharge Date Admission Date: July 03, 2020 Supervising Physician Co-Signing Physician Notes Resident Physician Supervision Note: I independently interviewed and examined the patient and verified the eastman history and physical, reviewed labs and image studies, discussed the case with the resident Dr. Canales and agree with the findings and care plan. Subjective She was sleepy, but answering questions this morning. She complained of some sweating, but denied other review of systems complaints including fever, chills, chest pain, SOB. She was unsure if she had any constipation or diarrhea. Review of Systems Review of Systems: Constitutional: Denies fever, chills Cardiovascular: Denies chest pain Respiratory: Denies shortness of breath Gastrointestinal: See HPI Neurological: Denies headache Physical Exam Physical Exam: General: NAD. Cooperative. Answering questions. Thin, frail appearing. HEENT: Atraumatic, normocephalic. Pulm: High pitched inspiratory wheezes. Short breaths. Cardiac: RRR, -mrg. Radial pulses intact and symmetrical. Abdominal: Nontender, nondistended, soft. Musculoskeletal: Chronic swelling changes of LE, but is currently minimal. Severe kyphoscoliosis of back. Integumentary: Chronic dryness/wrinkles on dorsal calves. Results & Data Results & Data ([facility]) Vital Signs (Past 12 Hours) Vital Signs Temp Pulse Resp BP Pulse Ox 07/06/20 06:13 37 C 77 22 126/77 94 07/06/20 05:13 81 23 125/64 95 07/06/20 04:13 65 17 137/72 95 07/06/20 04:00 72 124/47 L 07/06/20 03:50 65 16 95 07/06/20 03:13 76 30 H 141/75 H 94 07/06/20 02:13 37 C 74 29 H 143/76 H 93 07/06/20 01:13 72 23 126/64 95 07/06/20 00:13 37 C 63 25 H 129/61 93 07/06/20 00:00 77 148/67 H 07/05/20 23:59 74 07/05/20 23:12 77 29 H 143/75 H 93 07/05/20 22:26 70 24 93 07/05/20 22:12 36.8 C 90 32 H 143/76 H 92 07/05/20 21:12 68 24 146/68 H 94 07/05/20 20:12 36.8 C 77 32 H 149/71 H 93 07/05/20 20:00 70 28 H 122/79 93 07/05/20 19:13 65 26 H 133/69 93 Resident Activity Tracking Resident Involvement: Resident Care Provided Care Provided: Adult Hospital Medicine (1) Respiratory failure Chronicity: acute Respiratory failure complication: hypoxia and hypercapnia Qualified Code(s): J96.01 - Acute respiratory failure with hypoxia; J96.02 - Acute respiratory failure with hypercapnia (2) Pneumonia Laterality: right Lung location: lower lobe of lung Pneumonia type: due to unspecified organism Qualified Code(s): J18.9 - Pneumonia, unspecified organism
[2020-07-06] MEDS: METOPROLOL TARTRATE 50 MG TAB PO SCH ×3 (07:31→20:17)
[2020-07-06] MEDS: AMIODARONE 200 MG TAB PO SCH (07:31)
[2020-07-06] MEDS: FUROSEMIDE 20 MG in SYRINGE 0 ML IV SCH (07:32)
--- NOTE | 2020-07-06 08:10 | Critical Care Progress Note ---
Date of Service July 06, 2020 Assessment & Plan (1) Acute on chronic respiratory failure with hypoxia and hypercapnia: Impression: 79-year-old female with severe kyphosis and known coronary disease admitted to the ICU with hypoxemic and hypercarbic respiratory failure requiring noninvasive positive pressure ventilation. Recommendations: 1. Neurologic: Metabolic encephalopathy related to hypercarbia which appears to be improving. Continue to follow. 2. Cardiovascular: Atrial fibrillation with rapid ventricular response. Continue oral amiodarone. Continue beta-blockade. Continue diuretics. Anticoagulated on heparin. Echocardiogram from 07/03/2020 noted and demonstrates an EF of 65 to 70%. Right ventricle was poorly visualized. Tricuspid annular plane systolic excursion was normal. We will remove the arterial line. 3. Pulmonary: Hypercarbic and hypoxemic respiratory failure likely due to restrictive lung disease due to thoracic cage abnormalities with probable fluid overload and potential aspiration pneumonia. No plans for thoracentesis unless pleural effusion significantly increases. He is still requiring significant amount of supplemental oxygen. Currently on 10 L. Continue BiPAP 15/5 nightly and when sleeping. She is at high risk for complications in the future related to her thoracic cage abnormalities and nutritional status. 4. GI: She is tolerating p.o. medications. Advancing diet based on speech therapy recommendations. 5. Renal: Patient was initially diuresed with increase in serum creatinine, improving today. Continue low-dose diuretics. Potassium replacement per protocol 6. Endocrine: Glycemic control per protocol. Continue Synthroid once able to take oral 7. Heme-onc: Anticoagulation with Coumadin was reversed previously during hospitalization. There is a remote history of PE in 2011 with reported history of protein S deficiency on lifelong Coumadin. She has atrial fibrillation which gives her a second issue to require anticoagulation. She is currently on a heparin infusion. May consider restarting oral anticoagulation depending on clinical stability. 8. Infectious disease: Continue rocephin for presumed pneumonia. Recommend a 7-day course. I will consult physical therapy and will try to see if she could participate in physical and occupational therapy. Palliative care consultation was entered yesterday. She would benefit from such consultation. She is currently still listed as a full code. (2) Pleural effusion: (3) Diastolic CHF: (4) Admitted to intensive care unit: (5) Hypoxia: Admission and Anticipated Discharge Date Admission Date: July 03, 2020 Subjective Patient is complaining that her legs and feet feel warm. Otherwise she has no significant complaints. She is currently on 2 L of supplemental oxygen via nasal cannula. She is sitting up in bed. She had a breakfast. I had a discussion with the bedside nurse to add no significant concerns at this time. Review of Systems Review of Systems: All systems reviewed & are unremarkable except as noted in HPI & below Physical Exam Constitutional: + thin, + physical limitations and + frail appearing Eyes: PERRL, conjunctivae normal, anicteric sclerae ENMT: external ear and nose normal, oropharynx normal Neck: + limited neck extension Respiratory: + labored breathing, + retractions and + uses accessory muscles Auscultation: + crackles Cardiovascular: RRR, no murmur, no edema Gastrointestinal (Abdomen): normal bowel sounds, soft, nontender, no hepatosplenomegaly Musculoskeletal: Extremities: extremities normal to inspection Severe kyphoscoliosis Skin: no rashes, warm and dry Neurologic: PERRL, EOMI, accommodation nl, no face palsy, no dysarthria Psychiatric: A+Ox3, euthymic affect Lymphatic: no cervical lymphadenopathy Results & Data Results & Data ([facility]) Vital Signs (Past 12 Hours) Vital Signs Temp Pulse Resp BP Pulse Ox 07/06/20 06:13 98.6 F 77 22 126/77 94 07/06/20 05:13 81 23 125/64 95 07/06/20 04:13 65 17 137/72 95 07/06/20 04:00 72 124/47 L 07/06/20 03:50 65 16 95 07/06/20 03:13 76 30 H 141/75 H 94 07/06/20 02:13 98.6 F 74 29 H 143/76 H 93 07/06/20 01:13 72 23 126/64 95 07/06/20 00:13 98.6 F 63 25 H 129/61 93 07/06/20 00:00 77 148/67 H 07/05/20 23:59 74 07/05/20 23:12 77 29 H 143/75 H 93 07/05/20 22:26 70 24 93 07/05/20 22:12 98.2 F 90 32 H 143/76 H 92 07/05/20 21:12 68 24 146/68 H 94 07/05/20 20:12 98.2 F 77 32 H 149/71 H 93 reviewed vital signs, labs and imaging Coding Level of Care Code 18255 Subseq Hosp Care Lvl 3 Diagnoses Acute on chronic respiratory failure with hypoxia and hypercapnia J96.21; J96.22 Pleural effusion J90 Diastolic CHF I50.30 Admitted to intensive care unit Z78.9 Hypoxia R09.02
[2020-07-06] MEDS ORDERED: LEVOTHYROXINE SODIUM 75 MCG TABLET PO ONE (09:00)
[2020-07-06] MEDS ORDERED: WARFARIN SOD 3 MG TAB PO ONE (10:00)
[2020-07-06] MEDS: cefTRIAXone SODIUM 1,000 MG in DEXTROSE 5% 50 ML IV SCH (11:16)
[2020-07-06] MEDS ORDERED: hydrALAZINE HCL 20 MG/ML VIAL IV STA (12:39)
[2020-07-06] MEDS ORDERED: hydrALAZINE HCL 20 MG/ML VIAL IV PRN (12:39)
[2020-07-06] MEDS: PANTOprazole 40 MG in SYRINGE 0 ML IV SCH (12:48)
[2020-07-06] MEDS: HEPARIN SODIUM/DEXTROSE 25,000 UNITS/500 ML BAG IV SCH (12:48)
--- NOTE | 2020-07-06 16:52 | Palliative Care Consultation ---
Date of Consultation July 06, 2020 Assessment & Plan (1) Palliative care encounter: This is a 79 year old who has been admitted to the [facility] from home with hypoxemia. She has significant PMH that includes: CAD, HTN, Protein S deficiency on chronic anticoagulation, HLD, COPD, macular degeneration (legally blind) and significant kyphosis. The patient had an SpO2 in the 60's on admission and was subsequently admitted to the ICU and has been requiring NIPPS. A thoracic ultrasound was performed on July 03 with results indicating a right pleural effusion and atelectasis. She is receiving Rocephin for treatment of an underlying PNA. The patient had severe respiratory acidosis. Her ABG is showing some improving changes, but ultimately, she has kyphosis and a poor anatomy that never will allow good oxygen exchange. Most recent ABG results are: pH 7.37, CO2 64, HCO3 37. She has had some A-fib with RVR over the past few days for which she was on an Amiodarone gtt, now converted to PO. She has been working with PT and was OOB to her chair the past few days. Today, around lunchtime, her SpO2 dropped significantly, into the 60's. She initially was on 10L oxymask and then was placed back on Bipap, and has been on Bipap since. Family has been made abreast that patients with this kind of thoracic cage abnormality and hypercarbic and hypoxemic respiratory failure typically have issues with aspiration and PNA, leading to their typical presentation and demise. At baseline, this patient does ambulate with assistance of a wheeled walker, which is hard to picture today. The Coal Conveyor Operator have discussed quality of life and code status with family on numerous occasions, going into details regarding an eventual intubation likely leading to a permanent tracheostomy and the un-likelihood that CPR or any ACLS intervention would prove beneficial in her condition. Palliative Care was consulted to discuss goals of care. -I met with the patient in the ICU, room 108. The patients son, Zaid, just had left the room after a visit. -The patient was in -The patient did open her eyes, but was somnolent while I was in the room. -The patient was on BiPAP. SpO2 94% -I talked with the patients nurse, Gregory, who mentioned that she has shown some decline over the past 8 hours after her desaturation earlier today. She has not attempted to eat food since the desaturation, but he did say that she eats relatively well, despite her deformities. -I phoned the patients daughter, Leeanne to discuss her current condition, specifically her code status. -I did explain that her respiratory drive is worse than earlier and explained that if she would decline and require intubation, it would be unlikely that she would be extubated successfully, unless for a compassionate/terminal reason, which, at that point, would need to be a decision made by family. -I discussed that transitioning to a DNR/DNI does not indicate that other treatment would have to cease at this time, just if she would worsen, we would not interrupt the natural process, but instead, would focus on comfort measures instead. -Leeanne agreed that a family meeting with her brother, the patients , and one sibling would be best. She said she will contact family tonight and will determine a day/time to discuss. -For now, should the patient decline overnight, CPR/ACLS and intubation ok - pt to remain a Full Code. This was discussed with nursing. -Palliative care will follow up on 07/07 in the AM to determine a family meeting time. -PPS: 30% (2) Acute on chronic respiratory failure with hypoxia and hypercapnia: (3) Diastolic CHF: (4) Acute respiratory acidosis: History of Present Illness Reason for Consultation: Goals of Care Requesting Physician: Dr. Alvarez Attending Physician: Jemima Ayala MD History of Present Illness This is a 79 year old who has been admitted to the [facility] from home with hypoxemia. She has significant PMH that includes: CAD, HTN, Protein S deficiency on chronic anticoagulation, HLD, COPD, macular degeneration (legally blind) and significant kyphosis. The patient had an SpO2 in the 60's on admission and was subsequently admitted to the ICU and has been requiring NIPPS. A thoracic ultrasound was performed on July 03 with results indicating a right pleural effusion and atelectasis. She is receiving Rocephin for treatment of an underlying PNA. The patient had severe respiratory acidosis. Her ABG is showing some improving changes, but ultimately, she has kyphosis and a poor anatomy that never will allow good oxygen exchange. Most recent ABG results are: pH 7.37, CO2 64, HCO3 37. She has had some A-fib with RVR over the past few days for which she was on an Amiodarone gtt, now converted to PO. She has been working with PT and was OOB to her chair the past few days. Today, around lunchtime, her SpO2 dropped significantly, into the 60's. She initially was on 10L oxymask and then was placed back on Bipap, and has been on Bipap since. Family has been made abreast that patients with this kind of thoracic cage abnormality and hypercarbic and hypoxemic respiratory failure typically have issues with aspiration and PNA, leading to their typical presentation and demise. At baseline, this patient does ambulate with assistance of a wheeled walker, which is hard to picture today. The Coal Conveyor Operator have discussed quality of life and code status with family on numerous occasions, going into details regarding an eventual intubation likely leading to a permanent tracheostomy and the un-likelihood that CPR or any ACLS intervention would prove beneficial in her condition. Palliative Care was consulted to discuss goals of care. Please see A/P for further details. Thank you for involving the Palliative Care Consultation team with this patient. We will continue to follow and offer support for the family. Allergies Allergy/AdvReac Type Severity Reaction Status Date / Time ibuprofen [From Advil] Allergy Mild Rash Verified 07/02/20 23:21 piperacillin [From Zosyn] Allergy Mild Rash Verified 07/02/20 23:21 tazobactam [From Zosyn] Allergy Mild Rash Verified 07/02/20 23:21 aspirin AdvReac Mild VOMITING Verified 07/02/20 23:21 Home Medications Home Medications Medication Instructions Recorded Confirmed Type furosemide 40 mg tablet 40 mg PO DAILY #90 tab 07/18/19 07/02/20 Rx metoprolol tartrate 100 mg tablet 100 mg PO BID #180 tab 07/18/19 07/02/20 Rx potassium chloride 20 mEq 40 meq PO DAILY #180 tab 07/18/19 07/02/20 Rx tablet,extended release(part/cryst) simvastatin 80 mg tablet 80 mg PO HS #90 tab 07/18/19 07/02/20 Rx warfarin 1 mg tablet 1 mg PO UD #60 tab 07/18/19 07/02/20 Rx clonidine HCl 0.2 mg tablet 0.2 mg PO Q12H #180 tab 05/26/20 07/02/20 Rx levothyroxine 25 mcg tablet See Rx Instructions PO DIRECTED 06/29/20 07/02/20 Rx #240 tab Patient History Medical History (Updated 07/06/20 @ 18:32 by PRAMOD Jackson) Blind HTN (hypertension) Hypertension Lower GI bleed Palliative care encounter Surgical History H/O breast surgery H/O: hysterectomy History of appendectomy History of hip surgery Social History Smoking Status: Unknown if ever smoked Preferred Language: Welsh Communication Ability: Unable Communication Ability Comment: blind Visual Impairment: Blindness Purchasing Intern Required: No Beliefs That Will Affect Care: None Current Living Situation: Spouse Current Living Situation Comment: lives w/ Feels Safe at Home: Yes Assistive Devices: Oxygen - Continuous Review of Systems Review of Systems: Unobtainable due to reduced consciousness Physical Exam Constitutional: + acute distress, + ill appearing and + frail appearing Respiratory: + labored breathing, + uses accessory muscles and + grunting Auscultation: + rales Cardiovascular: Rate/Rhythm: regular rate and regular rhythm Heart Sounds: normal S1 and normal S2 Extremities: normal capillary refill and + edema (bilateral LE) Gastrointestinal (Abdomen): normal bowel sounds, soft, nontender, no hepatosplenomegaly Skin: + skin tightening lymphedema lower extremities Psychiatric: Orientation: alert; + not oriented x 3 Genitourinary: indwelling staley catheter Lymphatic: + lymphedema (bilateral lower extremities ) Results & Data ([facility]) Vital Signs (Past 12 Hours) Vital Signs Temp Pulse Resp BP Pulse Ox 07/06/20 15:30 61 28 H 90 07/06/20 15:23 85 L 07/06/20 15:13 71 34 H 138/73 89 L 07/06/20 15:00 87 37 H 82 L 07/06/20 14:30 66 29 H 91 07/06/20 14:13 80 35 H 144/69 H 90 07/06/20 14:00 76 38 H 91 07/06/20 13:30 81 32 H 90 07/06/20 13:13 79 33 H 136/73 90 07/06/20 13:00 82 28 H 91 07/06/20 12:30 66 26 H 94 07/06/20 12:13 70 29 H 165/73 H 91 07/06/20 12:10 78 30 H 153/74 H 89 L 07/06/20 12:00 37.1 C 83 35 H 89 L 07/06/20 11:30 77 33 H 86 L 07/06/20 11:13 72 36 H 153/74 H 87 L 07/06/20 11:00 70 23 85 L 07/06/20 10:30 65 32 H 88 L 07/06/20 10:13 76 24 158/85 H 88 L 07/06/20 10:00 72 28 H 93 07/06/20 09:30 71 28 H 89 L 07/06/20 09:15 72 37 H 92 07/06/20 09:13 69 33 H 154/85 H 92 07/06/20 09:00 69 35 H 91 07/06/20 08:45 73 37 H 92 07/06/20 08:30 78 32 H 91 07/06/20 08:15 84 37 H 90 07/06/20 08:13 85 38 H 135/73 90 07/06/20 08:00 89 34 H 88 L 07/06/20 07:45 88 35 H 88 L 07/06/20 07:30 37.2 C 86 35 H 85 L 07/06/20 07:15 80 24 85 L 07/06/20 07:13 81 29 H 151/77 H 86 L 07/06/20 07:00 90 37 H 87 L 07/06/20 06:13 37 C 77 22 126/77 94 07/06/20 05:13 81 23 125/64 95 PG Care Time/CCT Total # of Minutes Spent Total Time Spent with Patient: Total time spent is greater than 50% in coordination of care (as documented) at patient's floor/unit and/or counseling patient: 100 Coding Level of Care Code 94272 Inpt Consult Level 4 Diagnoses Palliative care encounter Z51.5 Acute on chronic respiratory failure with hypoxia and hypercapnia J96.21; J96.22 Diastolic CHF I50.30 Acute respiratory acidosis E87.2 Time Spent (min) 100 Time Spent Midlevel Total time spent 100 minutes with > 50% of that time spent assessing the patient, discussing goals of care with the patients family on the phone, and discussing with IDT.
[2020-07-06] MEDS: SIMVASTATIN 20 MG TAB PO SCH (20:17)
[2020-07-07 05:08] LABS: Basophils # (auto) 0.01 K/uL (0-0.2); Basophils % (auto) 0.1 %; Hematocrit (blood only) 41.4 % (37-47); Hemoglobin 13.5 g/dL (12.0-16.0); Immature Granulocytes # (auto) 0.05 K/uL (0.00-0.02); Immature Granulocytes % (auto) 0.6 %; Lymphocytes # (auto) 0.93 K/uL (1.2-3.4); Lymphocytes % (auto) 10.7 %; Mean Corpuscular Hemoglobin 32.4 pg (25-34); Mean Corpuscular Hgb Conc 32.6 g/dL (32-36); Mean Corpuscular Volume 99.3 fL (80-100); Monocytes # (auto) 0.62 K/uL (0.11-0.59); Monocytes % (auto) 7.1 %; Neutrophils # (auto) 7.08 K/uL (1.4-6.5); Neutrophils % (auto) 81.5 %; Platelet Count 121 K/uL (130-400); RDW Coefficient of Variation 12.7 % (11.5-14.5); RDW Standard Deviation 46.2 fL (36.4-46.3); Red Blood Count 4.17 M/uL (4.2-5.4); White Blood Count 8.69 K/uL (4.8-10.8)
[2020-07-07 05:22] LABS: INR 3.5 (0.9-1.1); Prothrombin Time 34.7 Seconds (9.0-12.0)
[2020-07-07 05:57] LABS: iSTAT Arterial Blood Gas HCO3 44 meg/L (19-24); iSTAT Arterial Blood Gas pCO2 57 mmHg (35-46); iSTAT Arterial Blood Gas pO2 104 mmHg (80-95); iSTAT Carbon Dioxide > 40 mmol/L (24-31); iSTAT FiO2 65 %; iSTAT Site Art Line
[2020-07-07 05:58] LABS: Albumin Level 2.6 gm/dl (3.4-5.0); Bilirubin Direct 0.2 mg/dl (0-0.2); Bilirubin,Total 0.5 mg/dl (0.2-1); Calcium 9.4 mg/dl (8.5-10.1); Creatinine Clr Calc Pharmacy 49.7 ml/min; Est GFR (African American) 89.1; Est GFR (Non-African American) 76.9; Magnesium 2.1 mg/dl (1.8-2.4); Phosphorus 2.6 mg/dl (2.5-4.9); Total Protein 6.3 gm/dl (6.4-8.2)
[2020-07-07 06:00] LABS: Partial Thromboplastin Ratio 3.4
[2020-07-07] MEDS: LEVOTHYROXINE SODIUM 50 MCG TABLET PO SCH (06:03)
[2020-07-07 06:07] LABS: Partial Thromboplastin Time 94.2 Seconds (21.0-31.0)
[2020-07-07] MEDS: ICU ELECTROLYTE REPLACEMENT PROTOCOL SCH ×2 (06:15→18:58)
[2020-07-07] MEDS: AMIODARONE 200 MG TAB PO SCH (07:38)
--- NOTE | 2020-07-07 07:38 | XRay Report ---
XR chest 1V portable CLINICAL HISTORY: Respiratory distress. Follow-up study. COMPARISON STUDY: 07/06/2020 FINDINGS: The study is slightly limited from a positioning standpoint. The cardiac and mediastinal co ntours remain stable. There are persistent bilateral pleural effusions with persistent basilar atelec tasis/consolidation. Mild bony vascular congestion is suspected.[ IMPRESSION: Persistent mild pulmonary vascular congestion. Bilateral pleural effusions with associate d basilar opacities. ACT 112: Negative or not required by law. Electronically signed by: Christopher Looney M.D. 07/07/2020 7:37 AM
[2020-07-07] MEDS: PANTOprazole 40 MG TAB PO SCH (07:39)
[2020-07-07] MEDS: METOPROLOL TARTRATE 50 MG TAB PO SCH ×3 (07:39→20:29)
[2020-07-07] MEDS: FUROSEMIDE 20 MG in SYRINGE 0 ML IV SCH (07:39)
--- NOTE | 2020-07-07 08:30 | Critical Care Progress Note ---
Date of Service July 07, 2020 Assessment & Plan (1) Acute on chronic respiratory failure with hypoxia and hypercapnia: Impression: 79-year-old female with severe kyphosis and known coronary disease admitted to the ICU with hypoxemic and hypercarbic respiratory failure requiring noninvasive positive pressure ventilation. Recommendations: 1. Neurologic: Lethargic from her chronic illness and acute illness. 2. Cardiovascular: Atrial fibrillation with rapid ventricular response. Continue oral amiodarone. Continue beta-blockade. Currently on warfarin with therapeutic INR. Echocardiogram from 07/03/2020 noted and demonstrates an EF of 65 to 70%. Right ventricle was poorly visualized. Tricuspid annular plane systolic excursion was normal. Continue the arterial line for now given her high oxygen demands. 3. Pulmonary: Hypercarbic and hypoxemic respiratory failure likely due to restrictive lung disease due to thoracic cage abnormalities with probable fluid overload and potential aspiration pneumonia. No plans for thoracentesis unless pleural effusion significantly increases. He is still requiring significant amount of supplemental oxygen. Continue BiPAP 15/5 nightly and when sleeping. She is at high risk for complications in the future related to her thoracic cage abnormalities and nutritional status. She has severe chronic hypercapnic respiratory failure with compensatory metabolic alkalosis. I am starting her on acetazolamide. I am discontinuing the Lasix for today. 4. GI: She is tolerating p.o. medications. Nutritional intake has been very limited due to dyspnea. 5. Renal: She is developing a severe metabolic alkalosis. We will stop Lasix and start her on acetazolamide. Continue BiPAP nightly and as needed given her underlying chronic hypercapnic respiratory failure. 6. Endocrine: Glycemic control per protocol. 7. Heme-onc: There is a remote history of PE in 2010 with reported history of protein S deficiency on lifelong Coumadin. She has atrial fibrillation which gives her a second issue to require anticoagulation. Discontinuing the heparin drip and continue warfarin. INR is 3.5. 8. Infectious disease: Continue rocephin for presumed pneumonia. Recommend a 7-day course. I will consult physical therapy and will try to see if she could participate in physical and occupational therapy. Palliative care is following the patient. She remains a full code. I did have a discussion with the patient at bedside and asked her about intubation. She indicated that she would not want to be intubated in the event of a respiratory arrest. We will discuss this with the family as well. (2) Pleural effusion: (3) Diastolic CHF: (4) Admitted to intensive care unit: (5) Hypoxia: Admission and Anticipated Discharge Date Admission Date: July 03, 2020 Subjective Patient continues to require 15 L of oxygen via oxygen mask. She is lethargic today, but answers questions appropriately. She denies any nausea, vomiting or chest pain. She desaturates easily with movement. Review of Systems Review of Systems: All systems reviewed & are unremarkable except as noted in HPI & below Physical Exam Constitutional: + thin, + physical limitations and + frail appearing Eyes: PERRL, conjunctivae normal, anicteric sclerae ENMT: external ear and nose normal, oropharynx normal Neck: + limited neck extension Respiratory: + labored breathing, + retractions and + uses accessory muscles Auscultation: + crackles Cardiovascular: RRR, no murmur, no edema Gastrointestinal (Abdomen): normal bowel sounds, soft, nontender, no hepatosplenomegaly Musculoskeletal: Extremities: extremities normal to inspection Severe kyphoscoliosis Skin: no rashes, warm and dry Neurologic: PERRL, EOMI, accommodation nl, no face palsy, no dysarthria Psychiatric: A+Ox3, euthymic affect Lymphatic: no cervical lymphadenopathy Results & Data Results & Data ([facility]) Vital Signs (Past 12 Hours) Vital Signs Temp Pulse Resp BP Pulse Ox 07/07/20 06:13 71 38 H 121/61 88 L 07/07/20 05:13 74 26 H 136/68 92 07/07/20 04:13 97.5 F L 79 30 H 119/71 94 07/07/20 03:13 76 24 161/77 H 96 07/07/20 03:12 77 36 H 95 07/07/20 02:13 70 22 150/75 H 95 07/07/20 01:13 59 L 31 H 147/63 H 93 07/07/20 00:13 97.5 F L 65 37 H 131/64 92 07/06/20 23:13 61 29 H 161/88 H 93 07/06/20 22:13 78 25 H 128/83 94 07/06/20 22:05 79 35 H 94 07/06/20 21:13 78 30 H 154/88 H 95 reviewed vital signs, labs and imaging Coding Level of Care Code Critical Care 1st 30-74 mins Diagnoses Acute on chronic respiratory failure with hypoxia and hypercapnia J96.21; J96.22 Pleural effusion J90 Diastolic CHF I50.30 Admitted to intensive care unit Z78.9 Hypoxia R09.02 Time Spent (min) 36
--- NOTE | 2020-07-07 09:25 | Hospitalist Progress Note ---
Date of Service July 07, 2020 Assessment & Plan (1) Respiratory failure: 79 y/o F w/ hx of protein S deficiency and severe kyphosis who presents w/ acute on chronic respiratory failure and severe respiratory acidosis. Continuing to need high amounts of supp O2 and respiratory status not ideal. Acute on chronic hypoxic respiratory failure w/ resulting metabolic encephalopathy - ? secondary to pneumonia with underlying chronic restrictive/mechanical contribution from severe kyphosis - continue BiPAP, oxymask, high flow nasula O2, alternating depending on needs. - goals of care in discussion with family. Pneumonia - from admission XR appears to be secondary to aspiration vs pneumonia -covid negative, nasal MRSA negative 07/06 CXR: Cardiomegaly with persistent pulmonary edema. Bilateral pleural effusions with bibasilar opacities suggestive of atelectasis versus pneumonitis. Moderately improved aeration of the left lung. -continue 7 day course of IV rocephin per ICU team for presumed pneumonia. prev iously was on IV cefepime and metronidazole -continue bronchodilators. Bilateral pleural effusion - no plans for thoracentesis at this time Atrial fibrillation with RVR s/p emergent electrocardioversion 07/04/20 and amiodarone chemical cardioversion - continue amiodarone History of PE in 2010 -INR therapeutic, restarted warfarin. f/u PT/INR. 07/07/20 INR 3.2 Lower extremity edema: likely from diastolic CHF -echo 07/03/20:65-70%. normal systolic fxn. mild lvh. -continue diuretics and strict I/O's. -per icu note, switching from lasix to acetazolamide for metabolic alkalosis CAD - continue metoprolol and simvastatin HTN - continue metoprolol and clonidine. hydralazine PRN FENGI: NPO. ICU electrolyte replacement protocol. DVT prophylaxis: restarted home warfarin, 3mg Code status: DNR/DNI (changed on 07/07/20). ICU team met w/ family today. palliative care will meet w/ family on 07/09/20 Dispo: ICU (2) Pneumonia: (3) Acute respiratory acidosis: (4) Long-term (current) use of anticoagulants, INR goal 2.5-3.5: (5) Pulmonary embolism: (6) Counseling regarding goals of care: (7) HTN (hypertension): (8) CAD (coronary artery disease): (9) Protein S deficiency: Admission and Anticipated Discharge Date Admission Date: July 03, 2020 Supervising Physician Co-Signing Physician Notes Resident Physician Supervision Note: I independently interviewed and examined the patient and verified the eastman history and physical, reviewed labs and image studies, discussed the case with the resident Dr. Canales and agree with the findings and care plan. Subjective The patient is sleepy, but responding to questions with simple yes or no. She was unable to answer questions about goals of care. She is on high flow NC 40L O2 at this time. Review of Systems Review of Systems: Constitutional: Denies fever, chills, Cardiovascular: Denies chest pain Respiratory: Denies shortness of breath Neurological: Denies headache Physical Exam Physical Exam: General: A&Ox3 to name, year, and location ([facility]). Somnolent, drifts back to sleep. Pulm: Labored short breaths, no wheezng. Cardiac: RRR, no murmurs, rubs, or gallops. Abdominal: Nontender, nondistended, soft. Musculoskeletal: L wrist in brace. Chronic lower extremity swelling changes, swelling is mild at this time. Severe kyphosis. Integumentary: Chronic lower extremity dryness/severe wrinkling skin changes. Results & Data Results & Data ([facility]) Vital Signs (Past 12 Hours) Vital Signs Temp Pulse Resp BP Pulse Ox 07/07/20 06:13 71 38 H 121/61 88 L 07/07/20 05:13 74 26 H 136/68 92 07/07/20 04:13 36.4 C L 79 30 H 119/71 94 07/07/20 03:13 76 24 161/77 H 96 07/07/20 03:12 77 36 H 95 07/07/20 02:13 70 22 150/75 H 95 07/07/20 01:13 59 L 31 H 147/63 H 93 07/07/20 00:13 36.4 C L 65 37 H 131/64 92 07/06/20 23:13 61 29 H 161/88 H 93 07/06/20 22:13 78 25 H 128/83 94 07/06/20 22:05 79 35 H 94 Resident Activity Tracking Resident Involvement: Resident Care Provided Care Provided: Adult Hospital Medicine (1) Respiratory failure Chronicity: acute Respiratory failure complication: hypoxia and hypercapnia Qualified Code(s): J96.01 - Acute respiratory failure with hypoxia; J96.02 - Acute respiratory failure with hypercapnia (2) Pneumonia Laterality: right Lung location: lower lobe of lung Pneumonia type: due to unspecified organism Qualified Code(s): J18.9 - Pneumonia, unspecified organism
[2020-07-07] MEDS: acetaZOLAMIDE 250 MG in DEXTROSE 5% 100 ML IV SCH ×2 (10:21→20:29)
[2020-07-07] MEDS: cefTRIAXone SODIUM 1,000 MG in DEXTROSE 5% 50 ML IV SCH (10:22)
--- NOTE | 2020-07-07 11:19 | Palliative Care Progress Note ---
Date of Service July 07, 2020 Assessment & Plan (1) Palliative care encounter: -The patient was in her room, on Bipap. The patient was pretty sleepy when I visited with her. -Pt remains on BiPAP FiO2 0.60 -I did talk with Dr. Royal regarding her code status. He did have a conversation with the patient this morning regarding intubation and she did say 'no'. -I did call and talk to the patients daughter, Leeanne, regarding goals of care and setting up a family meeting. She stated that she would like a meeting with her, her father, Sheldon, and Aunt Eleanor on at 1430. -I did indicate that making a decision about code status would be helpful prior to then. She did say that if she was able to say what she wanted on her own will, that they support her being DNR/DNI. -Further discussion held with Dr. Royal who feels confident with her ability to understand his discussion. Patient is changed to a DNR/DNI in the computer. -Continuation of conversation would still be helpful and a family meeting would still be recommended. Family meeting scheduled for 07/09/20 at 1430. -PPS: 30% (2) Acute on chronic respiratory failure with hypoxia and hypercapnia: (3) Diastolic CHF: (4) Acute respiratory acidosis: Admission and Anticipated Discharge Date Admission Date: July 03, 2020 Subjective She was sleepy, but answering questions this morning. She complained of some sweating, but denied other review of systems complaints including fever, chills, chest pain, SOB. She was unsure if she had any constipation or diarrhea. Review of Systems Review of Systems: All systems reviewed & are unremarkable except as noted in HPI & below Physical Exam Constitutional: + acute distress, + ill appearing and + frail appearing Respiratory: + labored breathing, + uses accessory muscles and + grunting Auscultation: + rales Cardiovascular: Rate/Rhythm: regular rate and regular rhythm Heart Sounds: normal S1 and normal S2 Extremities: normal capillary refill and + edema (bilateral LE) Gastrointestinal (Abdomen): normal bowel sounds, soft, nontender, no hepatosplenomegaly Skin: + skin tightening Psychiatric: Orientation: alert; + not oriented x 3 Lymphatic: + lymphedema (bilateral lower extremities ) Results & Data ([facility]) Vital Signs (Past 12 Hours) Vital Signs Temp Pulse Pulse Resp BP Pulse Ox 07/07/20 09:36 60 18 95 07/07/20 09:13 64 25 H 138/80 96 07/07/20 09:00 73 19 94 07/07/20 08:30 86 38 H 85 L 07/07/20 08:13 93 H 33 H 139/63 82 L 07/07/20 08:00 92 H 36 H 82 L 07/07/20 07:30 36.7 C 82 33 H 89 L 07/07/20 07:13 81 31 H 144/73 H 88 L 07/07/20 07:00 67 33 H 88 L 07/07/20 06:13 71 38 H 121/61 88 L 07/07/20 05:13 74 26 H 136/68 92 07/07/20 04:13 36.4 C L 79 30 H 119/71 94 07/07/20 03:13 76 24 161/77 H 96 07/07/20 03:12 77 36 H 95 07/07/20 02:13 70 22 150/75 H 95 07/07/20 01:13 59 L 31 H 147/63 H 93 07/07/20 00:13 36.4 C L 65 37 H 131/64 92 PG Care Time/CCT Total # of Minutes Spent Total Time Spent with Patient: Total time spent is greater than 50% in coordination of care (as documented) at patient's floor/unit and/or counseling patient: 45 Coding Level of Care Code 25251 Subseq Hosp Care Lvl 3 Diagnoses Palliative care encounter Z51.5 Acute on chronic respiratory failure with hypoxia and hypercapnia J96.21; J96.22 Diastolic CHF I50.30 Acute respiratory acidosis E87.2 Time Spent (min) 45 Time Spent Midlevel Total time spent 45 minutes with > 50% of that time spent assessing the patient, discussing goals of care with the family and collaborating with the IDT.
--- NOTE | 2020-07-07 13:13 | Communication Note ---
Date of Service: July 07, 2020 I had a discussion with the patient's daughter, Leeanne Andrews, regarding the patient's CODE STATUS. The patient indicated to me earlier today that in the event that she had a respiratory arrest or cardiac arrest she would not want resuscitation such as CPR or endotracheal intubation. After discussion with the daughter, we are going to change the patient's CODE STATUS to a DNR/DNI. The patient's daughter Leeanne and possibly Eleanor will likely reconvene and come visit her mother at 2:30 PM today to discuss further goals of care. There is also a meeting scheduled for with palliative care. Coding Level of Care Code Critical Care 1st 30-74 mins Time Spent (min) 15
[2020-07-07 13:54] LABS: Partial Thromboplastin Ratio 2.5
[2020-07-07 14:32] LABS: Partial Thromboplastin Time 70.5 Seconds (21.0-31.0)
[2020-07-07 15:03] LABS: iSTAT Arterial Blood Gas HCO3 45 meg/L (19-24); iSTAT Arterial Blood Gas pCO2 77 mmHg (35-46); iSTAT Arterial Blood Gas pH 7.38 (7.35-7.45); iSTAT Arterial Blood Gas pO2 64 mmHg (80-95); iSTAT Carbon Dioxide > 40 mmol/L (24-31); iSTAT FiO2 60 %; iSTAT Site Art Line
[2020-07-07] MEDS: SIMVASTATIN 20 MG TAB PO SCH (20:29)
[2020-07-08 04:47] LABS: Hematocrit (blood only) 42.3 % (37-47); Hemoglobin 12.9 g/dL (12.0-16.0); Mean Corpuscular Hgb Conc 30.5 g/dL (32-36); Mean Corpuscular Volume 101.7 fL (80-100); Mean Platelet Volume 11.1 fL (7.4-10.4); Platelet Count 128 K/uL (130-400); RDW Coefficient of Variation 12.6 % (11.5-14.5); RDW Standard Deviation 47.3 fL (36.4-46.3); Red Blood Count 4.16 M/uL (4.2-5.4); White Blood Count 10.02 K/uL (4.8-10.8)
[2020-07-08 05:05] LABS: INR 4.6 (0.9-1.1); Prothrombin Time 44.9 Seconds (9.0-12.0)
[2020-07-08 05:24] LABS: BUN Creatinine Ratio 40.7 (10-20); Calcium 9.5 mg/dl (8.5-10.1); Est GFR (African American) 92.1; Est GFR (Non-African American) 79.4; Magnesium 2.1 mg/dl (1.8-2.4); Phosphorus 2.3 mg/dl (2.5-4.9); Potassium 3.1 mmol/L (3.5-5.1)
[2020-07-08 05:39] LABS: iSTAT Allen Test Pass; iSTAT Arterial Blood Gas HCO3 46 meg/L (19-24); iSTAT Arterial Blood Gas pCO2 80 mmHg (35-46); iSTAT Arterial Blood Gas pH 7.37 (7.35-7.45); iSTAT Arterial Blood Gas pO2 62 mmHg (80-95); iSTAT Carbon Dioxide > 40 mmol/L (24-31); iSTAT Site R Radial
[2020-07-08] MEDS ORDERED: POT PHOSPHATE MONOBASIC W/ SOD TAB PO SCH (05:45)
[2020-07-08] MEDS: POTASSIUM CHLORIDE CRTAB 20 MEQ TABCR PO SCH ×2 (06:04→10:08)
[2020-07-08] MEDS: ICU ELECTROLYTE REPLACEMENT PROTOCOL SCH (06:05)
[2020-07-08] MEDS: LEVOTHYROXINE SODIUM 75 MCG TABLET PO SCH (06:06)
[2020-07-08] MEDS ORDERED: POTASSIUM PHOS 3 MMOL/1 ML INFUSION IV STA ×2 (06:09→08:28)
[2020-07-08] MEDS ORDERED: POTASSIUM CHLORIDE CRTAB 20 MEQ TABCR PO STA (06:15)
[2020-07-08] MEDS ORDERED: POTASSIUM PHOSPHATE 21 MMOL in SODIUM CHLORIDE 0.9% 500 ML IV ONE (06:30)
[2020-07-08] MEDS: POTASSIUM CHLORIDE / WTR 10 MEQ/100 ML PLCT IV SCH ×2 (06:40→06:53)
--- NOTE | 2020-07-08 07:27 | XRay Report ---
XR chest 1V portable CLINICAL HISTORY: Shortness of breath. Abnormal chest x-ray. Follow-up study. COMPARISON STUDY: 07/07/2020 FINDINGS: The cardiac and mediastinal contours remain stable. There are persistent bilateral pleural effusions with associated basilar opacities likely representing compressive atelectasis. Underlying e mphysema is suspected. There is resolving pulmonary vascular congestion.[ IMPRESSION: Persistent bilateral pleural effusions with associated basilar opacities. Resolving pulmo nary vascular congestion. ACT 112: Negative or not required by law. Electronically signed by: Christopher Looney M.D. 07/08/2020 7:25 AM
--- NOTE | 2020-07-08 08:34 | Critical Care Progress Note ---
Date of Service July 08, 2020 Assessment & Plan (1) Acute on chronic respiratory failure with hypoxia and hypercapnia: Impression: 79-year-old female with severe kyphosis and known coronary disease admitted to the ICU with hypoxemic and hypercarbic respiratory failure requiring noninvasive positive pressure ventilation. Recommendations: 1. Neurologic: Lethargic from her chronic illness and acute illness. 2. Cardiovascular: Atrial fibrillation with rapid ventricular response. Continue oral amiodarone. Continue beta-blockade. Currently on warfarin with therapeutic INR. Echocardiogram from 07/03/2020 noted and demonstrates an EF of 65 to 70%. Right ventricle was poorly visualized. Tricuspid annular plane systolic excursion was normal. 3. Pulmonary: Hypercarbic and hypoxemic respiratory failure likely due to restrictive lung disease due to thoracic cage abnormalities with probable fluid overload and potential aspiration pneumonia. No plans for thoracentesis unless pleural effusion significantly increases. He is still requiring significant amount of supplemental oxygen. Continue BiPAP 15/5 nightly and when sleeping. She is at high risk for complications in the future related to her thoracic cage abnormalities and nutritional status. She has severe chronic hypercapnic respiratory failure with compensatory metabolic alkalosis. Continue acetazolamide. Holding Lasix today. 4. GI: She is tolerating p.o. medications. Nutritional intake has been very limited due to dyspnea. 5. Renal: She continues to have a severe metabolic alkalosis. Continue acetazolamide. Continue BiPAP nightly and as needed given her underlying chronic hypercapnic respiratory failure. Replacing electrolytes accordingly. 6. Endocrine: Glycemic control per protocol. 7. Heme-onc: There is a remote history of PE in 2011 with reported history of protein S deficiency on lifelong Coumadin. She has atrial fibrillation which gives her a second issue to require anticoagulation. INR is 4.6. Holding warfarin. 8. Infectious disease: Continue rocephin for presumed pneumonia. Recommend a 7-day course. I think the patient is approaching end-of-life care. I had a discussion with the family yesterday. She was made a DNR/DNI. Palliative care is following the patient. I think she is safe to be transferred to the floor at this time as there are no significant critical care needs. (2) Pleural effusion: (3) Diastolic CHF: (4) Admitted to intensive care unit: (5) Hypoxia: Admission and Anticipated Discharge Date Admission Date: July 03, 2020 Subjective Patient is very lethargic today. She is requiring 2 L of oxygen via oxygen mask. Saturations of 90%. She is less responsive today but alert. Review of Systems Review of Systems: Unobtainable due to reduced consciousness Physical Exam Constitutional: + thin, + physical limitations and + frail appearing Eyes: PERRL, conjunctivae normal, anicteric sclerae ENMT: external ear and nose normal, oropharynx normal Neck: + limited neck extension Respiratory: + labored breathing, + retractions and + uses accessory muscles Auscultation: + crackles Cardiovascular: RRR, no murmur, no edema Gastrointestinal (Abdomen): normal bowel sounds, soft, nontender, no hepatosplenomegaly Musculoskeletal: Extremities: extremities normal to inspection Severe kyphoscoliosis Skin: no rashes, warm and dry Neurologic: PERRL, EOMI, accommodation nl, no face palsy, no dysarthria Psychiatric: A+Ox3, euthymic affect Lymphatic: no cervical lymphadenopathy Results & Data Results & Data ([facility]) Vital Signs (Past 12 Hours) Vital Signs Temp Pulse Resp BP Pulse Ox 07/08/20 06:48 85 19 172/82 H 90 07/08/20 05:48 81 41 H 141/78 H 92 07/08/20 04:48 97.9 F 68 30 H 150/72 H 93 07/08/20 03:48 67 33 H 162/74 H 94 07/08/20 03:26 66 20 95 07/08/20 02:48 69 24 157/80 H 94 07/08/20 01:48 69 23 159/79 H 94 07/08/20 00:48 97.5 F L 67 27 H 146/76 H 94 07/08/20 00:13 71 32 H 93 07/07/20 23:00 71 28 H 92 07/07/20 22:03 68 32 H 152/83 H 91 07/07/20 21:00 75 23 89 L reviewed vital signs, labs and imaging Coding Level of Care Code 71918 Subseq Hosp Care Lvl 3 Diagnoses Acute on chronic respiratory failure with hypoxia and hypercapnia J96.21; J96.22 Pleural effusion J90 Diastolic CHF I50.30 Admitted to intensive care unit Z78.9 Hypoxia R09.02
--- NOTE | 2020-07-08 08:49 | Hospitalist Progress Note ---
Date of Service July 08, 2020 Assessment & Plan (1) Respiratory failure: 79 y/o F w/ hx of protein S deficiency and severe kyphosis who presents w/ acute on chronic respiratory failure and severe respiratory acidosis. Continuing to need high amounts of supp O2 and respiratory status not ideal. Acute on chronic hypoxic respiratory failure w/ resulting metabolic encephalopathy - ? secondary to pneumonia with underlying chronic restrictive/mechanical contribution from severe kyphosis - continue BiPAP, oxymask, high flow nasula O2, alternating depending on needs. - goals of care in discussion with family 07/07/20 changed to DNR/DNI. Not comfort measures. Continue goals of care discussion. palliative meeting on 07/09/20 - plan: stepdown to PCU w/ tele today. Pneumonia - from admission XR appears to be secondary to aspiration vs pneumonia -covid negative, nasal MRSA negative 07/06 CXR: Cardiomegaly with persistent pulmonary edema. Bilateral pleural effusions with bibasilar opacities suggestive of atelectasis versus pneumonitis. Moderately improved aeration of the left lung. -continue 7 day course of IV rocephin per ICU team for presumed pneumonia. previously was on IV cefepime and metronidazole -continue bronchodilators. Bilateral pleural effusion - no plans for thoracentesis at this time - cxr 07/08/20: bilat pleural effusions unchanged. some improvement in pulm co ngestion Atrial fibrillation with RVR s/p emergent electrocardioversion 07/04/20 and amiodarone chemical cardioversion - continue amiodarone History of PE in 2010 - INR supratherapeutic 4.6 (07/08/20), hold warfarin. f/u PT/INR. Lower extremity edema: likely from diastolic CHF -echo 07/03/20:65-70%. normal systolic fxn. mild lvh. -continue diuretics and strict I/O's. -per icu note, on 07/07/20, switched from lasix to acetazolamide for metabolic alkalosis. -per verbal discussion w/ Dr. Arce, plan is to continue 1-2 more days of acetazolamide before discontinuing. PRN lasix after HypoK 3.1, Hypophos 2.3 - ICU electrolyte repletion protocol CAD - continue metoprolol and simvastatin HTN - continue metoprolol and clonidine. hydralazine PRN FENGI: NPO. ICU electrolyte replacement protocol. DVT prophylaxis: home warfarin reheld given supratherapeutic INR Code status: DNR/DNI (changed on 07/07/20). palliative care will meet w/ family on 07/09/20 Dispo: stepdown to PCU w/ tele Admission and Anticipated Discharge Date Admission Date: July 03, 2020 Supervising Physician Co-Signing Physician Notes Resident Physician Supervision Note: I independently interviewed and examined the patient and verified the eastman history and physical, reviewed labs and image studies, discussed the case with the resident Dr. Canales and agree with the findings and care plan. Subjective No pain, cp, or sob complaints. no f/c, n/v, chaudhari, dizzi. Answering qs w/ nod/yes/no. Currently on oxymask 10L. Review of Systems Review of Systems: Constitutional: Denies fever, chills Cardiovascular: Denies chest pain Respiratory: Denies shortness of breath Neurological: Denies headache, dizziness Physical Exam Physical Exam: General: Cooperative. Answering simple questions. Somnolent. Frail appearing HEENT: Wearing oxymask. Pulm: R upper has inspiratory crackles. Overall breathing is quick short breaths, labored. Cardiac: RRR, -mrg. Radial pulses intact and symmetrical. Abdominal: Nontender, nondistended, soft. Msk: LE edema is chronic, minimal at this time. Severe kyphosis. Integ: Chronic leg wrinkling changes at shins. Results & Data Results & Data ([facility]) Vital Signs (Past 12 Hours) Vital Signs Temp Pulse Resp BP Pulse Ox 07/08/20 06:48 85 19 172/82 H 90 07/08/20 05:48 81 41 H 141/78 H 92 07/08/20 04:48 36.6 C 68 30 H 150/72 H 93 07/08/20 03:48 67 33 H 162/74 H 94 07/08/20 03:26 66 20 95 07/08/20 02:48 69 24 157/80 H 94 07/08/20 01:48 69 23 159/79 H 94 07/08/20 00:48 36.4 C L 67 27 H 146/76 H 94 07/08/20 00:13 71 32 H 93 07/07/20 23:00 71 28 H 92 07/07/20 22:03 68 32 H 152/83 H 91 07/07/20 21:00 75 23 89 L Resident Activity Tracking Resident Involvement: Resident Care Provided Care Provided: Adult Hospital Medicine (1) Respiratory failure Chronicity: acute Respiratory failure complication: hypoxia and hypercapnia Qualified Code(s): J96.01 - Acute respiratory failure with hypoxia; J96.02 - Acute respiratory failure with hypercapnia
[2020-07-08] MEDS ORDERED: POTASSIUM PHOSPHATE 30 MMOL in SODIUM CHLORIDE 0.9% 500 ML IV ONE (09:00)
[2020-07-08] MEDS ORDERED: POTASSIUM CHLORIDE / WTR 10 MEQ/100 ML PLCT IV SCH (09:00)
[2020-07-08] MEDS: AMIODARONE 200 MG TAB PO SCH (10:07)
[2020-07-08] MEDS: METOPROLOL TARTRATE 50 MG TAB PO SCH ×4 (10:07→21:40)
[2020-07-08] MEDS: acetaZOLAMIDE 250 MG in DEXTROSE 5% 100 ML IV SCH ×2 (10:07→21:49)
[2020-07-08] MEDS: cefTRIAXone SODIUM 1,000 MG in DEXTROSE 5% 50 ML IV SCH (10:07)
[2020-07-08] MEDS: PANTOprazole 40 MG TAB PO SCH (10:08)
[2020-07-08] MEDS ORDERED: POTASSIUM PHOSPHATE 20 MMOL in SODIUM CHLORIDE 0.9% 500 ML IV ONE (12:30)
[2020-07-08] MEDS ORDERED: POTASSIUM PHOSPHATE 9 MMOL in SODIUM CHLORIDE 0.9% 250 ML IV ONE (12:30)
[2020-07-08] MEDS: SIMVASTATIN 20 MG TAB PO SCH ×2 (21:29→21:40)
[2020-07-09 05:02] LABS: Prothrombin Time 58.6 Seconds (9.0-12.0)
[2020-07-09 05:07] LABS: INR 6.1 (0.9-1.1)
[2020-07-09] MEDS: LEVOTHYROXINE SODIUM 50 MCG TABLET PO SCH (05:33)
[2020-07-09 05:51] LABS: BUN Creatinine Ratio 34.8 (10-20); Creatinine Clr Calc Pharmacy 36.5 ml/min; Est GFR (African American) 61.4; Magnesium 2.2 mg/dl (1.8-2.4); Phosphorus 4.6 mg/dl (2.5-4.9); Potassium 5.1 mmol/L (3.5-5.1)
[2020-07-09 06:25] LABS: Hematocrit (blood only) 46.9 % (37-47); Hemoglobin 13.4 g/dL (12.0-16.0); Mean Corpuscular Hemoglobin 30.5 pg (25-34); Mean Corpuscular Hgb Conc 28.6 g/dL (32-36); Mean Corpuscular Volume 106.8 fL (80-100); Platelet Count 143 K/uL (130-400); Red Blood Count 4.39 M/uL (4.2-5.4); White Blood Count 8.12 K/uL (4.8-10.8)
[2020-07-09] MEDS: METOPROLOL TARTRATE 50 MG TAB PO SCH ×2 (08:04→13:46)
[2020-07-09] MEDS: PANTOprazole 40 MG TAB PO SCH (08:04)
[2020-07-09] MEDS: AMIODARONE 200 MG TAB PO SCH (08:04)
[2020-07-09] MEDS: acetaZOLAMIDE 250 MG in DEXTROSE 5% 100 ML IV SCH (09:10)
--- NOTE | 2020-07-09 09:20 | Hospitalist Progress Note ---
Date of Service July 09, 2020 Assessment & Plan (1) Respiratory failure: 79 y/o F w/ hx of protein S deficiency and severe kyphosis who presents w/ acute on chronic respiratory failure and severe respiratory acidosis. Continuing to need high amounts of supp O2 and respiratory status not ideal. not awake/alert this AM. presentation similar to afternoons on previous days saturations ok palliative mtg ~2, 230pm d/c acetazolamide? Acute on chronic hypoxic respiratory failure w/ resulting metabolic encephalopathy - ? secondary to pneumonia with underlying chronic restrictive/mechanical contribution from severe kyphosis - continue BiPAP, oxymask, high flow nasula O2, alternating depending on needs. - goals of care in discussion with family 07/07/20 changed to DNR/DNI. Not comfort measures. Continue goals of care discussion. palliative meeting on 07/09/20 - plan: stepdown to PCU w/ tele today. Pneumonia - from admission XR appears to be secondary to aspiration vs pneumonia -covid negative, nasal MRSA negative 07/06 CXR: Cardiomegaly with persistent pulmonary edema. Bilateral pleural effusions with bibasilar opacities suggestive of atelectasis versus pneumonitis. Moderately improved aeration of the left lung. -continue 7 day course of IV rocephin per ICU team for presumed pneumonia. previously was on IV cefepime and metronidazole -continue bronchodilators. Bilateral pleural effusion - no plans for thoracentesis at this time - cxr 07/08/20: bilat pleural effusions unchanged. some improvement in pulm congestion Atrial fibrillation with RVR s/p emergent electrocardioversion 07/04/20 and amiodarone chemical cardioversion - continue amiodarone History of PE in 2010 - INR supratherapeutic 4.6 (07/08/20), hold warfarin. f/u PT/INR. Lower extremity edema: likely from diastolic CHF -echo 07/03/20:65-70%. normal systolic fxn. mild lvh. -continue diuretics and strict I/O's. -per icu note, on 07/07/20, switched from lasix to acetazolamide for metabolic alkalosis. -per verbal discussion w/ Dr. Arce, plan is to continue 1-2 more days of acetazolamide before discontinuing. PRN lasix after HypoK 3.1, Hypophos 2.3 - ICU electrolyte repletion protocol CAD - continue metoprolol and simvastatin HTN - continue metoprolol and clonidine. hydralazine PRN FENGI: NPO. ICU electrolyte replacement protocol. DVT prophylaxis: home warfarin reheld given supratherapeutic INR Code status: DNR/DNI (changed on 07/07/20). palliative care will meet w/ family on 07/09/20 Dispo: stepdown to PCU w/ tele Admission and Anticipated Discharge Date Admission Date: July 03, 2020 Subjective sleeping, not answering questions today. satting 92. nurse switched from bipap to 10L NC. ros unobtainable Physical Exam Physical Exam: short quick breaths. inspir rhonchi on R heart exam normal abd soft. legs unchanged Results & Data Results & Data ([facility]) Vital Signs (Past 12 Hours) Vital Signs Temp Pulse Resp BP Pulse Ox 07/09/20 07:41 36.9 C 83 32 H 104/56 L 91 07/09/20 05:57 80 24 90 07/09/20 04:36 36.9 C 81 28 H 107/58 L 92 07/09/20 01:28 78 26 H 92 07/08/20 23:59 78 07/08/20 23:31 36.6 C 80 26 H 123/69 92 07/08/20 22:30 76 32 H 91 07/08/20 21:53 36.5 C 73 32 H 104/53 L 89 L (1) Respiratory failure Chronicity: acute Respiratory failure complication: hypoxia and hypercapnia Qualified Code(s): J96.01 - Acute respiratory failure with hypoxia; J96.02 - Acute respiratory failure with hypercapnia
[2020-07-09] MEDS: cefTRIAXone SODIUM 1,000 MG in DEXTROSE 5% 50 ML IV SCH (10:04)
--- NOTE | 2020-07-09 16:02 | Palliative Care Progress Note ---
Date of Service July 09, 2020 Assessment & Plan (1) Palliative care encounter: I met with the family in room 108. Family members present for the meeting include the patients , two daughters, a son, and grandson. The patient has had a gradual decline over the past few days. She has less periods of interacting; however, was able to interact a little this morning and took a few bites of applesauce; however, we are not certain she was able to swallow the food safely. Ultimately, the patient appears obtunded on the bipap with an FiO2 of 60%. Her K+ level this morning was 5.1 and she has become hypotensive over the past 12 hours, SBP 82/38. Lengthy conversation with family held regarding her quality of life,, which, understandably is different for every person. At baseline, she was able to walk with her walker and even perform some of her ADL's independently. We discussed that she will not be able to return to this baseline. I asked family if Melanie was able to participate in this conversation, how she would want her care to be handled and all were in agreement that she wo uld not want this. I explained that the BiPAP mask will not fix her underlying condition and, in fact, is not a permanent solution or comfortable for the patient. The family talked amongst themselves and the was able to give his of 66 years a kiss as the BiPAP mask was removed. All were in agreement that as her SPO2 declines, we will no longer place the BiPAP mask back on, instead medicate with Morphine. The patient is now transitioned to full Comfort Measures. All non-essential medications have been stopped, along with all vital signs, blood draws, etc. Morphine, Robinul and Ativan have been ordered for comfort per the families wishes. I set the expectation that her life expectancy is hours to a day or two. All questions answered and details collaborated with the [facility] Family Medicine Team, including Dr. Ayala. PPS: 10% (2) Acute on chronic respiratory failure with hypoxia and hypercapnia: (3) Diastolic CHF: (4) Acute respiratory acidosis: Admission and Anticipated Discharge Date Admission Date: July 03, 2020 Subjective Pt on BiPAP and obtunded. unable to participate in the ROS conversation. Family at bedside. Goals conversation held. MEDIA MANAGER. See A/P for further details. Review of Systems Review of Systems: Unobtainable due to reduced consciousness Physical Exam Constitutional: + acute distress, + ill appearing and + frail appearing Respiratory: + labored breathing, + uses accessory muscles and + grunting Auscultation: + rales Cardiovascular: Rate/Rhythm: regular rate and regular rhythm Heart Sounds: normal S1 and normal S2 Extremities: normal capillary refill and + edema (bilateral LE) Gastrointestinal (Abdomen): normal bowel sounds, soft, nontender, no hep atosplenomegaly Skin: + skin tightening Psychiatric: Orientation: alert; + not oriented x 3 Lymphatic: + lymphedema (bilateral lower extremities ) Results & Data ([facility]) Vital Signs (Past 12 Hours) Vital Signs Temp Pulse Resp BP Pulse Ox 07/09/20 12:02 36.3 C L 84 36 H 82/38 L 85 L 07/09/20 07:41 36.9 C 83 32 H 104/56 L 91 07/09/20 05:57 80 24 90 07/09/20 04:36 36.9 C 81 28 H 107/58 L 92 PG Care Time/CCT Total # of Minutes Spent Total Time Spent with Patient: Total time spent is greater than 50% in coordination of care (as documented) at patient's floor/unit and/or counseling patient: 65 Coding Level of Care Code 76103 Subseq Hosp Care Lvl 3 Diagnoses Palliative care encounter Z51.5 Acute on chronic respiratory failure with hypoxia and hypercapnia J96.21; J96.22 Diastolic CHF I50.30 Acute respiratory acidosis E87.2 Time Spent (min) 65 Time Spent Midlevel Total time spent 65 minutes with > 50% of that time spent assessing the patient, discussing goals of care with the family, ordering symptom and comfort management medications, and collaborating with the IDT
[2020-07-09] MEDS ORDERED: MoRPHine SULFATE 2 MG/ML CARP IV PRN (16:04)
[2020-07-09] MEDS ORDERED: LORazepam 1 MG/2 ML VIAL IV PRN (16:04)
[2020-07-09] MEDS ORDERED: GLYCOPYRROLATE 0.2 MG/ML VIAL IV PRN (16:04)
--- NOTE | 2020-07-09 16:42 | Death Pronouncement Note ---
Date of Service July 09, 2020 Pronouncement Note Admission Date Admission Date: July 03, 2020 Contributing Factors (1) Palliative care encounter: (2) Acute on chronic respiratory failure with hypoxia and hypercapnia: Contributing factors: 16:29:52. Time of per rhythm strip. pronounced by Dr. Janes Canales MD. On physical exam, Mrs. Ospina was not responsive to stimuli/arousal. The cause of was acute on chronic respiratory failure w/ contribution from suboptimal ventilation 2/2 recent aspiration vs PNA that led to severe respiratory acidosis w/ compensatory metabolic alkalosis. There was no pulse and no spontaneous respirations. There was no pupil response to penlight. Mrs. Ospina's 2 daughters and grandson were present at bedside and informed. Regarding preference for autopsy, the family will contact care management and a contact number was provided. Code status: comfort measures DNR/DNI (3) Diastolic CHF: (4) Acute respiratory acidosis: Additional Data Attending physician: Jemima Ayala MD Resident Activity Tracking Resident Involvement: Resident Care Provided Care Provided: Adult Hospital Medicine
--- NOTE | 2020-07-10 00:21 | Discharge Summary ---
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 Patient has been getting short of breath over the course of the last month but it has come to a head today. She has been ambulating on her own with a walker to and from the bathroom her tells me until the afternoon of 07/02. Several family members had been urging him to take her in to be seen due to her concerning breathing but he was resistant because she has trouble getting around and is blind and didn't want to put her through too much. On presentation to ED patient is hypoxic requiring high flow nasal cannula and steroids. An ABG was obtained showing severe respiratory acidosis, ph of 7.1 bicarb of 33 co2 in the 90's. Labwork significant for elevated white count of 15.55, ESR of 34,INR therapeutic at 3.0, potassium elevated to 5.3, CRP of 10.2 BNP of 3546, albumin 3.2. Chest X ray showing right lower lobe infiltrate vs aspiration and what appears to be a large hiatal hernia. Patient was put on BiPap, intubation was discussed but given her anatomy and improvement in mentation on bipap decision was made to continue bipap. Case discussed with ICU who accepted patient. Admission Exam Per Admitting Provider Constitutional: + acute distress, + ill appearing, + intoxicated appearing, + altered mental status and + physical limitations (Severe kyphoscoliosis) Eyes: PERRL, conjunctivae normal, anicteric sclerae ENMT: external ear and nose normal, oropharynx normal Neck: trachea midline, no thyromegaly Respiratory: + respiratory distress, + labored breathing, + retractions and + uses accessory muscles; + abnormal respiratory effort Auscultation: + breath sounds absent (Particularly right lower lobe but decreased globally), + crackles and + rales; + lungs not clear to auscultation Cardiovascular: Rate/Rhythm: regular rate and regular rhythm Heart Sounds: + murmur Gastrointestinal (Abdomen): normal bowel sounds, soft, nontender, no hepatosplenomegaly Musculoskeletal: no cyanosis or clubbing, extremities motor strength 5/5 Skin: no rashes, warm and dry Neurologic: patellar DTR's 2+ bilat, sensation intact + confused and + obtunded Cranial Nerves: PERRL and EOM intact bilaterally Principal Diagnosis passing 2/2 acute on chronic respiratory failure Discharge Exam General: unresponsive HEENT: no pupil response to light Pulm: no spontaneous repirations Cardiac: no pulse, no cardiac activity on auscultation Discharge Data Allergies Allergy/AdvReac Type Severity Reaction Status Date / Time ibuprofen [From Advil] Allergy Mild Rash Verified 07/02/20 23:21 piperacillin [From Zosyn] Allergy Mild Rash Verified 07/02/20 23:21 tazobactam [From Zosyn] Allergy Mild Rash Verified 07/02/20 23:21 aspirin AdvReac Mild VOMITING Verified 07/02/20 23:21 Consultations 07/02/20 22:24 ED Decision to Admit Stat 07/03/20 02:36 Consult Case Management - Discharge Planning Routine Consult Artisan [employer] Routine 07/05/20 08:12 Consult Palliative Care Routine Hospital Course (1) Respiratory failure: 79 y/o F w/ hx of protein S deficiency and severe kyphosis who presented to [facility] on 07/03/20 w/ acute on chronic respiratory failure and severe respiratory acidosis and passed on 07/09/20. She was continuing to need high amounts of supp O2 via bipap and NC and was progressively worsening. Much less arousable past 24 hrs and was not responding to questions in the AM unlike previous days. passing away 2/2 Acute on chronic respiratory failure with hypoxia and hypercapnia 16:29:52. Time of per rhythm strip. pronounced by Dr. Janes Canales MD. On physical exam, Mrs. Ospina was not responsive to stimuli/arousal. The cause of was acute on chronic respiratory failure w/ contribution from suboptimal ventilation 2/2 recent aspiration vs PNA that led to severe respiratory acidosis w/ compensatory metabolic alkalosis. There was no pulse and no spontaneous respirations. There was no pupil response to penlight. Mrs. Ospina's 2 daughters and grandson were present at bedside and informed. Regarding preference for autopsy, the family will contact care management and a contact number was provided. goals of care discussion - palliative care met w/ family today and explained how the patient's overall status has been progressively declining. family decided on comfort measures today. Acute on chronic hypoxic respiratory failure w/ resulting metabolic encephalopathy - ? secondary to pneumonia with underlying chronic restrictive/mechanical contribution from severe kyphosis - BiPAP, oxymask, high flow nasula O2, alternated depending on needs. - goals of care in discussion with family 07/07/20 changed to DNR/DNI Pneumonia - from admission XR appears to be secondary to aspiration vs pneumonia -covid negative, nasal MRSA negative 07/06 CXR: Cardiomegaly with persistent pulmonary edema. Bilateral pleural effusions with bibasilar opacities suggestive of atelectasis versus pneumonitis. Moderately improved aeration of the left lung. -started 7 day course of IV rocephin per ICU team for presumed pneumonia. previously was on IV cefepime and metronidazole -administered bronchodilators during the admission Bilateral pleural effusion - initially considered but ultimately decided against thoracentesis - cxr 07/08/20: bilat pleural effusions unchanged. some improvement in pulm congestion Atrial fibrillation with RVR s/p emergent electrocardioversion 07/04/20 and amiodarone chemical cardioversion - continued amiodarone History of PE in 2010 - warfarin restarted and held multiple times due to fluctuating INR Lower extremity edema: likely from diastolic CHF -echo 07/03/20:65-70%. normal systolic fxn. mild lvh. -provided diuretics and strict I/O's. -per icu note, on 07/07/20, switched from lasix to acetazolamide for metabolic alkalosis. CAD - continued metoprolol and simvastatin HTN - continued metoprolol and clonidine and added hydralazine prn FENGI: NPO. replaced electrolytes as above DVT prophylaxis: home warfarin (held several times for INR) as above Code status: DNR/DNI (changed on 07/07/20). 07/09/20 comfort measures Dispo: patient has passed (2) determined by examination: (3) Protein S deficiency: (4) CAD (coronary artery disease): (5) Palliative care encounter: (6) Counseling regarding goals of care: (7) Pleural effusion: (8) Diastolic CHF: (9) Acute on chronic respiratory failure with hypoxia and hypercapnia: (10) Hypoxia: (11) Pneumonia: (12) Acute respiratory acidosis: (13) HTN (hypertension): Total Time Total Time Spent Total Time Spent (In Minutes): Please see attending documentation. Discharge Plan Discharge Items Patient Disposition: Supervising Physician Co-Signing Physician Notes Resident Physician Supervision Note: I independently interviewed and examined the patient and verified the eastman history and physical, reviewed labs and image studies, discussed the case with the resident Dr. Canales and agreed with the findings and care plan. Resident Activity Tracking Resident Involvement: Resident Care Provided Care Provided: Adult Hospital Medicine
== END 2020-07-09 16:29 | disposition expired | DRG 189 ==
LOC: ED 20:30 → SUATTDRO 07-03 01:55 → 1E 07-03 01:55